=== PATIENT | male | born 1945 | race Caucasian/White ===

== ENCOUNTER 2017-06-15 09:46 | Emergency (ER) | payer MEDICARE, OTHER ==
[~2017-06-15] VITALS: Ht 172.7 cm; Wt 142.4 kg
[~2017-06-15 09:46] MED LIST: ADULT LOW DOSE81 MG PO; ALLEGRA ALLERG180 MG PO; ALLEGRA180 MG PO; ALPRAZOLAM 0.0.25 M1 PO; AMITRIPTYLINE H50 M2 PO; ANASPAZ0.125 MG DISSOLVE; ASPIR 8181 MG PO; ASPIRIN EC81 M1; ASPIRIN81 M2 PO; ASTROVASTIN PO; ATORVASTATIN CA80 MG PO; ATROVENT; ATROVENT30 ML NS; AVAPRO300 MG PO; B COMPLEX WITH1 EACH PO; BACLOFEN 10 MG10 MG PO; BENADRYL25 MG PO; BRILINTA90 MG PO; CALCIUM 500 +1 EAC5 PO; CALCIUM PO; CARDIO OMEGA B1 EACH PO; CARVEDILOL25 MG; CARVEDILOL25 MG PO; CELEXA 20 MG TA20 M1 PO; CENTRAVITES 501 EACH PO; CENTRUM SILVER1 EAC1 PO; CHLOR-TABLET4 MG PO; CHLOR-TRIMETON PO; COREG PO; COZAAR 50 MG TA50 M1 PO; CVS FISH OIL 11 EAC3 PO; EFFIENT10 MG; ETODOLAC 400 M400 M1; ETODOLAC 400 M400 M1 PO; ETODOLAC 400 M400 MG PO; FAMCICLOVIR250 MG PO; FELODIPINE 5 MG5 M1; FELODIPINE 5 MG5 M1 PO; FELODIPINE ER10 MG PO; FISH OIL 1,0001 EAC5 PO; FLOMAX0.4 MG PO; FLONASE 0.05%50 MCG NASAL; FLONASE INH; FLOVENT; FOLIC ACID; FOLIC ACID 40400 MC1 PO; FUROSEMIDE 40 M40 M1; FUROSEMIDE 40 M40 M1 PO; GENTAMICIN SU3 MG/ML OPHTHALMIC; GLUCOPHAGE XR500 MG; GLUCOPHAGE1000 MG PO; GLUCOPHAGE500 MG PO; HYDROCORTISONE30 G4 TOP; IMDUR 30 MG TAB30 M1 PO; IMDUR 60 MG TAB60 M1; IMDUR 60 MG TAB60 M1 PO; IMDUR120 MG PO; IPRATROPIUM BRO15 ML NASAL; IPRATROPIUM BROMIDE INH; IRBESARTAN PO; KETOCONAZOLE CREAM TOP; KETOCONAZOLE15 GM TOP; KLOR-CON 1010 MEQ; KLOR-CON 1010 MEQ PO; LASIX 20 MG TAB20 MG PO; LASIX 40 MG TAB40 M2 PO; LIPITOR 20 MG T20 M1 PO; LOPERAMIDE 2 MG2 M1 PO; LOSARTAN PO; LOSARTAN POTAS100 MG; LYCOPENE PO; LYCOPENE10 MG PO; MAALOX SUSPENS148 ML PO; MEDROLDOSEPACK; MELATONIN5 M2 PO; MINIPRIN81 MG PO; MUCINEX1200 MG PO; NEURONTIN 300300 M1 PO; NIASPAN ER 101000 M1 PO; NITROGLYCERIN SL; NITROGLYCERIN0.4 MG SUBLING; NITROQUICK0.4 MG; OMEGA 3 PO; OMEGA-3 PO; ONDANSETRON HCL4 M2 PO; PAIN & FEVER325 MG PO; PLAVIX 75 MG TA75 M1 PO; PLAVIX 75 MG TA75 MG; PLAVIX 75 MG TA75 MG PO; PRESERVISION A1 EAC2 PO; PRESERVISION A1 EACH PO; PRINIVIL20 MG PO; PROAIR HFA8.5 GM INH; PROTONIX40 M2 PO; RANEXA 500 MG500 M1 PO; RANEXA500 MG PO; RANITIDINE 150150 MG PO; SIMVASTATIN80 MG PO; TRAMADOL 50 MG50 MG PO; VITAMIN B-12500 MCG PO; VITAMIN C + RO500 MG PO; VITAMIN E200 UNI4 PO; VITAMINC500 PO; ZOCOR80 MG; ZOCOR80 MG PO; [UNRECOGNIZED DRUG - OTHER]; [UNRECOGNIZED DRUG - OTHER] PO; [UNRECOGNIZED DRUG - OTHER] PO; [UNRECOGNIZED DRUG - OTHER] PO; [UNRECOGNIZED DRUG - REMARK]
--- NOTE | 2017-06-15 09:49 | NUR ---
PT INSISTS ON GOING TO BATHROOM PRIOR TO EKG.
[2017-06-15 09:51] VITALS: BP 140/50
[2017-06-15 10:16] LABS: ABSOLUTE BASOPHILS 0.1 thou/uL (0.0-0.2); ABSOLUTE EOSINOPHILS 0.3 thou/uL (0.0-0.7); ABSOLUTE LYMPHOCYTES 0.8 thou/uL (0.8-5.3); ABSOLUTE MONOCYTES 0.8 thou/uL (0.0-1.2); ABSOLUTE NEUTROPHILS 5.5 thou/uL (1.6-8.1); BASOPHILS 0.7 %; EOSINOPHILS 3.8 %; HEMATOCRIT 37.1 % (42.0-52.0); HEMOGLOBIN 12.1 gm/dL (14.0-18.0); LYMPHOCYTES 11.3 %; MCH 29.3 pg (26.0-34.0); MCHC 32.6 g/dL (28.0-37.0); MONOCYTES 10.8 %; MPV 7.9 fl. (7.2-11.1); NUCLEATED RBCS 0 /100WBC; PLATELET COUNT* 250 thou/uL (150-400); POLYS 73.4 %; RBC 4.12 mil/uL (4.50-6.00); RDW-CV 17.9 % (10.5-14.5); WBC 7.5 thou/uL (4.0-11.0)
[2017-06-15 10:23] LABS: CALCIUM 8.8 mg/dL (8.5-10.1); CREATININE 1.4 mg/dL (0.6-1.3)
[2017-06-15 10:34] LABS: ALBUMIN 3.9 g/dL (3.4-5.0); TOTAL BILIRUBIN 0.5 mg/dL (<0.1-1.0); TOTAL PROTEIN 7.7 g/dL (6.4-8.2)
[2017-06-15] MEDS ORDERED: MUCINEX DM ER1 EACH PO (11:40)
[2017-06-15] MEDS ORDERED: POTASSIUM20 PO (11:42)
[2017-06-15] MEDS ORDERED: BENADRYL25 MG PO (11:45)
[2017-06-15 12:11] VITALS: BP 158/53
--- NOTE | 2017-06-15 16:10 | EKG ---
[place] [address] ELECTROCARDIOGRAM REPORT Name: CRAIG SMION Room: [facility]#: [id number] Admission: 06/15/17 Attend Phys: Discharge: 06/15/17 Date of : 43 Report #: [id number] THIS REPORT FOR: //name// [facility] ED Test Date: 2017-06-15 Test Time: 09:53:41 Pat Name: CRAIG SIMON Department: Room: [facility] Gender: M Design Teacher: STUDENT : 1945 Requested By: Tito Gutierrez Order Number: [id number] MD: Solomon Schaffer Measurements Intervals [place] Rate: 79 P: 60 NH: 211 QRS: 52 QRSD: 111 T: 225 QT: 396 QTc: 455 Interpretive Statements Sinus rhythm Inferior and lateral ST segment depression, consider ischemia Baseline wander in lead(s) V3 Compared to ECG 03/15/2017 03:08:02 No significant changes noted Electronically Signed On 06-15-2017 16:10:02 AUDIOMETRIST by Solomon Schaffer [email or web address] <ELECTRONICALLY SIGNED> By: Solomon Schaffer MD, [facility] 06/15/17 1610 0953 0953 Solomon Schaffer MD, [facility] /EPI
== END 2017-06-15 12:14 | disposition left against medical advice (07) ==
LOC: M.ERS 09:46 → M.TBA-ER 11:07
PROVIDERS: Emergency Medicine Emergency Medical Services
DX: R07.9 Chest pain, unspecified (principal); E78.5 Hyperlipidemia, unspecified; E66.01 Morbid (severe) obesity due to excess calories; I25.10 Atherosclerotic heart disease of native coronary artery without angina pectoris; Z96.653 Presence of artificial knee joint, bilateral; Z88.8 Allergy status to other drugs, medicaments and biological substances; Z88.2 Allergy status to sulfonamides; Z68.42 Body mass index [BMI] 45.0-49.9, adult

== ENCOUNTER 2017-06-23 09:00 | Inpatient (IN) | payer MEDICARE, OTHER ==
[2017-06-23] VITALS (11 sets, daily range): BP systolic 107–167; BP diastolic 32–79
[~2017-06-23] VITALS: Ht 172.7 cm; Wt 141.1 kg
--- NOTE | ~2017-06-23 | H ---
[address] [address] HISTORY AND PHYSICAL Name: CRAIG SIMON Room: [address]#: [id number] Admission: 06/23/17 Attend Phys: Helio Malone MD, Discharge: 06/24/17 Date of : 43 Report #: [id number] THIS REPORT FOR: //name// Please refer to the History and Physical performed in the physician's office. By: 1449Medical Records Staff MELANIA /EMILIA
[~2017-06-23 09:00] MED LIST changes: +MUCINEX DM ER1 EACH PO; +POTASSIUM20 PO
[2017-06-23 09:50] LABS: HEMATOCRIT 36.5 % (42.0-52.0); HEMOGLOBIN 11.8 gm/dL (14.0-18.0); MCH 29.4 pg (26.0-34.0); MCHC 32.4 g/dL (28.0-37.0); MCV 90.7 fL (80.0-100.0); MPV 7.3 fl. (7.2-11.1); RBC 4.02 mil/uL (4.50-6.00); WBC 7.7 thou/uL (4.0-11.0)
[2017-06-23] MEDS ORDERED: TYLENOL EXTRA500 MG PO (09:57)
[2017-06-23 10:01] LABS: APTT 27.3 Seconds (25.0-31.3); INR 1.1; PROTIME 10.7 Seconds (9.20-11.50)
[2017-06-23 10:07] LABS: ALBUMIN 3.6 g/dL (3.4-5.0); CALCIUM 9.1 mg/dL (8.5-10.1); CREATININE 1.4 mg/dL (0.6-1.3); POTASSIUM 4.2 mmol/L (3.5-5.1); TOTAL BILIRUBIN 0.6 mg/dL (<0.1-1.0); TOTAL PROTEIN 7.2 g/dL (6.4-8.2)
--- NOTE | 2017-06-23 14:50 | NUR ---
PT ARRIVED ON THE UNIT FROM PHOTOGRAPHIC LABORATORY SUPERVISOR. REPORT TAKEN FROM EWA GODWIN. R REX DRSG IS CLEAN DRY AND INTACT. VSS WNL. PT IS A&O WITH NO C/O PAIN. LUNGS ARE CLEAR ON ROOM AIR. FAMILY IS AT BEDSIDE. FALL RISK AND MEDICARE RIGHTS SIGNED AND IN CHART. PT HAS A BLACK WITH CLEAR YELLOW URINE. BED IS IN LOW POSTION CALL LIGHT IN REACH. EDUCATION GIVEN. WM.
--- NOTE | 2017-06-23 17:28 | EKG ---
[place] [address] ELECTROCARDIOGRAM REPORT Name: CRAIG SIMON Room: [address] IN M.R.#: [id number] Admission: 06/23/17 Attend Phys: Helio Malone MD, Discharge: Date of : 43 Report #: [id number] THIS REPORT FOR: //name// [facility] Test Date: 2017-06-23 Test Time: 09:41:57 Pat Name: CRAIG SIMON Department: Room: [facility] Gender: M Diagnostics Tech: PJ : 1945 Requested By: Helio Malone Order Number: [id number] Tip MD: Helio Malone Measurements Intervals [place] Rate: 64 P: 72 RI: 212 QRS: 49 QRSD: 112 T: 206 QT: 432 QTc: 446 Interpretive Statements Sinus rhythm Borderline prolonged RI interval Incomplete left bundle branch block Probable LVH with secondary repolarization abnormality Electronically Signed On 06-23-2017 17:28:24 FITNESS LEADER by Helio Malone [email or web address] <ELECTRONICALLY SIGNED> By: Helio Malone MD, [facility] 06/23/17 1728 D: [id number] 0 Helio Malone MD, FACC /EPI
--- NOTE | 2017-06-23 17:30 | EKG ---
[place] [address] ELECTROCARDIOGRAM REPORT Name: CRAIG SIMON Room: [address] ADM IN M.R.#: [id number] Admission: 06/23/17 Attend Phys: Helio Malone MD, Discharge: Date of : 43 Report #: [id number] THIS REPORT FOR: //name// [facility] Test Date: 2017-06-23 Test Time: 15:53:26 Pat Name: CRAIG SIMON Department: Room: [address] Gender: M Registered Veterinary Technician: MISAEL : 1945 Requested By: Helio Malone Order Number: [id number] Tip MD: Helio Malone Measurements Intervals [place] Rate: 68 P: 0 W[place]: 171 QRS: 60 QRSD: 112 T: 246 QT: 393 QTc: 418 Interpretive Statements Sinus rhythm Incomplete left bundle branch block Compared to ECG 06/15/2017 09:53:41 no significant interval change Electronically Signed On 06-23-2017 17:30:20 RECORDING STUDIO INTERN by Helio Malone [email or web address] <ELECTRONICALLY SIGNED> By: Helio Malone MD, [facility] 06/23/17 1730 1553 1553 Helio Malone MD, FAC /EPI
[2017-06-24] VITALS: BP 100/45
--- NOTE | 2017-06-24 03:06 | NUR ---
PT ALERT ORIENTED. R REX HARDY D/I. OOB AT 1999. UP TO CHAIR WITH STAND BY ASSIST. TELEMETRY SHOWS SR BBB 1ST DEGREE AVB. DENIES CP OR DISCOMFORT. TRAMADOL GIVEN HS FOR MILD BACK PAIN. XANAX GIVEN FOR ANXIETY. NS INFUSING AT 100MLS/HR THEN DC THIS AM AT 0600. BLACK WITH CLEAR YELLOW. WILL CONTINUE TO MONITOR.
[2017-06-24 04:51] VITALS: BP 119/33
[2017-06-24 04:51] LABS: HEMATOCRIT 34.2 % (42.0-52.0); HEMOGLOBIN 11.3 gm/dL (14.0-18.0); MCHC 33.1 g/dL (28.0-37.0); MCV 90.7 fL (80.0-100.0); MPV 7.6 fl. (7.2-11.1); RBC 3.77 mil/uL (4.50-6.00); WBC 8.9 thou/uL (4.0-11.0)
[2017-06-24 05:26] LABS: ALBUMIN 3.4 g/dL (3.4-5.0); ALKALINE PHOSPHATASE 58 U/L (46-116); ANION GAP 7 mmol/L (7-16); BUN 22 mg/dL (7-18); CALCIUM 8.6 mg/dL (8.5-10.1); CHLORIDE 109 mmol/L (98-107); CO2 27 mmol/L (21-32); CREATININE 1.3 mg/dL (0.6-1.3); GLUCOSE 106 mg/dL (70-99); POTASSIUM 4.8 mmol/L (3.5-5.1); SGOT 23 U/L (15-37); SGPT 29 U/L (30-65); SODIUM 143 mmol/L (136-145); TOTAL BILIRUBIN 0.7 mg/dL (<0.1-1.0); TOTAL PROTEIN 6.5 g/dL (6.4-8.2); TROPONIN-I LEVEL 0.35 ng/mL (<0.06)
[2017-06-24 05:30] LABS: SERUM ASSESSMENT Clear
[2017-06-24 05:41] LABS: CHOLESTEROL 123 mg/dL (<200); HDL CHOLESTEROL 38 mg/dL (>40); LDL CHOLESTEROL 69 mg/dL (<100); TC:HDL 3.2 Ratio (Not establshd); TRIGLYCERIDE 83 mg/dL (<150); VLDL 17 mg/dL (<40)
--- NOTE | 2017-06-24 06:59 | NUR ---
BLACK WITH DARK KATELIN BLOOD TINGED URINE.
[2017-06-24 08:00] VITALS: BP 146/50
[2017-06-24 09:21] VITALS: BP 167/43
--- NOTE | 2017-06-24 10:45 | CARD ---
[address] [address] CARDIAC CATH REPORT Name: CRAIG SIMON Room: [address] IN ..#: [id number] Admission: 06/23/17 Attend Phys: Helio Malone MD, Discharge: Date of : 43 Report #: [id number] THIS REPORT FOR: //name// APPROVED REPORT Patient Details The patient is a 72 year-old male Event Personnel Lindsay Gimenez RN, Helio Malone Boat Deckhand, Yamilet Garcia RTR Monitor, Satya Jo Procedures Performed Art Access - R femoral artery* PAVAN Revasc Graft Single DIAG C9604 SVGREVSING PTCA Single Vessel LAD [id number] PCISINGLE; selective coronary arteriography and graft study Indication Unstable angina Risk Factors Obesity, Hypercholesterolemia, Hypertension Previous Procedures/Diagnoses Previous CABGPrevious PCI Admission/Lab Medications/Medications given during procedure Lidocaine Subcut 5 ml, Heparin IV 20,, Ticagrelor PO 180 mg, Aspirin PO 81 mg000 units Procedure Narrative A [place] 6 FR sheath was inserted into the right femoral artery. Coronary angiography was performed using coronary diagnostic catheters. The left coronary system was accessed and visualized with a 6FR JL 4.0 catheter. Closure device was deployed with a 6 Fr Angioseal STS 6Fr. The patient tolerated the procedure well and there were no complications associated with the procedure. Intraoperative Conscious Sedation Sedation start time: 11:34 Case end Time: 13:26 Fentanyl 50 mcg Versed 4 mg Fluoro Time: 25.8 [place] [address] CARDIAC CATH REPORT Name: CRAIG SIMON Room: [address] IN [facility].#: [id number] Admission: 06/23/17 Attend Phys: Helio Malone MD, Discharge: Date of : 43 Report #: [id number] Dose: DAP 52101 cGycm2 4405.59 mGy Contrast Type and Amount: Visipaque 560 ml [place] Artery Percent Stenosis #1 previously defined widely patent LYON graft to the LAD #2 patent interposition graft vein the diagonal and circumflex with 90% proximal graft narrowing and tandem 50% mid graft stenosis Diagnostic Cath Left Main 0% narrowing LAD 70% tubular very proximal LAD in-stent restenosis with tandem 80% mid LAD stenosis with retrograde filling of the LYON graft Circumflex Prominent though nondominant circumflex with 80% heavily calcified mid vessel stenosis Right Coronary Previously defined small nondominant vessel without significant narrowing Hemodynamics The aortic pressure is 151/59 mmHg with a mean of 87 mmHg. PCI Technique Lesion Anticoagulation was achieved with Heparin. Percutaneous coronary intervention was performed on the vein graft to the diagnonal branch. The lesion stenosis prior to intervention was 90% with MICHAEL 3 flow. A 6FR LAUNCHER JL4.0 Guide Catheter was used to engage the ostium. A IG: BMW 190cm Interventional Guidewire was used to cross the lesion. BALLOON DILATION A Balloon catheter Trek RX 2.5 X 12 was inserted and inflated up to 16.00atm for 10seconds. Additional Inflation: 16.00atm for 6seconds. Additional Inflation: 18.00atm for 6seconds. STENT DEPLOYMENT A drug-eluting stent Xience Alpine RX 3.0X15 was inserted and inflated up to 17.00atm for 12seconds. Additional Inflation: 16.00atm for 10seconds. Final angiography reveals 0 % stenosis with MICHAEL 3 flow. PCI Technique Lesion 2 Percutaneous Coronary Intervention was performed on the proximal left anterior descending artery segment. The [place] [address] CARDIAC CATH REPORT Name: CRAIG SIMON Room: [address]#: [id number] Admission: 06/23/17 Attend Phys: Helio Malone MD, Discharge: Date of : 43 Report #: [id number] intervention was 75% with MICHAEL 3 flow. Balloon Dilation A Balloon catheter 3.0 x15 stent balloon was inserted and inflated up to 15.00atm for 15seconds. Repeat angiography revealed the following post-dilatation results: 10% residual narrowing. Final angiography reveals 10 % stenosis with MICHAEL 3 flow. Conclusion #1 significant coronary artery disease characterized by the following: A 75% very proximal LAD in-stent restenosis followed by tandem 80% mid LAD stenosis with retrograde filling of a widely patent LYON graft, B 80% heavily calcified stenosis of the midportion of the prominent though nondominant circumflex, C previously defined nondominant right coronary artery without significant narrowing #2 graft study characterized by the following A widely patent LYON graft to the LAD, B patent interposition graft between the diagonal and circumflex with 90% proximal graft narrowing and tandem 50% mid graft stenosis #3 successful percutaneous coronary intervention with deployment of drug-eluting stent at site of 90% stenosis in the graft to the circumflex with 0% residual following stent deployment and MICHAEL-3 flow to the distal vessel #4 successful percutaneous vessel coronary angioplasty at the site of 75% very proximal LAD in-stent restenosis with 10% residual narrowing following final dilatation and MICHAEL-3 flow to the distal vessel Recommendations Aggressive Medical Therapy Weight Loss Reduction [place] [address] CARDIAC CATH REPORT Name: ADEBAYODONATOCRAIG Aida Room: [address]#: [id number] Admission: 06/23/17 Attend Phys: Helio Malone MD, Discharge: Date of : 43 Report #: [id number] Aspirin (any) Ticagrelor <ELECTRONICALLY SIGNED> By: Helio Malone MD, [facility] 06/24/17 1044 1044 1044Helio Malone MD, FACC /INF
--- NOTE | 2017-06-24 12:14 | NUR ---
ASSUMED CARE OF PT THIS AM ASSESSED AND DOCUMENTED. PT D/C'D TO HOME. ALL CONSULTS OK WITH D/C. D/C'D SOFIA, ROBBY, AND CARDIAC MONITER. EDUCATION GIVEN RE: FOLLOW-UPS, MEDICATIONS, AND DR ORDERS. APPT CARDS GIVEN. ALL BELONGINGS PACKED UP AND LEFT WITH PT ACCOMPANIED BY STAFF.
--- NOTE | 2017-06-24 12:51 | EKG ---
[place] [address] ELECTROCARDIOGRAM REPORT Name: CRAIG SIMON Room: [address] DIS IN M.R.#: [id number] Admission: 06/23/17 Attend Phys: Helio Malone MD, Discharge: 06/24/17 Date of : 43 Report #: [id number] THIS REPORT FOR: //name// Test Date: 2017-06-24 Test Time: 08:13:38 Pat Name: CRAIG SIMON Department: Room: [address] Gender: M Houseman: 26 : 1945 Requested By: Helio Malone Order Number: [id number] Reading MD: Solomon Schaffer Measurements Intervals [place] Rate: 65 P: 70 MT: 196 QRS: 40 QRSD: 108 T: 173 QT: 413 QTc: 430 Interpretive Statements Sinus rhythm Nonspecific repol abnormality, lateral leads Compared to ECG 06/23/2017 15:53:26 Early repolarization now present Left bundle-branch block no longer present Electronically Signed On 06-24-2017 12:51:05 CURBSTONE SETTER by Solomon Schaffer [email or web address] <ELECTRONICALLY SIGNED> By: Solomon Schaffer MD, FACC 06/24/17 1251 0813 2 Solomon Schaffer MD, FAC /EPI
--- NOTE | 2017-07-06 17:13 | D ---
[address] [address] DISCHARGE SUMMARY Name: CRAIG SIMON Room: [address] IN M.R.#: [id number] Admission: 06/23/17 Attend Phys: Helio Malone MD, Discharge: 06/24/17 Date of : 43 Report #: [id number] THIS REPORT FOR: //name// CC: Helio Aggarwal [facility] DATE OF SERVICE: 06/24/2017 FINAL DISCHARGE DIAGNOSES: 1. Unstable angina. 2. Coronary artery disease, status post remote coronary artery bypass grafting. 3. Status post percutaneous coronary intervention with the vein graft to the circumflex and proximal left anterior descending. 4. Hypercholesterolemia. 5. Hypertension. 6. Exogenous obesity. 7. Status post aortic valve replacement. 8. Chronic pulmonary disease. PROCEDURES: On 06/23/2017 -- selective coronary arteriography and graft study; percutaneous coronary intervention with deployment of drug-eluting stent and the vein graft to the circumflex with dilatation of the in-stent restenotic proximal LAD lesion. He was found to have some flow. He is a 72-year-old male with complex coronary artery disease, status post remote coronary artery bypass grafting and more recent percutaneous coronary interventions. He presented with unstable angina, underwent cardiac catheterization on 06/23/2017. That study demonstrated 70-75% proximal LAD in-stent restenosis with 90% stenosis of the portion of the vein graft connecting the diagonal and circumflex. He had a widely patent LYON graft to the LAD and a nondominant right coronary artery. There was 90% heavily calcified stenosis of the mid portion of the [place] circumflex, with the circumflex being filled by the interposition graft from the diagonal to the circumflex. The patient did well post-procedurally. I placed one 3.0 x 15 mm Xience Alpine drug-eluting stent in the vein graft to the circumflex and dilated the proximal LAD with a 3.0 x 15 balloon inflated to 18 atmospheres, with 20% residual narrowing there and 0% residual narrowing in the graft with MICHAEL 3 flow of the distal circulation. The patient did well post-procedurally with good hemostasis at the right femoral site of catheterization. Lab revealed a hemoglobin of 11.3, white blood cell count of 8900, with 215,000 platelets. Sodium 143, potassium 4.8; BUN 22, down from 31; creatinine 1.3, down from 1.4. Glucose 106, cholesterol 123, triglycerides 83, HDL 38, LDL 69 [place] [address] DISCHARGE SUMMARY Name: CRAIG SIMON Room: [address]#: [id number] Admission: 06/23/17 Attend Phys: Helio Malone MD, Discharge: 06/24/17 Date of : 43 Report #: [id number] The patient ambulated in the hallways without difficulty. He was discharged home on the following medications: Acetaminophen 500 mg 2 tablets 4 times a day as needed for pain, ascorbic acid or vitamin C 500 mg 2 tablets daily, aspirin 81 mg daily, atorvastatin 20 mg daily, calcium carbonate 2 tablets daily, carvedilol 25 mg b.i.d., cyanocobalamin 1250 mcg daily, Chelsie 180 mg daily, fluticasone 1-2 sprays nasally daily, furosemide 40 mg in the a.m. and 20 mg at noon, Guaifenesin one tablet b.i.d., ipratropium bromide 1-2 sprays nasally t.i.d., isosorbide mononitrate 30 mg q.a.m., losartan 50 mg daily, fish oil omega-3 fatty acid 1000 mg daily, potassium chloride 20 mEq in the evening, ranitidine 300 mg at bedtime, ranolazine 1000 mg b.i.d., ticagrelor 90 mg b.i.d. with 180 mg given periprocedurally, vitamin C and zinc 2 tablets daily. The patient is scheduled to return to see my nurse practitioner, Elmira Mccracken, on 07/04/2017 at 1400 and myself on 08/08/2017 at 0900. Thus, the patient is discharged to home in stable condition on the aforementioned medications with followup as iterated above. <ELECTRONICALLY SIGNED> By: Helio Malone MD, [facility] 07/06/17 1713 0935 1130Jokaty Malone MD, [facility] /nt
== END 2017-06-24 12:12 | disposition home or self-care (01) | DRG 247 ==
LOC: M.CL 09:00 → M.TBA-CV 13:42 → M.2W 13:42
PROVIDERS: ADMIT Internal Medicine
PROC: 4A023N7 Measurement of Cardiac Sampling and Pressure, Left Heart, Percutaneous Approach (ICD-10-PCS; principal; 2017-06-24)
PROC: B2111ZZ Fluoroscopy of Multiple Coronary Arteries using Low Osmolar Contrast (ICD-10-PCS; principal; 2017-06-24)
PROC: 027034Z Dilation of Coronary Artery, One Artery with Drug-eluting Intraluminal Device, Percutaneous Approach (ICD-10-PCS; principal; 2017-06-24)
DX: I25.720 Atherosclerosis of autologous artery coronary artery bypass graft(s) with unstable angina pectoris (principal); T82.855A Stenosis of coronary artery stent, initial encounter; Z68.42 Body mass index [BMI] 45.0-49.9, adult; Y83.8 Other surgical procedures as the cause of abnormal reaction of the patient, or of later complication, without mention of misadventure at the time of the procedure; E78.00 Pure hypercholesterolemia, unspecified; I10 Essential (primary) hypertension; J44.9 Chronic obstructive pulmonary disease, unspecified; E66.09 Other obesity due to excess calories; Z95.1 Presence of aortocoronary bypass graft; Z95.2 Presence of prosthetic heart valve; Y92.89 Other specified places as the place of occurrence of the external cause; Z79.899 Other long term (current) drug therapy

== ENCOUNTER → 2017-06-27 | Outpatient (CLI) | payer MEDICARE, OTHER ==
[~2017-06-27] MED LIST changes: +ALLERGY RELIEF180 MG PO; +AMBIEN 5 MG TABL5 M1 PO; +CARAFATE 1 GM TA1 G1 PO; +COZAAR 25 MG TA25 M2 PO; +DULCOLAX5 MG PO; +ELIQUIS5 MG PO; +FISH OIL 1,001000 M2 PO; +HUMALOG100 UNIT/1 SUBQ; +IPRAT-ALBUT 0.5-3 ML INH; +IPRATROPIU0.2 MG/1 M NASAL; +IRON325 PO; +KEFLEX500 M1 PO; +PREDNISONE 10 M10 MG PO; +PROAIR HFA8.5 GM NASAL; +PROTONIX40 M1 PO; +SPIRONOLACTONE25 M1 PO; +SPIRONOLACTONE25 MG PO; +TOPROL XL25 MG PO; +TUMS PO; +TYLENOL EXTRA500 MG PO; +ZANTAC 150MG T150 MG PO
== END ==
LOC: M.ULTRA 11:30
DX: R10.31 Right lower quadrant pain (principal)

== ENCOUNTER 2017-08-07 10:30 | Observation (INO) | payer MEDICARE, OTHER ==
[2017-08-07] VITALS (11 sets, daily range): BP systolic 123–147; BP diastolic 49–60
[~2017-08-07] VITALS: Ht 172.7 cm; Wt 145.6 kg
--- NOTE | ~2017-08-07 | H ---
[address] [address] HISTORY AND PHYSICAL Name: CRAIG SIMON Room: [address] [place] Beg[place]#: [id number] Admission: 08/07/17 Attend Phys: Helio Malone MD, Discharge: 08/08/17 Date of : 43 Report #: [id number] THIS REPORT FOR: //name// Please refer to the History and Physical performed in the physician's office. By: 1452Medical Records Staff MELANIA /EMILIA
--- NOTE | ~2017-08-07 | EKG ---
[place] [address] ELECTROCARDIOGRAM REPORT Name: CRAIG SIMON Room: [address] ADM IN M.R.#: [id number] Admission: 08/07/17 Attend Phys: Helio Malone MD, Discharge: Date of : 43 Report #: [id number] THIS REPORT FOR: //name// [facility] Test Date: 2017-08-08 Test Time: 08:32:48 Pat Name: CRAIG SIMON Department: Room: [facility] Gender: M Customs Guard: : 1945 Requested By: Helio Malone Order Number: [id number] Reading MD: Measurements Intervals [place] Rate: 75 P: 78 [place]: 204 QRS: 64 QRSD: 109 T: 229 QT: 413 QTc: 462 Interpretive Statements Sinus rhythm Nonspecific repol abnormality, diffuse leads Baseline wander in lead(s) III Compared to ECG 08/07/2017 14:34:50 Atrial fibrillation no longer present [email or web address] By: 0832 0832 Epiphany EpiphanyMD /EPI
[~2017-08-07 10:30] MED LIST changes: -ALLERGY RELIEF180 MG PO; -AMBIEN 5 MG TABL5 M1 PO; -CARAFATE 1 GM TA1 G1 PO; -COZAAR 25 MG TA25 M2 PO; -DULCOLAX5 MG PO; -ELIQUIS5 MG PO; -FISH OIL 1,001000 M2 PO; -HUMALOG100 UNIT/1 SUBQ; -IPRAT-ALBUT 0.5-3 ML INH; -IPRATROPIU0.2 MG/1 M NASAL; -IRON325 PO; -KEFLEX500 M1 PO; -PREDNISONE 10 M10 MG PO; -PROAIR HFA8.5 GM NASAL; -PROTONIX40 M1 PO; -SPIRONOLACTONE25 M1 PO; -SPIRONOLACTONE25 MG PO; -TOPROL XL25 MG PO; -TUMS PO; -ZANTAC 150MG T150 MG PO
[2017-08-07 11:01] LABS: HEMATOCRIT 39.7 % (42.0-52.0); HEMOGLOBIN 13.1 gm/dL (14.0-18.0); MCH 30.8 pg (26.0-34.0); MCV 93.4 fL (80.0-100.0); MPV 7.6 fl. (7.2-11.1); RBC 4.25 mil/uL (4.50-6.00); RDW-CV 17.2 % (10.5-14.5); WBC 8.8 thou/uL (4.0-11.0)
[2017-08-07 11:10] LABS: ANION GAP 12 mmol/L (7-16); BUN 22 mg/dL (7-18); CALCIUM 9.4 mg/dL (8.5-10.1); CHLORIDE 103 mmol/L (98-107); CO2 25 mmol/L (21-32); CREATININE 1.2 mg/dL (0.6-1.3); GLUCOSE 88 mg/dL (70-99); SODIUM 140 mmol/L (136-145)
[2017-08-07 11:11] LABS: APTT 27.5 Seconds (25.0-31.3); PROTIME 10.1 Seconds (9.20-11.50)
[2017-08-07 11:15] LABS: ALBUMIN 3.9 g/dL (3.4-5.0); ALKALINE PHOSPHATASE 65 U/L (46-116); CHOLESTEROL 141 mg/dL (<200); HDL CHOLESTEROL 47 mg/dL (>40); LDL CHOLESTEROL 63 mg/dL (<100); SERUM ASSESSMENT Clear; SGOT 20 U/L (15-37); SGPT 29 U/L (30-65); TOTAL BILIRUBIN 0.5 mg/dL (<0.1-1.0); TRIGLYCERIDE 159 mg/dL (<150); VLDL 32 mg/dL (<40)
[2017-08-07] MEDS ORDERED: FISH OIL 1,001000 M2 PO (16:38)
--- NOTE | 2017-08-07 17:59 | EKG ---
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: [facility] : 1945 Requested By: Helio Malone Order Number: [id number] Reading MD: Solomon Schaffer Measurements Intervals [place] Rate: 66 P: 81 [place]: 225 QRS: 51 QRSD: 107 T: 206 QT: 365 QTc: 383 Interpretive Statements Sinus rhythm Prolonged [place] interval Repol abnrm suggests ischemia, lateral leads Compared to ECG 06/24/2017 08:13:38 First degree AV block now present Possible ischemia now present Electronically Signed On 08-07-2017 17:59:06 CDT by Solomon Schaffer [email or web address] <ELECTRONICALLY SIGNED> By: Solomon Schaffer MD, FACC 08/07/17 1759 1056 1056 Solomon Schaffer MD, FAC /EPI
--- NOTE | 2017-08-07 17:59 | EKG ---
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: [facility] : 1945 Requested By: Helio Malone Order Number: [id number] Reading MD: Solomon Schaffer Measurements Intervals [place] Rate: 74 P: [place]: QRS: 68 QRSD: 113 T: 264 QT: 391 QTc: 434 Interpretive Statements Atrial fibrillation Borderline intraventricular conduction delay Borderline repol abnormality, diffuse leads Compared to ECG 06/24/2017 08:13:38 Sinus rhythm no longer present Electronically Signed On 08-07-2017 17:59:32 CDT by Solomon Schaffer [email or web address] <ELECTRONICALLY SIGNED> By: Solomon Schaffer MD, [facility] 08/07/17 1759 1434 1434 Solomon Schaffer MD, [facility] /EPI
[2017-08-08 03:42] VITALS: BP 127/49
[2017-08-08 05:28] LABS: HEMATOCRIT 33.3 % (42.0-52.0); HEMOGLOBIN 11.3 gm/dL (14.0-18.0); MCH 31.7 pg (26.0-34.0); MCHC 34.1 g/dL (28.0-37.0); MCV 93.1 fL (80.0-100.0); MPV 7.9 fl. (7.2-11.1); RBC 3.58 mil/uL (4.50-6.00); RDW-CV 17.2 % (10.5-14.5)
[2017-08-08 06:05] LABS: ALBUMIN 3.1 g/dL (3.4-5.0); CALCIUM 8.8 mg/dL (8.5-10.1); CREATININE 1.1 mg/dL (0.6-1.3); POTASSIUM 4.6 mmol/L (3.5-5.1); TOTAL BILIRUBIN 0.6 mg/dL (<0.1-1.0)
[2017-08-08 06:07] LABS: TROPONIN-I LEVEL 1.52 ng/mL (<0.06)
[2017-08-08 08:15] VITALS: BP 156/49
[2017-08-08 08:44] VITALS: BP 143/53
[2017-08-08 09:07] VITALS: BP 143/53
[2017-08-08 09:19] VITALS: BP 143/53
[2017-08-08 11:33] VITALS: BP 143/53
--- NOTE | 2017-08-09 16:34 | D ---
[address] [address] DISCHARGE SUMMARY Name: CRAIG SIMON Room: [address] [place] Beg[place]#: [id number] Admission: 08/07/17 Attend Phys: Helio Malone MD, Discharge: 08/08/17 Date of : 43 Report #: [id number] THIS REPORT FOR: //name// CC: Helio Aggarwal [facility] DATE OF SERVICE: 08/08/2017 FINAL DISCHARGE DIAGNOSES: 1. Unstable angina. 2. Coronary artery disease, status post remote coronary artery bypass grafting. 3. Status post percutaneous coronary intervention of the vein graft and interposition graft between the diagonal and circumflex on 08/07/2017. 4. Hypertension. 5. Hyperlipoproteinemia. 6. Exogenous obesity. 7. Status post aortic valve replacement. 8. Chronic obstructive pulmonary disease. PROCEDURES: On 08/07/2017 -- selective coronary arteriography, graft study, percutaneous coronary intervention with deployment of two drug-eluting stents in the proximal midportion of the interposition graft between the diagonal and the circumflex. HISTORY: The patient is a 72-year-old male with coronary artery disease status post remote coronary artery bypass grafting and subsequent percutaneous coronary interventions. He has underlying hypertension, hyperlipoproteinemia and exogenous obesity. There is a history of remote aortic valve replacement. He presented with increasing episodes of chest discomfort compatible with unstable angina. In this context, he underwent cardiac catheterization on 08/07/2017, which revealed sequential lesions in the interposition graft between the diagonal and circumflex, 90% in the proximal portion with local thrombus at the site and 90% in-stent restenosis in the midportion of that graft. I placed two drug-eluting stents in the proximal midportion of the graft, post-dilated to 3.2 mm proximally and 2.8 mm in the second portion with 0% residual narrowing and MICHAEL 3 flow of the distal vessel. There was a minimal increase in troponin by virtue of the dispersion of thrombus in the proximal area with a maximal value being 1.5. The patient had no chest discomfort and ambulated in the hallways without difficulty with good hemostasis at the right femoral site of catheterization. LABORATORY DATA: On 08/08/2017 revealed sodium 143, potassium 4.6, BUN 17 and creatinine 1.1. Hemoglobin 11.3, white blood cell count 8000 and platelets 199,000. As noted above, the patient ambulated in the [place] [address] DISCHARGE SUMMARY Name: CRAIG SIMON Room: [address] [place] Beg[place]#: [id number] Admission: 08/07/17 Attend Phys: Helio Malone MD, Discharge: 08/08/17 Date of : 43 Report #: [id number] MEDICATIONS: He was discharged to home on the following medications: Acetaminophen 1000 mg as needed for pain, ascorbic acid or vitamin C two 500 mg tablets daily, aspirin 81 mg daily, atorvastatin 20 mg daily, calcium carbonate with vitamin D 2 tablets daily, carvedilol 25 mg b.i.d., vitamin B12 or cyanocobalamin 1250 mcg daily, fish oil 1000 mg daily, Chelsie 180 mg daily, fluticasone 1-2 sprays daily, furosemide 40 mg daily with 20 mg at noon, guaifenesin one tablet b.i.d., ipratropium 1-2 sprays t.i.d., isosorbide mononitrate 60 mg daily, losartan 50 mg daily, potassium chloride 20 mEq in the evening, ranitidine 300 mg at bedtime, ranolazine 1000 mg b.i.d., ticagrelor 90 mg b.i.d., vitamin C, E, zinc and copper 2 tablets daily, albuterol or ProAir 2 puffs q.i.d., alprazolam 0.5 mg as needed, diphenhydramine 75 mg p.r.n., p.r.n. sublingual nitroglycerin, ondansetron 4 mg as needed and tramadol or Ultram 100 mg as needed. The patient is scheduled to see my nurse practitioner in one week, and I will plan to see him on 09/19/2017 at 1520 hours. <ELECTRONICALLY SIGNED> By: Helio Malone MD, [facility] 08/09/17 1634 0925 1000Jokaty Malone MD, [facility] /nt
--- NOTE | 2017-08-13 11:24 | CARD ---
[address] [address] CARDIAC CATH REPORT Name: CRAIG SIMON Room: [address] Ross Begum#: [id number] Admission: 08/07/17 Attend Phys: Helio Malone MD, Discharge: 08/08/17 Date of : 43 Report #: [id number] THIS REPORT FOR: //name// APPROVED REPORT Study performed: 08/07/2017 11:54:18 Patient Details Patient Status: Out-Patient Room #: The patient is a 72 year-old male Event Personnel Helio Malone Trimmer Press Clippings, Risa Villatoro RN Potash Flaker, Rain Monreal, Satya Jo, Leticia Tovar RN Potash Flaker Procedures Performed Art Access - R femoral artery* selective coronary arteriography and graft study, PTCA with Stenting Indication Unstable angina Risk Factors Obesity, Hypercholesterolemia, Hypertension Previous Procedures/Diagnoses Previous CABGPrevious PCI Admission/Lab Medications/Medications given during procedure Angiomax bolus and infusion Procedure Narrative The patient was brought electively to the Cardiac Catheterization Laboratory and was prepped and draped in a sterile manner. The right femoral was infiltrated with 1% Lidocaine subcutaneous anesthesia. A [place] 6 FR sheath was inserted into the right femoral artery. Coronary angiography was performed using coronary diagnostic catheters. The left coronary system was accessed and visualized with a Diagnostic 6fr JL 4 catheter. Pre-demployment femoral angiogram was performed . Closure device was deployed with a 6 Fr Angioseal STS 6Fr. The patient tolerated the procedure well and there were no complications associated with the procedure. Access was complicated by virtue of the [place] [address] CARDIAC CATH REPORT Name: CRAIG SIMON Room: [address] Ross Begum#: [id number] Admission: 08/07/17 Attend Phys: Helio Malone MD, Discharge: 08/08/17 Date of : 43 Report #: [id number] Intraoperative Conscious Sedation Sedation start time: 12:32 Case end Time: 13:53 Fentanyl 50 mcg Versed 2 mg Fluoro Time: 21.6 minutes Dose: DAP 337330 cGycm2 4073.48 mGy Contrast Type and Amount: Visipaque 360 ml [place] Percent Stenosis #1 widely patent LYON graft to the LAD, #2 patent interposition graft in the diagonal and circumflex with 90% proximal and 80% mid graft stenosis, prominent thrombus within the proximal lesion Diagnostic Cath Left Main 10% narrowing LAD 20% proximal narrowing and 80% tubular mid vessel stenosis and retrograde filling lining a patent LYON graft to the LAD Circumflex 75% proximal and 90% heavily calcified mid vessel stenosis, this being a dominant vessel Right Coronary Small nondominant vessel Hemodynamics The aortic pressure is 156/62 mmHg with a mean of mmHg. PCI Technique Lesion Anticoagulation was achieved with Angiomax. Percutaneous coronary intervention was performed on the SVG midportion. The lesion stenosis prior to intervention was 80% with MICHAEL 3 flow. A 6FR JL 4.0 Guide Catheter was used to engage the LCA ostium. A BMW Interventional Guidewire was used to cross the lesion. BALLOON DILATION A Balloon catheter Trek RX 2.75 X 12 was inserted and inflated up to 15.00atm for 9seconds. Additional Inflation: 18.00atm for 11seconds. Additional Inflation: 16.00atm for 8seconds. 17ATM X 9 SECONDS 16 JACK X 10 SECONDS 18 JACK X 9 SECONDS 18 JACK X 6 SECONDS POST STENT DEPLOYMENT BALLOON DILATION A Balloon catheter NC Trek RX 3.0 X 12 was inserted and inflated up to 14atm for 8seconds. Additional Inflation: 18atm for 8[place] [address] CARDIAC CATH REPORT Name: ADEBAYODONATOCRAIG Aida Room: [address] Ross Begum#: [id number] Admission: 08/07/17 Attend Phys: Helio Malone MD, Discharge: 08/08/17 Date of : 43 Report #: [id number] Final angiography reveals 0 % stenosis with MICHAEL 3 flow. PCI Technique Lesion 2 Percutaneous Coronary Intervention was performed on the proximal portion of the saphenous vein graft between the diagonal and circumflex. The lesion stenosis prior to intervention was 90% with MICHAEL 3 flow. Stent Deployment A drug-eluting stent Resolute RX 2.5X12 was inserted and inflated up to 15.00atm for 10seconds. Additional Inflation: 16.00atm for 8seconds. Final angiography reveals 10 % stenosis with MICHAEL 3 flow. PCI Technique Lesion 3 Percutaneous Coronary Intervention was performed on the Unspecified. Stent Deployment A drug-eluting stent Resolute RX 2.5X14 was inserted and inflated up to 14atm for 10seconds. Additional Inflation: 18atm for 10seconds. Post Stent Deployment Balloon Dilation A Balloon catheter NC Trek RX 3.0 X 12 was inserted and inflated up to 17atm for 8seconds. Additional Inflation: 18atm for 10seconds. Additional Inflation: 20atm for 9seconds. PCI Technique Lesion 4 Percutaneous Coronary Intervention was performed on the Unspecified. Conclusion #1 significant coronary artery disease characterized by the following: A 20% proximal LAD narrowing with 80% tubular mid LAD stenosis and evidence of retrograde filling of a patent LYON graft B tandem 75% proximal and 90% heavily calcified mid circumflex stenosis, this being a nondominant vessel, C previously defined nondominant right coronary artery #2 graft study characterized by following: [place] [address] CARDIAC CATH REPORT Name: CRAIG SIMON Room: [address] Ross Begum#: [id number] Admission: 08/07/17 Attend Phys: Helio Malone MD, Discharge: 08/08/17 Date of : 43 Report #: [id number] A widely patent LYON graft to the mid LAD, B patent interposition graft between the diagonal and circumflex with tandem 90 and 80% stenoses, thrombus noted within the proximal lesion #3 successful percutaneous coronary intervention with deployment of sequential drug-eluting stents at the sites of 90% proximal and 80% mid graft stenosis in the interposition graft between the diagonal and circumflex with 10 and 0% residual narrowing following stent deployment and MICHAEL-3 flow the distal vessel Recommendations Cardiac Risk Reduction Program Aggressive Medical Therapy Diagnostic Cath Approved by: Helio Malone MD Date/Time: 08/13/17 at 1122 hrs. <ELECTRONICALLY SIGNED> By: Helio Malone MD, [facility] 08/13/17 1124 1124 [id number] Malone MD, FAC /INF
== END 2017-08-08 11:37 | disposition home or self-care (01) ==
LOC: M.CL 10:30 → M.2W 14:01 → M.TBA-CV 14:01 → M.2W 14:01
PROVIDERS: ADMIT Internal Medicine
DX: I25.110 Atherosclerotic heart disease of native coronary artery with unstable angina pectoris (principal); I11.0 Hypertensive heart disease with heart failure; I50.32 Chronic diastolic (congestive) heart failure; I25.5 Ischemic cardiomyopathy; E78.5 Hyperlipidemia, unspecified; E11.51 Type 2 diabetes mellitus with diabetic peripheral angiopathy without gangrene; J44.9 Chronic obstructive pulmonary disease, unspecified; E66.09 Other obesity due to excess calories; N40.0 Benign prostatic hyperplasia without lower urinary tract symptoms; M19.90 Unspecified osteoarthritis, unspecified site; G47.30 Sleep apnea, unspecified; I25.2 Old myocardial infarction; Z95.5 Presence of coronary angioplasty implant and graft; Z95.1 Presence of aortocoronary bypass graft; Z95.2 Presence of prosthetic heart valve; Z82.49 Family history of ischemic heart disease and other diseases of the circulatory system; Z68.42 Body mass index [BMI] 45.0-49.9, adult

== ENCOUNTER → 2017-11-21 | Outpatient (CLI) | payer MEDICARE, OTHER ==
[~2017-11-21] MED LIST changes: +ALLERGY RELIEF180 MG PO; +AMBIEN 5 MG TABL5 M1 PO; +CARAFATE 1 GM TA1 G1 PO; +COZAAR 25 MG TA25 M2 PO; +DULCOLAX5 MG PO; +ELIQUIS5 MG PO; +FISH OIL 1,001000 M2 PO; +HUMALOG100 UNIT/1 SUBQ; +IPRAT-ALBUT 0.5-3 ML INH; +IPRATROPIU0.2 MG/1 M NASAL; +IRON325 PO; +KEFLEX500 M1 PO; +PREDNISONE 10 M10 MG PO; +PROAIR HFA8.5 GM NASAL; +PROTONIX40 M1 PO; +SPIRONOLACTONE25 M1 PO; +SPIRONOLACTONE25 MG PO; +TOPROL XL25 MG PO; +TUMS PO; +ZANTAC 150MG T150 MG PO
== END ==
LOC: M.WC 07:48
DX: L97.321 Non-pressure chronic ulcer of left ankle limited to breakdown of skin (principal); I87.2 Venous insufficiency (chronic) (peripheral); I10 Essential (primary) hypertension; M19.90 Unspecified osteoarthritis, unspecified site; F41.9 Anxiety disorder, unspecified

== ENCOUNTER → 2017-11-28 | Outpatient (CLI) | payer MEDICARE, OTHER | LOC: M.WC 05:02 | DX: L97.321 Non-pressure chronic ulcer of left ankle limited to breakdown of skin (principal); I87.2 Venous insufficiency (chronic) (peripheral); I10 Essential (primary) hypertension; M19.90 Unspecified osteoarthritis, unspecified site; F41.9 Anxiety disorder, unspecified ==

== ENCOUNTER 2017-12-01 11:20 | Inpatient (IN) | payer MEDICARE, OTHER ==
[~2017-12-01] VITALS: Ht 172.7 cm; Wt 67.8 kg
[~2017-12-01 11:20] MED LIST changes: -ALLERGY RELIEF180 MG PO; -AMBIEN 5 MG TABL5 M1 PO; -CARAFATE 1 GM TA1 G1 PO; -COZAAR 25 MG TA25 M2 PO; -DULCOLAX5 MG PO; -ELIQUIS5 MG PO; -HUMALOG100 UNIT/1 SUBQ; -IPRAT-ALBUT 0.5-3 ML INH; -IPRATROPIU0.2 MG/1 M NASAL; -IRON325 PO; -KEFLEX500 M1 PO; -PREDNISONE 10 M10 MG PO; -PROAIR HFA8.5 GM NASAL; -PROTONIX40 M1 PO; -SPIRONOLACTONE25 M1 PO; -SPIRONOLACTONE25 MG PO; -TOPROL XL25 MG PO; -TUMS PO; -ZANTAC 150MG T150 MG PO
[2017-12-01 12:16] VITALS: BP 139/51
[2017-12-01] MEDS ORDERED: CARAFATE 1 GM TA1 G1 PO (12:16)
[2017-12-01] MEDS ORDERED: IRON325 PO (12:17)
[2017-12-01] MEDS ORDERED: PLAVIX 75 MG TA75 M1 PO (12:18)
[2017-12-01 14:34] VITALS: BP 139/51
--- NOTE | 2017-12-01 14:45 | NUR ---
PT ADMITTED THIS SHIFT, AFTER REVIEW PER CARDIOLOGY PT NOTED TO NOT NEEDED TO BE ADMITTED TILL LATER TIME FOR AGRESTAT BRIDGE PRIOR TO NEOPLASM OF BLADDER SURGERY-OKAY RECIEVED PER TO D/C HOME ON ADMITTED MEDICATIONS- EXACT DATE TO RETURN IS TO BE DETERMINED AND STORE STANDARDS ASSOCIATE WILL CALL PT WITH NOTED TIME ONCE DETERMINED PER CARDIOLOGY AT HOME NUMBER ON FILE- PT AWARE OF PLANS AND OKAY FOR D/C- BELONGINGS PACKED AND ACCOUNTED FOR PER PT AND SENT HOME AT TIME OF D/C- PT ESCORTED PER TECH VIA W/C WITH BELONGINGS TO VEHICLE AT 1450- NO PROBLEMS TO NOTE AT TIME OF D/C
--- NOTE | 2017-12-03 13:30 | CON ---
[address] [address] CONSULTATION Name: ADEBAYODONATOCRAIG Aida Room: [address] IN M.R.#: [id number] Admission: 12/01/17 Attend Phys: Gwendolyn Schroeder MD Discharge: 12/01/17 Date of : 43 Report #: [id number] THIS REPORT FOR: //name// CC: Helio Walton Patient's Chart HISTORY OF PRESENT ILLNESS: The patient is a 72-year-old white male who I was asked to see in the hospital today because of his history of coronary artery disease. The patient has an extensive past medical history. He presented in 2012 with chest pain. He was found to have aortic stenosis and coronary artery disease by Dr. Pina. He was sent to [facility] and underwent aortic valve replacement using a tissue valve and 5-vessel bypass surgery. He has had multiple stents since that time including stents by Dr. Pina, Dr. Mcghee and myself. Most recently, Dr. Malone placed a stent in a portion of the vein graft between the diagonal artery and the circumflex in July of this year. Since that time, he continues to have occasional chest discomfort. It can occur with exertion or at rest. He describes a burning and can make him short of breath. He does take nitroglycerin. It seems to help. He also becomes short of breath with exertion. He has had history of chronic edema. He currently has a sore on his foot and goes to the wound clinic for wrapping of his left leg. He denied any palpitation or syncope. He has a history of hematuria. Recently, he was found to have evidence of a bladder tumor. He was thought to be in need of cystoscopy and possible resection of a bladder tumor. The patient last saw Dr. Malone in the Cardiology Clinic, November 09. Dr. Malone recommended that the patient discontinue his Plavix 3 days prior to admission. He was then to be admitted and placed on Aggrastat for 2 days. The Aggrastat was to be turned off 12 hours before surgery. He was then to have his surgery. Two days after surgery, he was placed back on Aggrastat and Plavix. I was asked to see him for cardiac evaluation. PAST MEDICAL HISTORY: Otherwise significant for bilateral knee surgery, tonsillectomy, hypertension, hyperlipidemia. MEDICATIONS: Consists of the following list: He is on Xanax, aspirin, Lipitor, carvedilol, Plavix, Lasix, Imdur, losartan, ProAir, ranitidine, Ranexa, sucralfate, tramadol. ALLERGIES: He has history of SULFA allergy and he developed a GI bleed on BRILINTA. FAMILY HISTORY: His mother had heart disease. SOCIAL HISTORY: He is . [place] 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 [place] [address] CONSULTATION Name: CRAIG SIMON [address] [id number] Admission: 12/01/17 Attend Phys: Gwnedolyn Schroeder MD Discharge: 12/01/17 Date of : 43 Report #: [id number] REVIEW OF SYSTEMS: He is morbidly obese, standing 5 feet 8 inches, weighing 331 pounds. He has no history of stroke, no history of sleep apnea, no history of liver disease. He does have asthma. He has had a previous GI bleed and apparently he had upper and lower endoscopy, which did not show any obvious source of bleeding. He has had kidney stone in the past. Wears glasses. No psychiatric illness. He has history of bladder cancer. PHYSICAL EXAMINATION: GENERAL: Revealed a large middle-aged male, who appeared in no distress. VITAL SIGNS: He had a blood pressure of 110/50, pulse 66. HEENT: He was anicteric. Conjunctivae pink. Mucous membranes moist. NECK: Veins do not appear distended. Gradient systolic murmur is noted in both carotid arteries. CHEST: Clear to auscultation. CARDIOVASCULAR: Regular rate and rhythm, grade 2 systolic ejection murmur. ABDOMEN: Obese, soft, nontender. EXTREMITIES: Had trace edema. SKIN: Cool and dry. NEUROLOGIC: Nonfocal. IMPRESSION AND RECOMMENDATIONS: 1. Coronary artery disease. Multiple stents. The patient continued to have frequent angina. Plan is to perform repeat cardiac catheterization in the future. 2. Bladder tumor. The patient set up for cystoscopy. I would agree with stopping Plavix for at least 5 days. I would recommend an Aggrastat infusion for only 24 hours since the patient had his drug-eluting stent for more than 3 months. I would reload the patient with Plavix after the surgery. 3. Hypertension. The patient is on a beta car and ARB. 4. Hyperlipidemia. The patient is on a statin drug. 5. Morbid obesity. 6. History of gastrointestinal bleeding. 7. Venous stasis. The patient has an ulcer at this time and is going to the vein clinic. <ELECTRONICALLY SIGNED> By: Juan Denson MD, [facility] 12/03/17 1330 1331 [id number] Denson MD, FACC /nt
== END 2017-12-01 15:00 | disposition home or self-care (01) | DRG 688 ==
LOC: M.2W 11:20 → M.TBA 15:11
PROVIDERS: ADMIT Internal Medicine
DX: D30.3 Benign neoplasm of bladder (principal); I10 Essential (primary) hypertension; I87.8 Other specified disorders of veins; I35.0 Nonrheumatic aortic (valve) stenosis; E66.01 Morbid (severe) obesity due to excess calories; I25.10 Atherosclerotic heart disease of native coronary artery without angina pectoris; E78.5 Hyperlipidemia, unspecified; Z88.2 Allergy status to sulfonamides; Z88.8 Allergy status to other drugs, medicaments and biological substances; Z95.5 Presence of coronary angioplasty implant and graft; Z68.22 Body mass index [BMI] 22.0-22.9, adult; Z95.2 Presence of prosthetic heart valve; Z82.49 Family history of ischemic heart disease and other diseases of the circulatory system; Z79.899 Other long term (current) drug therapy; I83.008 Varicose veins of unspecified lower extremity with ulcer other part of lower leg

== ENCOUNTER → 2017-12-05 | Outpatient (CLI) | payer MEDICARE, OTHER ==
[~2017-12-05] MED LIST changes: +ALLERGY RELIEF180 MG PO; +AMBIEN 5 MG TABL5 M1 PO; +CARAFATE 1 GM TA1 G1 PO; +COZAAR 25 MG TA25 M2 PO; +DULCOLAX5 MG PO; +ELIQUIS5 MG PO; +HUMALOG100 UNIT/1 SUBQ; +IPRAT-ALBUT 0.5-3 ML INH; +IPRATROPIU0.2 MG/1 M NASAL; +IRON325 PO; +KEFLEX500 M1 PO; +PREDNISONE 10 M10 MG PO; +PROAIR HFA8.5 GM NASAL; +PROTONIX40 M1 PO; +SPIRONOLACTONE25 M1 PO; +SPIRONOLACTONE25 MG PO; +TOPROL XL25 MG PO; +TUMS PO; +ZANTAC 150MG T150 MG PO
== END ==
LOC: M.WC 04:43
DX: L97.321 Non-pressure chronic ulcer of left ankle limited to breakdown of skin (principal); I87.2 Venous insufficiency (chronic) (peripheral); I10 Essential (primary) hypertension; M19.90 Unspecified osteoarthritis, unspecified site; F41.9 Anxiety disorder, unspecified

== ENCOUNTER 2017-12-06 07:45 | Inpatient (IN) | payer MEDICARE, OTHER ==
[2017-11-30 15:01] LABS: HEMATOCRIT 35.1 % (42.0-52.0); HEMOGLOBIN 11.6 gm/dL (14.0-18.0); MCH 33.3 pg (26.0-34.0); MCHC 33.1 g/dL (28.0-37.0); MCV 100.4 fL (80.0-100.0); MPV 7.9 fl. (7.2-11.1); NUCLEATED RBCS 0 /100WBC; PLATELET COUNT* 166 thou/uL (150-400); RDW-CV 15.8 % (10.5-14.5); WBC 7.4 thou/uL (4.0-11.0)
[2017-11-30 15:08] LABS: CALCIUM 9.4 mg/dL (8.5-10.1); CREATININE 1.2 mg/dL (0.6-1.3); POTASSIUM 3.6 mmol/L (3.5-5.1)
--- NOTE | 2017-11-30 15:19 | EKG ---
[place] [address] ELECTROCARDIOGRAM REPORT Name: CRAIG SIMON Room: [facility]#: [id number] Admission: Attend Phys: Donn Garcia MD Discharge: Date of : 43 Report #: [id number] THIS REPORT FOR: //name// [facility] Test Date: 2017-11-30 Test Time: 13:56:04 Pat Name: CRAIG SIMON Department: Room: Gender: M Partner Management Consultant: TARA : 1945 Requested By: Donn Garcia Order Number: [id number] Reading MD: Jakub Santos Measurements Intervals [place] Rate: 74 P: -38 [place]: 139 QRS: 67 QRSD: 112 T: 249 QT: 385 QTc: 428 Interpretive Statements Sinus rhythm Incomplete left bundle branch block Compared to ECG 08/08/2017 08:32:48 Left bundle-branch block now present Early repolarization no longer present Electronically Signed On 11-30-2017 15:18:55 CDT by Jakub Santos [email or web address] <ELECTRONICALLY SIGNED> By: Jakub Santos MD, [facility] 11/30/17 1518 1356 1356 Jakub Santos MD, FAC /EPI
[2017-11-30 15:41] LABS: ABSOLUTE BASOPHILS 0.1 thou/uL (0.0-0.2); ABSOLUTE EOSINOPHILS 0.1 thou/uL (0.0-0.7); ABSOLUTE MONOCYTES 1.3 thou/uL (0.0-1.2); ABSOLUTE NEUTROPHILS 4.9 thou/uL (1.6-8.1)
[2017-11-30 15:42] LABS: PLATELET ESTIMATE ADEQUATE
[2017-11-30 15:44] LABS: MACROCYTES Occasional
[~2017-12-06] VITALS: Ht 172.7 cm; Wt 141.1 kg
[~2017-12-06 07:45] MED LIST changes: -ALLERGY RELIEF180 MG PO; -AMBIEN 5 MG TABL5 M1 PO; -COZAAR 25 MG TA25 M2 PO; -DULCOLAX5 MG PO; -ELIQUIS5 MG PO; -HUMALOG100 UNIT/1 SUBQ; -IPRAT-ALBUT 0.5-3 ML INH; -IPRATROPIU0.2 MG/1 M NASAL; -KEFLEX500 M1 PO; -PREDNISONE 10 M10 MG PO; -PROAIR HFA8.5 GM NASAL; -PROTONIX40 M1 PO; -SPIRONOLACTONE25 M1 PO; -SPIRONOLACTONE25 MG PO; -TOPROL XL25 MG PO; -TUMS PO; -ZANTAC 150MG T150 MG PO
[2017-12-06] MEDS ORDERED: FLONASE 0.05%50 MCG NASAL (09:33)
[2017-12-06] MEDS ORDERED: IPRATROPIU0.2 MG/1 M NASAL (09:35)
[2017-12-06] MEDS ORDERED: PROAIR HFA8.5 GM NASAL (09:36)
[2017-12-06 12:05] VITALS: BP 101/46
--- NOTE | 2017-12-06 12:10 | EKG ---
[place] [address] ELECTROCARDIOGRAM REPORT Name: RAMANDEEPJANEYCRAIG L Room: [place] [address] ADM IN .R.#: [id number] Admission: 12/06/17 Attend Phys: Gwendolyn Schroeder MD Discharge: Date of : 43 Report #: [id number] THIS REPORT FOR: //name// [facility] Test Date: 2017-12-06 Test Time: 11:24:23 Pat Name: CRAIG SIMON Department: Room: [place] [address] Gender: M Director Of Outpatient Services: : 1945 Requested By: Satya Arriaga Order Number: [id number] Tip MD: Juan Denson Measurements Intervals [place] Rate: 71 P: 65 [place]: 135 QRS: 81 QRSD: 113 T: 253 QT: 419 QTc: 456 Interpretive Statements Sinus rhythm left ventricular hypertrophy Repol abnrm, severe global ischemia (LM/MVD) Compared to ECG 11/30/2017 13:56:04 no change Electronically Signed On 12-06-2017 12:09:46 CDT by Juan Denson [email or web address] <ELECTRONICALLY SIGNED> By: Juan Denson MD, [facility] 12/06/17 1209 1124 1124 Juan Denson MD, [facility] /EPI
--- NOTE | 2017-12-06 13:53 | NUR ---
DIRECT ADMIT AT 0800. PT A/O X'S 4. TRACING SR. ADMISSION ASSESSMENT COMPLETED. IV PLACED. AGROSTAT INFUSING PER CARDIOLOGY. PT UP AD FREEDOM. MEDICATION RECONCILLIATION COMPLETED. VSS. AFEBRILE.
[2017-12-06 15:55] VITALS: BP 128/54
--- NOTE | 2017-12-06 19:33 | NUR ---
CONSULTED UROLOGY TO GET CONSENT FOR SURGERY TOMORROW 12/07/17. PER UROLOGY OFFICE, CANNOT GIVE ORDER FOR CONSENT UNTIL TOMORROW WHEN DR CALDERON'S PT'S. AGROSTAT STOPPED.
[2017-12-06 20:00] VITALS: BP 107/40
[2017-12-07] VITALS (12 sets, daily range): BP systolic 105–172; BP diastolic 53–117
--- NOTE | 2017-12-07 04:43 | NUR ---
ASSUMED PT CARE AT 1930, PT IS A&OX4, PT IS TRACING NSR ON THE MONITOR, ON RA SATTING MID TO LOW 90'S. PT IS UP AD FREEDOM IN HIS ROOM AND APPEARS TO BE STABLE ON HIS FEET. PT STILL REPORTS BLOOD IN HIS URINE. PT C/O PAIN THROUGHOUT THE SHIFT, PRN PAIN MEDICATIONS GIVEN PER JUN. PT IS NPO FOR PENDING PROCEDURE THIS AM. BED IN LOW POSITION, CALL LIGHT IN REACH. HOURLY ROUNDING COMPLETED FOR PT SAFETY.
--- NOTE | 2017-12-07 07:17 | NUR ---
PT C/O CHEST PRESSURE, PLACED ON O2, DR. MOJICA NOTIFIED. ORDERS GIVEN FOR EKG. PT STATED HE HAS THIS PRESSURE FREQUENTLY AND IS AT A LEVEL OF 2/10. DR. GONZALEZ NOTIFIED AND DR. JOHNSON.
--- NOTE | 2017-12-07 07:30 | NUR ---
PT IS OK'D BY ANEST & CARDIO TO PROCEED WITH SURGERY.
--- NOTE | 2017-12-07 08:50 | NUR ---
RECEIVED REPORT. ASSUMED CARE OF PT. PT IS OFF UNIT IN SURGERY AT THIS TIME.
--- NOTE | 2017-12-07 10:14 | NUR ---
PT BROUGHT BACK TO ROOM FROM SURGER. VSS. CARDIAC MONTIORING PLACED. PT ALERT AND OREINTED BUT DROWSY. PT ON 4L PER NC WITH CAPNO IN PLACE O2 SAT 96%. CBI URINE LIGHT YELLOW IN COLOR AT THIS TIME. PT IN NO PAIN. SCD IN PLACE TO RIGHT LE. IV SALINE LOCKED. PT'S FAMILY AT BEDSIDE. PT AND FAMILY INFORMED OF PLAN OF CARE. CALL LIGHT IS WITHIN REACH. WILL CONTINUE TO MONTIOR.
--- NOTE | 2017-12-07 11:06 | EKG ---
[place] [address] ELECTROCARDIOGRAM REPORT Name: CRAIG SIMON Room: [place] [address] ADM IN .R.#: [id number] Admission: 12/06/17 Attend Phys: Gwendolyn Schroeder MD Discharge: Date of : 43 Report #: [id number] THIS REPORT FOR: //name// [facility] Test Date: 2017-12-07 Test Time: 07:11:45 Pat Name: CRAIG SIMON Department: Room: [place] [address] Gender: M Resource Manager: : 1945 Requested By: Solomon Elam Order Number: [id number] Tip MD: Juan Denson Measurements Intervals [place] Rate: 80 P: 65 NM: 209 QRS: 73 QRSD: 113 T: 245 QT: 414 QTc: 478 Interpretive Statements Sinus rhythm nonspecific intraventricular conduction defect ST depression, consider ischemia, lateral lds Borderline prolonged QT interval Compared to ECG 12/06/2017 11:24:23 Left ventricular hypertrophy no longer present Possible ischemia still present Electronically Signed On 12-07-2017 11:06:37 CDT by Juna Denson [email or web address] <ELECTRONICALLY SIGNED> By: Juan Denson MD, [facility] 12/07/17 1106 0711 0711 Juan Denson MD, [facility] /EPI
--- NOTE | 2017-12-07 11:56 | NUR ---
DR. SHETH NOTIFIED OF PT'S SOA, RESPIRATIONS 20'S-30'S AND ON 4L OF O2. NOTED THAT LASIX HAD NOT BEEN RE-ORDERED AT THIS TIME. WILL CONTINUE TO MONITOR.
--- NOTE | 2017-12-07 12:29 | NUR ---
MET WITH PT TO DISCUSS HOME SITUATION/DC PLANNING. PT LIVES WITH AND IS NORMALLY INDEPENDENT AND ACTIVE. USES CANE WHEN HE NEEDS IT, DRIVES AND DOES OWN ADLS. IS DPOA. PT HAS BEEN TO CARDIAC REHAB IN PAST. PLANS TO RETURN HOME AT DC. WILL FOLLOW
--- NOTE | 2017-12-07 17:14 | NUR ---
VSS. PT PARTIALLY PROGRESSING TOWARDS. PT GIVEN ONETIME DOSE OF LASIX WITH IMPROVEMENT IN BREATHING. CBI INFUSING WITH URINE COLOR LIGHT YELLOW-VERY LIGHT PINK. PT REMAINS ON 3L PER NC AND CPNO. IV SALINE LOCKED. SCD'S IN PLACE. PT'S BLACK EMPTIED EVERY 30-40 MINUTES WITH CBI. PT ENCOURAGED TO USE INCENTIVE SPIROMETER. PT DOES REPORT OCCASIONAL DISCOMFORT IN BLADDER. CALL LIGHT IS WITHIN REACH. WILL CONTINUE TO MONTIOR FOR DURATION OF SHIFT.
--- NOTE | 2017-12-07 17:59 | NUR ---
PT HAD COMPLAINT OF CHEST PAIN FOLLOWED BY EMESIS. EMESIS APPEARED TO BE RED IN COLOR. HOWEVER PT DID REPORT JUST HAVING GRAPE JUICE. DR. AGUILAR ON UNIT AND NOTIFIED AND IN ROOM TO SEE PT. ZOFRAN GIVEN WITH LITTLE RELIEF. EMESIS SENT TO LAB FOR HEMOCULT TESTING. PROTONIX GTT ORDERED, GI CONSULT IF HEMOCULT POSITIVE. HS NOTIFIED OF PT STATUS. PT CONTINUES TO HAVE COMPLAINTS OF PAIN IN CHEST. 1 NITRO GIV[address] WITHOUT RELIEF. [address] AGUILAR AWARE. WILL CONTINUE TO MONTIOR CLOSELY.
--- NOTE | 2017-12-07 19:00 | NUR ---
PT HAS HAD CONTINUED VOMITTING WITH RED COLORED EMESIS. PT CONTINUES TO HAVE COMPLAINTS OF PAIN IN CHEST. GI COCKTAIL GIVEN. PROTONIX GTT STARTED. EKG OBTAINED FOR CONTINUED COMPLAITNS OF CP AND PLACED ON CHART. CALLING LAB TO DETERMINE STATUS OF HEMMOCULT.
[2017-12-07 19:33] LABS: HEMOGLOBIN 13.1 gm/dL (14.0-18.0); MCHC 32.7 g/dL (28.0-37.0); MPV 7.5 fl. (7.2-11.1); RBC 3.96 mil/uL (4.50-6.00); RDW-CV 15.5 % (10.5-14.5); WBC 11.8 thou/uL (4.0-11.0)
[2017-12-07 19:39] LABS: APTT 27.3 Seconds (25.0-31.3); INR 1.1
[2017-12-07 20:41] LABS: BE -4.4 mmol/L (-2 to +3); HCO3 21.1 mmol/L (22.0-26.0); PCO2 40.4 mmHg (35.0-45.0); pH 7.336 (7.340-7.450)
[2017-12-07 20:44] LABS: PO2 212.7 mmHg (75.0-100.0)
[2017-12-07 21:17] LABS: HEMATOCRIT 40.3 % (42.0-52.0); MCH 32.8 pg (26.0-34.0); MCHC 32.4 g/dL (28.0-37.0); MCV 101.3 fL (80.0-100.0); MPV 7.5 fl. (7.2-11.1); RBC 3.98 mil/uL (4.50-6.00); RDW-CV 15.6 % (10.5-14.5); WBC 13.5 thou/uL (4.0-11.0)
[2017-12-07 21:38] LABS: CREATININE 1.4 mg/dL (0.6-1.3); POTASSIUM 3.9 mmol/L (3.5-5.1)
[2017-12-07 21:45] LABS: ALBUMIN 3.9 g/dL (3.4-5.0); TOTAL BILIRUBIN 0.9 mg/dL (<0.1-1.0); TOTAL PROTEIN 7.6 g/dL (6.4-8.2)
--- NOTE | 2017-12-07 23:22 | NUR ---
LASIX 80MG IVP GIVEN PER DR DAY. BIPAP PLACED AT THIS TIME DUE TO INCREASED WORK OF BREATHING, O2 SAT 93% ON NRB.
[2017-12-08] VITALS (61 sets, daily range): BP systolic 43–132; BP diastolic 21–77
--- NOTE | 2017-12-08 01:08 | NUR ---
SPOKE TO DR DAY AT 2340 TO UPDATE ON PT'S WORK OF BREATHING. RECIEVED ORDERS TO CONTACT ED AND INTUBATE PT. DR CORNELL NOTIFIED, PT INTUBATED AT 9038 WITH 7.5 ET TUBE. OG TUBE PLACED TO DECOMPRESS STOMACH WHILE ON VENTILATOR. CENTRAL LINE PLACED PER DR CORNELL. STAT PCXR AND KUB DONE TO VERIFY PLACEMENT OF OG, ET TUBE AND CENTRAL LINE. PLACEMENT CONFIRMED BY DR CORNELL. VERSED AND FENTANYL DRIP STARTED FOR SEDATION. PT'S DAUGHTER PRESENT AND EDUCATED REGARDING NEED FOR INTUBATION, CENTRAL LINE AND OG PLACEMENT. BILATERAL SOFT WRIST RESTRAINTS IN PLACE TO MAINTAIN ET TUBE, CENTRAL LINE, OG AND BLACK CATHETER.
--- NOTE | 2017-12-08 01:27 | NUR ---
PT TRANSFERED TO ICU ROOM 6 AT 2015 FOR HIGHER LEVEL OF CARE RELATED TO RESPIRATORY DISTRESS. PT ALERT AND ORIENTED X4 WITH HIGH ANXIETY DUE TO WORK OF BREATHING. PT ON 50% VENTIMASK UPON ARRIVAL, 100% NON REBREATHER THEN EVENTUALY BIPAP. PT TAKEN FOR CTA TO RULE OUT PE AT 2146. PT RETURNED TO ICU AT 2217. STAFF AND RT MADE MULTIPLE ATTEMPTS TO HELP PT REPOSITION TO AID WORK OF BREATHING WITHOUT SUCCESS. PT GIVEN PRN XANAX WITH NO RELIEF. PT'S RESPIRATIONS > 50. PAGED DR DAY AND REPORTED HEART RATE, RESPIRATORY RATE AND ANXIETY. RECIEVED MULTIPLE ORDERS INCLUDING INTUBATION. PT INFORMED AND CONSENTED TO INTUBATION. DR CORNELL INTUBATED PT AT 2358 WITH 7.5 ET TUBE. OG INSERTED PER VENTILATOR PROTOCOL. DR CORNELL PLAVED LEFT SUBCLAVIAN TRIPLE LUMEN CATHETER. STAT XRAYS OBTAINED TO CONFIRM PLACEMENT. ET TUBE, OG AND CENTRAL LINE CONFIRMED AND OK TO USE PER DR CORNELL. FENTANYL AND VERSED DRIP OBTAINED AND STARTED FOR SEDATION. BILATERAL SOFT WRIST RESTRAINTS IN PLACE TO MAINTAIN ET TUBE, CENTRAL LINE, OG AND BLACK CATHETER WHILE PT INTUBATED AND SEDATED ON VENTILATOR. PT'S DAUGHTER LEFT FOR HOME AFTER INTUBATION. PT'S HEART RATE 80, RESPIRATIONS 16-18, O2 SAT 98-99%, BLOOD PRESSURE 108/77. NO SIGNS OR SYMPTOMS OF RESPIRATORY DISTRESS NOTED AT THIS TIME.
--- NOTE | 2017-12-08 02:46 | NUR ---
STARTING LEVOPHED TO MAINTAIN MAP > 65.
--- NOTE | 2017-12-08 04:11 | NUR ---
CXR REPORT SHOWING LEFT SUBCLAVIAN TIP WITHIN LEFT JUGULAR, RADIOLOGIST RECOMMENDED TO REPOSITION AND RECHECK. DR CORNELL FELT CATHETER WAS COILED WITHIN THE VEIN. SUBSEQUENTLY A RIGHT SUBCLAVIAN CENTRAL WAS PLACED TO REPLACE MALPOSITIONED LINE, PLACEMENT CONFIRMED VIA XRAY AND OK TO USE PER DR CORNELL. SPOKE WITH DR DAY AT THIS TIME, ORDER TO START CVP.
[2017-12-08 05:05] LABS: HEMATOCRIT 35.8 % (42.0-52.0); HEMOGLOBIN 11.7 gm/dL (14.0-18.0); MCH 33.3 pg (26.0-34.0); MCHC 32.7 g/dL (28.0-37.0); MCV 101.9 fL (80.0-100.0); MPV 7.6 fl. (7.2-11.1); NUCLEATED RBCS 0 /100WBC; PLATELET COUNT* 179 thou/uL (150-400); RBC 3.52 mil/uL (4.50-6.00); RDW-CV 15.9 % (10.5-14.5); WBC 14.7 thou/uL (4.0-11.0)
[2017-12-08 05:14] LABS: CALCIUM 8.3 mg/dL (8.5-10.1); CREATININE 2.2 mg/dL (0.6-1.3); POTASSIUM 4.5 mmol/L (3.5-5.1)
[2017-12-08 06:35] LABS: ABSOLUTE LYMPHOCYTES 1.3 thou/uL (0.8-5.3); ABSOLUTE NEUTROPHILS 13.4 thou/uL (1.6-8.1); ATYPICAL LYMPHS 4 %; METAMYELOCYTES 1 %; PLATELET ESTIMATE ADEQUATE
--- NOTE | 2017-12-08 08:20 | NUR ---
CBI DISCONTINUED BY UROLOGY AT BEDSIDE.
--- NOTE | 2017-12-08 08:28 | NUR ---
PT HAS LEFT LOWER EXTEMITY WITH STOCKING OVER IT. WILL KEEP SCD OF THIS LEG AND DISCUSS WITH ATTENDING.
--- NOTE | 2017-12-08 10:27 | NUR ---
WOUND CARE NOTE: ASSESSMENT FOR WOUND TO LEFT LEG. PATIENT IS SEEN BY THE WOUND CENTER, COME TO ASSESS LEFT LEG. TWO LAYER WRAP IN PLACE. REMOVED. APPEARS THAT THERE WAS A MEDIAL LOWER LEG WOUND. NOW THERE IS A STABLE SCAB IN PLACE. ROSAURA-WOUND WITH NEW EPITHELIUM. APPLIED OPTIFOAM AG TO AREA FOR PROTECTION. THEN APPLIED DOUBLE LAYER TUBIGRIP SIZE F. RECOMMEND REMOVE AND REPLACE TUBIGRIP DAILY FOR SKIN CHECKS ELEVATE BLE ENCOURAGE GOOD NUTRITION/HYDRATION ONCE ABLE
--- NOTE | 2017-12-08 11:07 | EKG ---
[place] [address] ELECTROCARDIOGRAM REPORT Name: CRAIG SIMON Room: [address] ADM IN M.R.#: [id number] Admission: 12/06/17 Attend Phys: Gwendolyn Schroeder MD Discharge: Date of : 43 Report #: [id number] THIS REPORT FOR: //name// [facility] Test Date: 2017-12-07 Test Time: 18:52:14 Pat Name: CRAIG SIMON Department: Room: [facility] Gender: M Transitional Nurse: : 1945 Requested By: Solomon Schaffer Order Number: [id number] Tip MD: Juan Denson Measurements Intervals [place] Rate: 100 P: 105 [place]: 203 QRS: 61 QRSD: 112 T: 250 QT: 332 QTc: 429 Interpretive Statements Sinus tachycardia Probable LVH with secondary repol abnrm ST depression, consider ischemia, diffuse lds Compared to ECG 12/07/2017 07:11:45 Sinus rhythm no longer present ST (T wave) deviation still present Possible ischemia still present Electronically Signed On 12-08-2017 11:06:59 CDT by Juan Denson [email or web address] <ELECTRONICALLY SIGNED> By: Juan Denson MD, [facility] 12/08/17 1106 1852 1852 Juan Denson MD, [facility] /EPI
[2017-12-08 11:43] LABS: BE -3.7 mmol/L (-2 to +3); HCO3 21.7 mmol/L (22.0-26.0); PCO2 40.4 mmHg (35.0-45.0); PO2 64.7 mmHg (75.0-100.0); pH 7.348 (7.340-7.450)
[2017-12-08 12:24] LABS: HEMOGLOBIN 12.2 gm/dL (14.0-18.0)
[2017-12-08 12:28] LABS: CALCIUM 6.9 mg/dL (8.5-10.1); POTASSIUM 4.3 mmol/L (3.5-5.1)
--- NOTE | 2017-12-08 13:05 | 2DMMODE ---
[place] [address] 2 D/M-MODE ECHOCARDIOGRAM Name: CRAIG SIMON Room: [address] IN [facility]#: [id number] Admission: 12/06/17 Attend Phys: Gwendolyn Schroeder, Discharge: Date of : 43 Date of Service: 12/08/17 1304 Report #: [id number] THIS REPORT FOR: //name// APPROVED REPORT Study performed: 12/08/2017 10:39:42 EXAM: Limited 2D Echocardiogram with contrast Patient Location: In-Patient Room #: 006 Status: routine BSA: 2.52 HR: 72 bpm BP: 75/30 mmHg Rhythm: NSR Other Information Technically limited study due to body habitus, poor endocardial definition. Indications Hypotension Dyspnea Limited echo to evaluate ejection fraction Echo Enhancing Agent Indication: Endocardial border delineation Agent(s) / Amount(s) Used: Optison 3 cc Left Ventricle Left ventricle is mildly dilated. severe hypokinesis noted of the lateral wall Mild concentric left ventricular hypertrophy. Left ventricular systolic function is severely decreased. LVEF is 25-30%.. Right Ventricle mildly dilated Right ventricle is mildly hypokinetic. Atria Left atrium is mildly dilated. The right atrium size is normal. Aortic Valve Prosthetic aortic valve is noted. Mitral Valve [address] [address] [place] [address] 2 D/M-MODE ECHOCARDIOGRAM Name: CRAIG SIMON Room: [address] ADM IN M.R.#: [id number] Admission: 12/06/17 Attend Phys: Gwendolyn Schroeder, Discharge: Date of : 43 Date of Service: 12/08/17 1304 Report #: [id number] There is mitral annular calcification. Tricuspid Valve The tricuspid valve is not well visualized. Pulmonic Valve Pulmonic valve is not visualized. Pericardium There is no pericardial effusion. <Conclusion> LVEF is 25-30%.. Left atrium is mildly dilated. Prosthetic aortic valve is noted. <ELECTRONICALLY SIGNED> By: Juan Denson MD, FACC 12/08/17 1304 1304 03 Juan Denson MD, FACC /INF
--- NOTE | 2017-12-08 13:26 | NUR ---
PT HAD EPISODE OF LOW BP. DR. LEON ASSESSED PT WITH ME AT BEDSIDE. ARTERIAL LINE STARTED, ALBUMIN GIVEN, DOPAMINE ADDED PRESSER. PT NOW NORMOTENISIVE. WILL CONTINUE TO ASSESS.
--- NOTE | 2017-12-08 15:18 | EKG ---
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 : 1945 Requested By: Jocelynn Case Order Number: [id number] Reading MD: Juan Denson Measurements Intervals [place] Rate: 91 P: 0 [place]: 134 QRS: 47 QRSD: 117 T: 217 QT: 377 QTc: 464 Interpretive Statements Sinus rhythm Nonspecific intraventricular conduction delay Repol abnrm, severe global ischemia (LM/MVD) Compared to ECG 12/07/2017 18:52:14 Sinus tachycardia no longer present Possible ischemia still present Electronically Signed On 12-08-2017 15:18:10 CDT by Juan Denson [email or web address] <ELECTRONICALLY SIGNED> By: Juan Denson MD, [facility] 12/08/17 1518 1209 1209 Juan Denson MD, [facility] /EPI
[2017-12-08 15:36] LABS: BE -3.4 mmol/L (-2 to +3); HCO3 22.1 mmol/L (22.0-26.0); PCO2 41.6 mmHg (35.0-45.0); pH 7.343 (7.340-7.450)
[2017-12-08 15:38] LABS: PO2 132.9 mmHg (75.0-100.0)
--- NOTE | 2017-12-08 16:17 | NUR ---
ATERIAL PRESSURE FOR THE LAST 4 HOUR HAS SYSTOLICLY RONAK IN THE 120 -130 AND DIALSTOLICLY 50-60. WILL CONTINUE TO ASSESS.
--- NOTE | 2017-12-08 17:19 | NUR ---
DR. LEON INSTRUCT TO TITRATE FIO2 TO KEEP OXYGEN SATURATION AT 93% OR GREATER. WILL PASS ONTO RN.
[2017-12-08 18:26] LABS: HCO3 19.4 mmol/L (22.0-26.0); PCO2 30.6 mmHg (35.0-45.0); pH 7.421 (7.340-7.450)
[2017-12-08 18:39] LABS: CALCIUM 8.6 mg/dL (8.5-10.1); CREATININE 2.3 mg/dL (0.6-1.3); POTASSIUM 4.6 mmol/L (3.5-5.1)
--- NOTE | 2017-12-08 21:47 | NUR ---
INITAL ASSESMENT COMPLETED AT 1930. PT INTUBATED AND SEDATED ON VENTILATOR. PT RESTLESS, PULLING AT RESTRAINTS. CALLED DR OROPEZA AND RECIEVED ORDERS FOR INCREASED SEDATION. PT'S DAUGHTER CALLED, UPDATE GIVEN. VITAL SIGNS WITHIN NORMAL LIMITS AT THIS TIME, WILL CONTINUE TO MONITOR CLOSELY.
[2017-12-09] VITALS (29 sets, daily range): BP systolic 94–136; BP diastolic 6–78
[2017-12-09 04:04] LABS: HEMATOCRIT 35.9 % (42.0-52.0); HEMOGLOBIN 11.6 gm/dL (14.0-18.0); MCH 32.9 pg (26.0-34.0); MCHC 32.4 g/dL (28.0-37.0); MCV 101.5 fL (80.0-100.0); MPV 7.7 fl. (7.2-11.1); RBC 3.54 mil/uL (4.50-6.00); RDW-CV 15.8 % (10.5-14.5); WBC 12.7 thou/uL (4.0-11.0)
[2017-12-09 04:29] LABS: ALBUMIN 3.7 g/dL (3.4-5.0); CALCIUM 8.1 mg/dL (8.5-10.1); CREATININE 2.2 mg/dL (0.6-1.3); POTASSIUM 4.5 mmol/L (3.5-5.1); TOTAL BILIRUBIN 0.8 mg/dL (<0.1-1.0); TOTAL PROTEIN 7.5 g/dL (6.4-8.2)
[2017-12-09 06:09] LABS: HCO3 22.7 mmol/L (22.0-26.0); PCO2 42.7 mmHg (35.0-45.0); PO2 85.3 mmHg (75.0-100.0); pH 7.343 (7.340-7.450)
--- NOTE | 2017-12-09 10:56 | NUR ---
SEDATION VACATION FROM 0820 TO 0849. PT HR INCREASED TO 138 AND SEDATION TURNED BACK ON. PULMONARY NOTIFIED. STARTED FENTANYL AT 50 MCG AND VERSED AT 2 MG. TITRATED UP TO FENTANYL 100 AND VERSED 5 PT WAS NOT SEDATED. PER PULMONARY FENTANYL TITRATED DOWN TO 50 MCG/ HOUR. WILL CONTINUE TO MONITOR.
--- NOTE | 2017-12-09 12:08 | EKG ---
[place] [address] ELECTROCARDIOGRAM REPORT Name: CRAIG SIMON Room: [address] ADM IN M.R.#: [id number] Admission: 12/06/17 Attend Phys: Gwendolyn Schroeder MD Discharge: Date of : 43 Report #: [id number] THIS REPORT FOR: //name// [facility] Test Date: 2017-12-09 Test Time: 09:17:29 Pat Name: CRAIG SIMON Department: Room: [address] Gender: M Premium Auditor: : 1945 Requested By: Jocelynn Case Order Number: [id number] Reading MD: Jakub Santos Measurements Intervals [place] Rate: 99 P: -19 DC: 124 QRS: 41 QRSD: 112 T: 224 QT: 366 QTc: 470 Interpretive Statements Sinus rhythm Borderline intraventricular conduction delay Repol abnrm, severe global ischemia (LM/MVD) Baseline wander in lead(s) V2 Compared to ECG 12/08/2017 12:09:50 No significant changes Electronically Signed On 12-09-2017 12:07:56 CDT by Jakub Santos [email or web address] <ELECTRONICALLY SIGNED> By: Jakub Santos MD, [facility] 12/09/17 1207 6 6 Jakub Santos MD, [facility] /EPI
[2017-12-09 14:00] LABS: HEMATOCRIT 34.2 % (42.0-52.0); HEMOGLOBIN 11.2 gm/dL (14.0-18.0)
--- NOTE | 2017-12-09 15:07 | NUR ---
DOPAMINE DC'D PER CARDIOLOGY. CARDIOLOGY CHANGED PLAVIX LOADING DOSE TO 300 MG. BP'S MAINTAINING. NO PRESSOR SUPPORT. TUBE FEEDINGS AND BOLUS FLUSHES STARTED. 5 ML RESIDUAL. TEA COLORED URINE. UROLOGY AWARE. TEMP OF 99.3. FAN, ICE PACKS AND COOL WASH CLOTH APPLIED. REASSESSMENT 98.9.
[2017-12-09 15:32] LABS: BE -3.5 mmol/L (-2 to +3); HCO3 21.5 mmol/L (22.0-26.0); PCO2 38.6 mmHg (35.0-45.0); pH 7.364 (7.340-7.450)
[2017-12-09 17:55] LABS: CALCIUM 7.5 mg/dL (8.5-10.1); POTASSIUM 4.5 mmol/L (3.5-5.1)
[2017-12-10] VITALS (14 sets, daily range): BP systolic 96–133; BP diastolic 46–81
[2017-12-10 04:03] LABS: ABSOLUTE LYMPHOCYTES 0.4 thou/uL (0.8-5.3); ABSOLUTE MONOCYTES 1.6 thou/uL (0.0-1.2); ABSOLUTE NEUTROPHILS 13.6 thou/uL (1.6-8.1); BASOPHILS 0.1 %; EOSINOPHILS 0.1 %; HEMATOCRIT 36.8 % (42.0-52.0); HEMOGLOBIN 11.8 gm/dL (14.0-18.0); LYMPHOCYTES 2.4 %; MCH 32.7 pg (26.0-34.0); MCHC 31.9 g/dL (28.0-37.0); MCV 102.4 fL (80.0-100.0); MONOCYTES 10.5 %; MPV 7.9 fl. (7.2-11.1); NUCLEATED RBCS 0 /100WBC; PLATELET COUNT* 183 thou/uL (150-400); POLYS 86.9 %; RBC 3.59 mil/uL (4.50-6.00); RDW-CV 15.4 % (10.5-14.5); WBC 15.6 thou/uL (4.0-11.0)
[2017-12-10 04:13] LABS: ALBUMIN 3.7 g/dL (3.4-5.0); POTASSIUM 5.1 mmol/L (3.5-5.1); TOTAL BILIRUBIN 0.7 mg/dL (<0.1-1.0); TOTAL PROTEIN 7.6 g/dL (6.4-8.2)
[2017-12-10 04:41] LABS: CALCIUM 7.9 mg/dL (8.5-10.1)
--- NOTE | 2017-12-10 06:02 | NUR ---
PT SLOWLY PROGRESSING TOWARD GOALS. PT CONTINUED ON VENTILATOR WITH VERSED AND FENTANYL FOR SEDATION. PT AROUSABLE AND FOLLOWS COMMANDS. VITAL SIGNS WITHIN NORMAL LIMITS, WILL CONTINUE TO MONITOR.
[2017-12-10 08:31] LABS: BE -5.4 mmol/L (-2 to +3); HCO3 21.8 mmol/L (22.0-26.0); PCO2 49.2 mmHg (35.0-45.0)
[2017-12-10 08:34] LABS: PO2 135.1 mmHg (75.0-100.0); pH 7.264 (7.340-7.450)
[2017-12-10 12:18] LABS: BE -4.1 mmol/L (-2 to +3); HCO3 20.5 mmol/L (22.0-26.0); PCO2 35.9 mmHg (35.0-45.0); PO2 140.5 mmHg (75.0-100.0); pH 7.374 (7.340-7.450)
--- NOTE | 2017-12-10 15:14 | OP ---
[facility] [address] [place] [address] OPERATIVE REPORT Name: RAMANDEEPJANEYCRAIG L Room: [address] IN M.R.#: [id number] Admission: 12/06/17 Attend Phys: Gwendolyn Schroeder MD Discharge: Date of : 43 Report #: [id number] THIS REPORT FOR: //name// CC: Helio Garcia DATE OF SERVICE: 12/07/2017 PREOPERATIVE DIAGNOSES: 1. Gross hematuria. 2. Bladder tumor. POSTOPERATIVE DIAGNOSES: 1. Gross hematuria. 2. Bladder tumor. PROCEDURES PERFORMED: 1. Cystoscopy with clot evacuation. 2. Transurethral resection of bladder tumor (medium). SURGEON: Donn Garcia M.D. ANESTHESIA: General endotracheal. BRIEF HISTORY: The patient is a 72-year-old male who developed gross hematuria. Subsequent workup including office cystoscopy revealed a pedunculated bladder tumor at the bladder base in the midline as well as several smaller satellite tumors. The patient presents today for cystoscopy with transurethral resection of his bladder tumor. The risks of the procedure including the risks of bleeding, infection, damage to surrounding structures, bladder perforation necessitating prolonged catheter drainage or open repair, need for additional procedures including repeat resections and anesthetic risks were discussed with the patient and he wished to proceed. Of note, cardiac clearance was obtained preoperatively. DESCRIPTION OF PROCEDURE: The risks and benefits of surgery were discussed with the patient and he wished to proceed. Informed consent was obtained and the patient was transferred to the operating room, where he was laid supine on the operating room table. After the induction of adequate general endotracheal anesthesia and the administration of appropriate preoperative antibiotics, the patient's legs were placed in a modified dorsal lithotomy position, taking care to pad all pressure points and avoid any hyperextension or hyperflexion of his joints. The patient's genitalia were prepped and draped in the usual sterile fashion. A timeout was then performed to ensure [place] [address] OPERATIVE REPORT Name: CRAIG SIMON Room: [address] IN ..#: [id number] Admission: 12/06/17 Attend Phys: Gwendolyn Schroeder MD Discharge: Date of : 43 Report #: [id number] At this time, a 22-Romanian cystoscope sheath with a 30-degree lens was lubricated and advanced under direct vision and irrigation into the anterior urethra. There were no anterior urethral abnormalities identified. As the prostatic urethra was approached, it was noted to be patent and without lesion. The cystoscope was advanced into the bladder, where immediately there was encountered a small amount of intravesical clot. Some of the clot was able to be evacuated out through the cystoscope sheath; however, there was just enough clot that could not all be evacuated. Given the above, the cystoscope was removed and the patient's urethra was dilated from 20-Romanian to 26-Romanian with Alfredo sounds. A 24-Romanian resectoscope sheath with obturator was then lubricated and advanced into the bladder without difficulty. The obturator was removed and was replaced with a resectoscope. Some of the clot was able to be manually removed utilizing the resectoscope loop through the sheath; however, the majority of the clot necessitated irrigation with a piston syringe in order to clear the bladder. Once the clot had been evacuated, cystoscopy was more adequately able to be performed. Once again, there was noted to be a pedunculated tumor at the base of the bladder in the midline. There were several smaller satellite tumors in the area as well as some surface irregularity that progressed up the left lateral wall. The patient's ureteral orifices were identified and were well away from the area of irregularity. There was clear urine efflux observed bilaterally. At this time, transurethral resection of the patient's midline tumor at the base of the bladder was undertaken. The tumor was able to be resected followed by the surrounding areas including several smaller satellite tumors. Resection was taken down until muscular fibers were observed. Tumor chips generated during the procedure were periodically evacuated out through the resectoscope sheath. Hemostasis was obtained with the electrosurgical loop. There was some flat, low-lying surface irregularity, which progressed up the left lateral wall, which was fulgurated using the resection loop. After all visible tumor had been resected and the irregularity of the left lateral wall fulgurated, cystoscopy was able to be performed much more adequately. There did not appear to be any additional tumors, but in order to be sure, the resectoscope was removed and cystoscope was reinserted. Cystoscopy was repeated with both a 30-degree and 70-degree lens. Once again, the patient's ureteral orifices were noted to be in their normal anatomic location with clear urine efflux. Neither had been disturbed by the resection. Systematic panendoscopy revealed no additional bladder wall tumors or surface irregularities, other than that which had been previously addressed. The cystoscope was disarticulated and the bladder was drained. Cystoscopy was repeated with the bladder minimally distended and hemostasis was noted to be excellent. There were no additional tumor chips in the bladder. All had been evacuated out and therefore, passed off the table for pathologic analysis. The cystoscope was removed and a 22-Romanian 3-way Bess catheter was lubricated and advanced into the bladder without difficulty. The catheter balloon was inflated with 20 mL of sterile water and continuous bladder irrigation was established. The efflux was clear. The patient was returned to [address] [address] OPERATIVE REPORT Name: RAMANDEEPJANEYCRAIG L Room: [address]#: [id number] Admission: 12/06/17 Attend Phys: Gwendolyn Schroeder MD Discharge: Date of : 43 Report #: [id number] a supine position, awakened from anesthesia and transferred to the Postoperative Care Unit in stable condition. The patient tolerated the procedure well. COMPLICATIONS: None. ESTIMATED BLOOD LOSS: Minimal. INTRAVENOUS FLUIDS: Crystalloid. DRAINS: A 22-Romanian 3-way Bess catheter with continuous bladder irrigation. SPECIMENS: Bladder tumor chips. FINDINGS: 1. Normal anterior urethra. 2. Patent prostatic urethra, without visible lesion. 3. Small amount of intravesical clot, evacuated. 4. 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 <ELECTRONICALLY SIGNED> By: Donn Garcia MD 12/10/17 1514 0859 [id number] Garcia MD /nt
--- NOTE | 2017-12-10 17:07 | NUR ---
PATIENT PROGRESSING TOWARDS GOALS. PATIENT TOLERATED SEDATION VACATION FOR 2 HOURS BEFORE BECOMING TACHYCARDIC AND TACYPNEIC. PATIENT ABLE TO OPEN EYES, BUT DID NOT FOLLOW COMMANDS PRIOR TO TURNING SEDATION BACK ON. PRECEDEX AT 0.6 MCG/KG/HR WHICH IS 29.1 ML/HR AT THIS TIME. VITALS STABLE. LOW GRADE FEVERS NOTED. CONTINUING 100 ML FLUID BOLUSES Q4H PER OG TUBE WITH TUBE FEEDINGS AT PRESCRIBED RATE. COMPLETE BED BATH GIVEN. BILATERAL SOFT WRIST RESTRAINTS REMAIN IN PLACE. TRACING SINUS RHYTHM ON HOME CARE CONSULTANT. FAMILY PRESENT THROUGHOUT SHIFT, UPDATED BY ALL SPECIALTIES. DENIES FURTHER QUESTIONS ABOUT PLAN OF CARE AT THIS TIME.
--- NOTE | 2017-12-10 20:57 | NUR ---
RECIEVED REPORT AND ASSUMED CARE OF PT AT 1900. PT INTUBATED AND SEDATED ON VENTILATOR WITH PRESEDEX DRIP FOR SEDATION. SINUS RHYTHM ON MONITOR, HEART RATE AND BLOOD PRESSURE WITHIN NORMAL LIMITS. HS MEDS ADMINISTERED PER EMAR. ORAL CARE AND REPOSITIONING DONE. NO SIGNS OR SYMPTOMS OF PAIN OR DISCOMFORT NOTED. WILL CONTINUE TO MONITOR.
[2017-12-11 05:09] LABS: HEMATOCRIT 36.5 % (42.0-52.0); HEMOGLOBIN 11.9 gm/dL (14.0-18.0); MCH 32.9 pg (26.0-34.0); MCHC 32.5 g/dL (28.0-37.0); MCV 101.2 fL (80.0-100.0); MPV 8.5 fl. (7.2-11.1); NUCLEATED RBCS 1 /100WBC; PLATELET COUNT* 162 thou/uL (150-400); RBC 3.61 mil/uL (4.50-6.00); RDW-CV 15.2 % (10.5-14.5)
[2017-12-11 05:29] LABS: ALBUMIN 2.9 g/dL (3.4-5.0); CALCIUM 7.4 mg/dL (8.5-10.1); CREATININE 2.6 mg/dL (0.6-1.3); MAGNESIUM 3.1 mg/dL (1.8-2.4); POTASSIUM 5.2 mmol/L (3.5-5.1); TOTAL BILIRUBIN 0.9 mg/dL (<0.1-1.0); TOTAL PROTEIN 6.6 g/dL (6.4-8.2)
[2017-12-11 06:28] LABS: ABSOLUTE LYMPHOCYTES 0.3 thou/uL (0.8-5.3); ABSOLUTE MONOCYTES 0.9 thou/uL (0.0-1.2); ABSOLUTE NEUTROPHILS 7.8 thou/uL (1.6-8.1)
[2017-12-11 06:29] LABS: LARGE PLATELETS RARE; PLATELET ESTIMATE ADEQUATE
[2017-12-11 07:30] VITALS: BP 110/52
--- NOTE | 2017-12-11 08:00 | NUR ---
RN RESUMED CARE OF PT THIS AM. PT VENTILATED, ON PRECEDEX, AND CALM. RESPONSIVE TO PAIN. VSS. LOW GRADE TEMP. BLACK REMAINS IN PLACE. SCDS ON. NO FAMILY AT BEDSIDE. GOALS FOR TODAY INCLUDE WEANING TRIAL. MAINTAIN SKIN INTEGRITY AND ORAL MUCOSA.
[2017-12-11 08:12] LABS: BE -3.3 mmol/L (-2 to +3); HCO3 19.2 mmol/L (22.0-26.0); PCO2 27.8 mmHg (35.0-45.0); PO2 89.4 mmHg (75.0-100.0); pH 7.457 (7.340-7.450)
[2017-12-11 10:11] LABS: URINE BILIRUBIN NEGATIVE (Negative); URINE BLOOD 3+ (Negative); URINE CLARITY CLEAR; URINE COLOR YELLOW; URINE GLUCOSE-RANDOM NEGATIVE (Negative); URINE KETONES NEGATIVE (Negative); URINE LEUKOCYTES-REFLEX TRACE (Negative); URINE NITRITE-REFLEX NEGATIVE (Negative); URINE PROTEIN 2+ (Negative); URINE UROBILINOGEN 0.2 E.U./dl (0.2-1.0)
--- NOTE | 2017-12-11 10:12 | NUR ---
DR. LEON CALLED REGARDING PT, STATES WOULD LIKE TRIAL TO BEGIN NOW WITH CPAP 5 OVER 5 AND TO LEAVE PRECEDEX RUNNING. RT PAGED AND NOTIFIED. STATES THEY WILL BE HERE SHORTLY FOR TRIAL.
[2017-12-11 10:17] LABS: BACTERIA-REFLEX 1-9 Few /HPF (None Seen); CASTS None Seen /LPF (None Seen); CRYSTALS None Seen /LPF (None Seen); SQUAMOUS 0-3 Few /LPF (0-3); URINE RBC >20 Many /HPF (0-2); URINE WBC-REFLEX 0-5 Rare /HPF (0-5)
--- NOTE | 2017-12-11 10:32 | NUR ---
Interdisc. Rounds: Pt remains on vent, planned weaning trial today, but put on hold d/t worsen CXR. Tube feedings are also on hold pending weaning trial.
[2017-12-11 12:00] VITALS: BP 123/59
--- NOTE | 2017-12-11 12:53 | CON ---
[address] [address] CONSULTATION Name: ADEBAYODONATOCRAIG L Room: [address] IN M.R.#: [id number] Admission: 12/06/17 Attend Phys: Gwendolyn Schroeder MD Discharge: Date of : 43 Report #: [id number] THIS REPORT FOR: //name// CC: Helio Garcia DATE OF SERVICE: 12/08/2017 REQUESTED BY: Dr. Arriaga. INDICATION FOR CONSULTATION: Acute hypoxemic respiratory failure. HISTORY OF PRESENT ILLNESS: This is a 72-year-old gentleman. His past medical history is as mentioned below. This does include a history of coronary artery disease. The patient is status post CABG. Even after having CABG, the patient is reporting to have on ongoing angina. Subsequently, he does have a bioprosthetic valve as well. There is no known history of smoking. The patient was initially admitted on the and underwent transurethral resection of a bladder tumor, which was performed yesterday. The patient subsequently did have bladder irrigation as well. He then went into respiratory distress. He became severely hypotensive. His troponin also increased to around 33. The patient therefore was endotracheally intubated. At this time, the patient remains in severe shock. Blood pressures at the time of my evaluation within the range of 75-77 systolic. An arterial line is being attempted; however, due to poor peripheral perfusion, this has not been performed yet and it appears to be difficult to place. The patient, when we are able to get an adequate O2 saturation, has been oxygenating up to 97%. He is on 50% FiO2. The patient is making some urine. The patient is noted to have suspicion of aspiration. He is on a fentanyl infusion for sedation, he still does appear to be waking up. Even with 40 mcg of Levophed, we are unable to maintain blood pressure at this time. The patient obviously is unable to provide further history or review of systems. 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 Bilateral knee surgeries, tonsillectomy, hypertension, hyperlipidemia, history of GI bleed. The patient's last available echocardiogram is from 2016 and shows a left ventricular ejection fraction of 50-55% with a pulmonary artery systolic elevated to 50-55 as well. SOCIAL HISTORY: There is no known history of smoking, ethanol [place] [address] CONSULTATION Name: CRAIG SIMON Room: [address]#: [id number] Admission: 12/06/17 Attend Phys: Gwendolyn Schroeder MD Discharge: Date of : 43 Report #: [id number] FAMILY HISTORY: Mother had heart disease. ALLERGIES: SULFONAMIDE ANTIBIOTICS. THE PATIENT HAS ALSO HAD A GI BLEED ON [place]. CURRENT MEDICATIONS: [facility]. HOME MEDICATIONS: [facility] also [facility]. PHYSICAL EXAMINATION: GENERAL: The patient is profoundly hypotensive. He is on 40 mcg per minute of norepinephrine. VITAL SIGNS: Blood pressure is 77/40. He has poor peripheral perfusion, appears to be cold and clammy. He is in assist control mode of ventilation with 50% FIO2, 5 of PEEP. He is oxygenating 97%. He has a low-grade fever up to 37.5 degrees Celsius. HEENT: Normocephalic and atraumatic. Pupils bilaterally act equal, constricted, poorly reactive. Endotracheal tube is in good position. NECK: Does not show raised JVP, asymmetry, mass or lymph nodes. CHEST: Symmetrical expansion on inspection and palpation. On auscultation, breath sounds are bilaterally equal. Clear to auscultation. HEART: Regular. There is no murmur. ABDOMEN: Soft and nontender. EXTREMITIES: Lower extremities show minimal edema only. There is no calf tenderness. SKIN: Dry and intact. NEUROLOGICAL: He does move all extremities bilaterally equally and spontaneously with no focal deficit identified. LABORATORY DATA: The patient's lab work from this morning as well as yesterday in [facility]. Arterial blood gas performed yesterday also in [place] reviewed. The patient had a CTA chest performed last night. Note that he did receive IV dye as well at that time, this is also [facility] and this is reviewed. ASSESSMENT AND PLAN: 1. Acute hypoxemic respiratory failure. We will continue current ventilator management. We will titrate FiO2. I would like to get him sedated better, but we will need to watch his blood pressure closely. He does need A-line, hopefully we can get a radial A-line placed. If this is not possible, then it will be possible that he needs a femoral A-line placed. 2. Severe shock, likely cardiogenic shock; however, hemorrhagic shock and septic shock not completely ruled out at this time. The patient does appear to be overall total body fluid overloaded. Noted that he did have a myocardial infarction and he likely has a low EF. At this time, [place] [address] CONSULTATION Name: CRAIG SIMON Room: [address]#: [id number] Admission: 12/06/17 Attend Phys: Gwendolyn Schroeder MD Discharge: Date of : 43 Report #: [id number] oxygenate and the patient is severely hypotensive even with 40 of norepinephrine, we are not able to maintain blood pressure. Therefore, I did, for now, give him fluids. Noted that he later will need diuresis. He does need an A-line. As mentioned above, he does have a central line in place already. 3. Acute myocardial infarction, Cardiology service on the case, echo awaited. 4. Pulmonary infiltrates/suspicion of aspiration. He is on cefepime. I agree with the same. 5. Acute renal failure, discussion as above. 6. Possible acute upper GI bleed on a Protonix infusion. We will monitor H and H closely. 7. Acute renal failure, discussion as above. 8. Possible acute adrenal insufficiency, he is already on steroids. The patient is critically ill at this time. Total time spent providing critical care to this patient today is around 45 minutes. I did call and discuss the case with as well as Dr. Arriaga. <ELECTRONICALLY SIGNED> By: Koffi Iniguez MD 12/11/17 1253 1131 1945Aconstanza Iniguez MD /nt
[2017-12-11 16:00] VITALS: BP 120/54
--- NOTE | 2017-12-11 16:19 | NUR ---
PT UNABLE TO PROGRESS TOWARDS GOALS THIS SHIFT. NO APPARENT PAIN. VSS. LOW GRADE TEMP. BLACK REMAINS IN PLACE WITH DARK KATELIN URINE AND 850 CC OUT THIS SHIFT. REMAINS VENTILATED, RESTRAINTED, AND ON PRECEDEX. CALM AND AROUSES TO STIMULATION. HAS PERIODS OF TACHYPNEA WITH RESPIRATIONS IN THE HIGH 30'S AND LOW 40'S. PRN VERSED AND FENTANYL PUSHES ADMINISTERED FOR TACHYPNEA WITH A GOOD RESPONSE. PT RESPIRATIONS LOW 30'S AFTER MEDICATION. WEANING TRIAL COMPLETED THIS SHIFT AND PT UNABLE TO TOLERATE, SEE PREVIOUS NOTE.
[2017-12-12] VITALS: BP 126/59
[2017-12-12 04:04] LABS: ABSOLUTE LYMPHOCYTES 0.2 thou/uL (0.8-5.3); ABSOLUTE MONOCYTES 0.8 thou/uL (0.0-1.2); ABSOLUTE NEUTROPHILS 8.7 thou/uL (1.6-8.1); BASOPHILS 0.3 %; HEMATOCRIT 37.5 % (42.0-52.0); HEMOGLOBIN 12.5 gm/dL (14.0-18.0); LYMPHOCYTES 1.7 %; MCH 33.2 pg (26.0-34.0); MCHC 33.3 g/dL (28.0-37.0); MCV 99.7 fL (80.0-100.0); MONOCYTES 8.2 %; NUCLEATED RBCS 0 /100WBC; PLATELET COUNT* 232 thou/uL (150-400); POLYS 89.8 %; RBC 3.76 mil/uL (4.50-6.00); RDW-CV 15.1 % (10.5-14.5); WBC 9.7 thou/uL (4.0-11.0)
[2017-12-12 04:25] LABS: ALBUMIN 2.6 g/dL (3.4-5.0); CALCIUM 7.9 mg/dL (8.5-10.1); CREATININE 1.8 mg/dL (0.6-1.3); MAGNESIUM 3.5 mg/dL (1.8-2.4); POTASSIUM 4.9 mmol/L (3.5-5.1); TOTAL BILIRUBIN 0.8 mg/dL (<0.1-1.0); TOTAL PROTEIN 6.5 g/dL (6.4-8.2)
--- NOTE | 2017-12-12 05:03 | NUR ---
PT. REMAINS ON VENTILATOR, PRECEDEX GTT. MULTIPLE PRN VERSED AND FENTANYL GIVEN DUE TO PT. BECOMING VERY TACHYPNIC. PRN MEDS PROVIDE RELIEF FOR LESS THAN ONE HOUR. COMPLETE BED BATH GIVEN. TUBE FEEDING AT 40ML/HR, LOW RESIDUALS. SINUS RHYTHM. ART LINE/CVP REMAIN IN PLACE, RIGHT SUBCLAVIAN DRESSING CHANGED. BILAT SOFT WRIST RESTRAINTS. WILL CONTINUE TO MONITOR.
[2017-12-12 08:00] VITALS: BP 140/90
--- NOTE | 2017-12-12 08:00 | NUR ---
RN RESUMED CARE OF PT THIS AM. PT REMAINS ON VENTILATOR AND PRECEDEX GTT. PUSHES OF VERSED AND FENTANYL NEEDED FOR TACHYPNEA. CALM AND RESPONSIVE TO NOXIOUS STIMULI. SHANICE, CVP, AND BLACK REMAIN IN PLACE. NO FAMILY AT BEDSIDE. GOALS FOR TODAY INCLUDE WEANING SEDATING MEDICATIONS AND VENTILATOR. TRIAL TO BE DONE TODAY AT 1000.
[2017-12-12 08:08] LABS: BE -4.4 mmol/L (-2 to +3); HCO3 18.7 mmol/L (22.0-26.0); PCO2 29.2 mmHg (35.0-45.0); PO2 96.6 mmHg (75.0-100.0); pH 7.425 (7.340-7.450)
[2017-12-12 10:33] VITALS: BP 126/59
--- NOTE | 2017-12-12 10:54 | NUR ---
WEANING TRIAL COMPLETED THIS AM WITH RT AT BEDSIDE. PER RT PT DID NO TOLERATE TRIAL HR AND BP INCREASED AND PT BECAME VERY TACHYPNEIC WITH RESPIRATIONS 40-50. PT WAS REPLACED ON PREVIOUS SETTINGS ON VENTILATOR AFTER [address] LEON CALLED RN TO CHECK ON PT STATUS, AND MD UPDATED. PER DR. LEON, INCREASE PRECEDEX GTT TO 1.4 MCG/KG/HR AND CONTINUE FENTANYL AND VERSED PUSHES TO KEEP RESPIRATIONS BELOW 30. DR. LEON TO BE AT BEDSIDE LATER THIS MORNING. FAMILY AT BEDSIDE AND UPDATED ON PLAN OF CARE. DENY AND FURTHER QUESTIONS/CONCERNS.
--- NOTE | 2017-12-12 11:00 | NUR ---
PT REMAINS ON VENT. SPOKE WITH , SHE HAS NO QUESTIONS ABOUT PLAN OF CARE. CASE MGT TO CONTINUE TO FOLLOW.
--- NOTE | 2017-12-12 11:05 | CON ---
[facility] [address] [place] [address] CONSULTATION Name: ADEBAYODONATOCRAIG Aida Room: [address] IN .R.#: [id number] Admission: 12/06/17 Attend Phys: Gwendolyn Schroeder MD Discharge: Date of : 43 Report #: [id number] THIS REPORT FOR: //name// CC: Helio Garcia DATE OF SERVICE: 12/08/2017 REQUESTING PHYSICIAN: Satya Arriaga M.D. REASON FOR CONSULTATION: Acute kidney injury. HISTORY OF PRESENT ILLNESS: The patient is a 72-year-old gentleman, who was admitted for surgery for his bladder tumor. He had complicating medical history, history of severe coronary artery disease, status post bypass graft surgery and a history of bioprosthetic aortic valve placement. The patient was admitted and in preparation for the surgery. He was placed on Aggrastat. He underwent surgery on 12/06/2017, so he has transurethral resection of the bladder tumor was performed. Post surgery, blood pressure dropped. Actually on 12/07/2017, immediately postsurgery, he was fine, but then on 12/08/2017, it dropped to the 70s and he developed acute cardiac event with troponin now increasing in its 34 now. The patient went into cardiogenic shock. His creatinine went up to 1.4, then 2.2 today. His urine output still fairly good. PAST MEDICAL HISTORY: As mentioned earlier. FAMILY HISTORY: Noncontributory. SOCIAL HISTORY: No alcohol abuse, no tobacco abuse as far as I know. REVIEW OF SYSTEMS: The patient is intubated. PHYSICAL EXAMINATION: GENERAL: He is in Intensive Care Unit, intubated and sedated, on the pressors. VITAL SIGNS: Blood pressure is 90/48, heart rate 72, respiratory rate 14, afebrile. HEENT: Pupils are round. NECK: Fatty. LUNGS: Some decreased breath sounds and coarse breath sounds at bases. CARDIOVASCULAR: Distant heart tones. ABDOMEN: Obese. A Bess is in place, constant irrigation is in process. LOWER EXTREMITIES: With +1 edema. LABORATORY REPORT: White count 14.7, hemoglobin 11.7, [place] [address] CONSULTATION Name: CRAIG SIMON Room: [address]#: [id number] Admission: 12/06/17 Attend Phys: Gwendolyn Schroeder MD Discharge: Date of : 43 Report #: [id number]. Serum sodium 143, potassium 4.5, chloride 106, carbon dioxide 28, BUN 23, creatinine 2.2, calcium 8.3. ASSESSMENT: A 72-year-old gentleman admitted for transurethral resection of the bladder tumor, surgery was performed on 12/06/2017, went into cardiogenic shock, and acute cardiac event, dropped his blood pressure, creatinine is worse. He ____ to have contrast exposure. His acute kidney injury, now is due to combination of low blood pressure, under perfusion and exposure to the contrast. Complicated situation. He is retaining fluids and pulmonary edema. I will have to gently diurese him. We will try to keep his mean arterial pressure above 60 and follow his urine output and renal function. In the setting of acute cardiac event if he requires dialysis, his prognosis will be extremely poor. He most likely will not be able to tolerate dialysis. I discussed this case with Dr. Arriaga. Thank you very much for asking my opinion on acute kidney injury on the patient. <ELECTRONICALLY SIGNED> By: Evan Hernandez MD 12/12/17 1105 1023 1903Alexlucian Hernandez MD /nt
--- NOTE | 2017-12-12 17:21 | NUR ---
PT UNABLE TO PROGRESS TOWARDS GOALS THROUGHOUT SHIFT. REMAINS VENTILATED, RESPONSIVE TO PAINFUL STIMULI, AND ON PRECEDEX GTT. WEANING TRIAL COMPLETED THIS AM AND PT UNABLE TO TOLERATE. REMAINS TACHYPNEIC. ADMINISTERING FENTANYL AND VERSED PUSHES PRN FOR RESPIRATIONS >30 AND PRECEDEX GTT INCREASED TO 1.4 MCG/KG/HR FROM 1.0 MCG/KG/HR PER DR. LEON. SHANICE, CVP, AND BLACK REMAIN IN PLACE. FAMILY AT BEDSIDE, DENY FURTHER QUESTIONS/CONCERNS AT THIS TIME.
[2017-12-12 20:00] VITALS: BP 160/59
[2017-12-12 22:00] VITALS: BP 151/56
[2017-12-13] VITALS (17 sets, daily range): BP systolic 96–172; BP diastolic 49–70
[2017-12-13 04:47] LABS: ABSOLUTE LYMPHOCYTES 0.1 thou/uL (0.8-5.3); ABSOLUTE MONOCYTES 0.8 thou/uL (0.0-1.2); ABSOLUTE NEUTROPHILS 9.8 thou/uL (1.6-8.1); BASOPHILS 0.2 %; HEMATOCRIT 38.4 % (42.0-52.0); HEMOGLOBIN 12.9 gm/dL (14.0-18.0); LYMPHOCYTES 1.1 %; MCH 33.5 pg (26.0-34.0); MCHC 33.7 g/dL (28.0-37.0); MCV 99.5 fL (80.0-100.0); MONOCYTES 7.3 %; MPV 9.1 fl. (7.2-11.1); NUCLEATED RBCS 0 /100WBC; PLATELET COUNT* 185 thou/uL (150-400); POLYS 91.4 %; RBC 3.86 mil/uL (4.50-6.00); RDW-CV 14.9 % (10.5-14.5); WBC 10.7 thou/uL (4.0-11.0)
[2017-12-13 05:11] LABS: ALBUMIN 2.5 g/dL (3.4-5.0); CALCIUM 7.8 mg/dL (8.5-10.1); CREATININE 1.3 mg/dL (0.6-1.3); MAGNESIUM 3.4 mg/dL (1.8-2.4); POTASSIUM 4.6 mmol/L (3.5-5.1); TOTAL BILIRUBIN 0.8 mg/dL (<0.1-1.0); TOTAL PROTEIN 6.2 g/dL (6.4-8.2)
--- NOTE | 2017-12-13 05:42 | NUR ---
PT BP CONTINUES 180/67 CALLED CARDIOLOGY THEY ARE AWARE NO NEW ORDERS GIVEN.
--- NOTE | 2017-12-13 06:48 | NUR ---
PATIENT SLOWLY PROGRESSING. HIS BP HAVE BEEN ELEVATED MOST OF THE NIGHT. PAGED CARDIOLOGY ORDERS RECEIVED THEY WILL FOLLOW UP IN THE A.M. URINE OUTPUT ADEQUATE. CONTINUES ON PRECEDEX. PT OPENS EYES TO STIMULATION. CONTINUES ON TUBE FEEDS TOLERATING WELL. LOW RESIDUALS. INCREASED INSULIN TO MODERATE DOSE. PT RECEIVED FULL BED BATH. TOLERATED WELL. DID HAVE TO GIVE FENTANYL AND VERSED PUSHES OFTEN TO KEEP RR <30. BED TO LOWEST POSITION. WILL CONTINUE TO MONITOR.
--- NOTE | 2017-12-13 08:00 | NUR ---
RN RESUMED CARE OF PT THIS AM. PT RESPONDING TO VOICE AND OBEYING COMMANDS. REMAINS VENTILATED AND ON PRECEDEX. BP ELEVATED, MD AWARE. PT SHAKES HEAD NO WHEN ASKED IF IN PAIN. SHANICE, CVP, AND BLACK REMAIN IN PLACE. TF CONTINUES AT GOAL RATE. GOALS FOR THIS SHIFT INCLUDE WEANING VENT AND SEDATION, STABILIZING BP, AND CONTINUING TO IMPROVE MENTATION/ALERTNESS. NO FAMILY AT BEDSIDE, BUT DAUGHTER CALLED RN AND WAS UPDATED REGARDING PLAN OF CARE. STATES SHE WILL CALL HER MOTHER, PT AND UPDATE. NO FURTHER QUESTIONS/CONCERNS.
--- NOTE | 2017-12-13 08:00 | NUR ---
RN RESUMED CARE OF PT THIS AM. PT ALERT AND COOPERATIVE. ORIENTED TO SELF AND PLACE. UNAWARE OF WHY HE IS HERE AND BELIEVES HE IS DYING OF CANCER AND THAT IT IS 1984. PT REORIENTED/REDIRECTED. C/O PAIN, MEDICATION TO BE ADMINISTERED. GOALS FOR TODAY INCLUDE TRANSFER TO TELE, INCREASE ACTIVITY AND ORAL INTAKE, AND IMPROVE ORIENTATION.
--- NOTE | 2017-12-13 10:31 | NUR ---
PT REMAINS ON VENT. PT MORE ALERT, FOLLOWING COMMANDS. WEANING TRIAL THIS MORNING.
[2017-12-13 11:49] LABS: BE -4.2 mmol/L (-2 to +3); HCO3 19.2 mmol/L (22.0-26.0); PCO2 30.7 mmHg (35.0-45.0); PO2 103.9 mmHg (75.0-100.0); pH 7.415 (7.340-7.450)
--- NOTE | 2017-12-13 13:00 | NUR ---
RN TRANSFERED CARE OF PT TO RNFRANCISCO J. FAMILY AT BEDSIDE AND NOTIFIED. PT REMAINS RESPONSIVE TO VOICE AND OBEYING COMMANDS. VENT TRIAL COMPLETED THIS AM AND PT UNABLE TO TOLERATE. REMAINS ON VENT WITH PRECEDEX GTT. IS NOT REQUIRING ADDITIONAL FENTNAYL AND/OR VERSED PUSHES NEEDED FOR TACHYPNEA. PT HOME REGIMEN OF XANAX STARTED AND ADMINISTERED. PT HOME REGIMEN OF COREG AND IMDUR STARTED AND PER DR. SHETH COREG ADMINISTRED FIRST AND IF BP STABLE, THEN ADMINISTER IMDUR. PT BP DROPPED TO SBP OF 90 AFTER COREG ADMINISTERED, IMDUR WAS HELD. PT SBP 130 CURRENTY. TF CONTINUES AT GOAL AND TOLERATING WELL. BLACK REMAINS IN PLACE AND 750CC OUT THIS AM. PT SHAKES HEAD NO WHEN ASKED IF IN PAIN. FAMILY DENIES ANY FURTHER QUESTIONS/CONCERNS.
[2017-12-14] VITALS (21 sets, daily range): BP systolic 127–159; BP diastolic 57–79
[2017-12-14 05:18] LABS: HEMATOCRIT 38.2 % (42.0-52.0); HEMOGLOBIN 12.3 gm/dL (14.0-18.0); MCH 32.3 pg (26.0-34.0); MCHC 32.1 g/dL (28.0-37.0); MCV 100.6 fL (80.0-100.0); MPV 8.7 fl. (7.2-11.1); RBC 3.8 mil/uL (4.50-6.00); RDW-CV 15.5 % (10.5-14.5); WBC 12.1 thou/uL (4.0-11.0)
[2017-12-14 05:31] LABS: CALCIUM 8.2 mg/dL (8.5-10.1); CREATININE 1.6 mg/dL (0.6-1.3); MAGNESIUM 3.6 mg/dL (1.8-2.4); POTASSIUM 4.6 mmol/L (3.5-5.1)
--- NOTE | 2017-12-14 07:51 | PATH ---
[address] [address] PATHOLOGY RPT PROCEDURE Name: LULUJANEYCRAIG Aida Room: [address] IN .R.#: [id number] Admission: 12/06/17 Date of : 43 Discharge: Report #: [id number] Path Case #: [id number] [facility] Accession Number: [id number] . 01 Material submitted: . BLADDER TUMOR . 01 Clinical history: . Neoplasm of bladder . 02 Diagnosis: Bladder tumor, transurethral resection: - UROTHELIAL CARCINOMA, HIGH GRADE, NODULAR AND PAPILLARY TYPES, WITH INVASION OF SUBMUCOSA (LAMINA PROPRIA). SEE COMMENT. S/12/11/2017 . 02 Comment: The specimen is limited by prominent cauterization artifact throughout. No definite muscularis propria and no vascular invasion is identified. . Reviewed with Dr. Ace Estrada who agrees with the diagnosis. (LINK:susanne; 12/11/2017) . 02 Electronically signed: . Selvin Chung MD, Pathologist NPI- [id number] . 01 Gross description: . The specimen is received in formalin, labeled "Luluenflow, Craig, bladder BX" and consists of multiple soft friable fragments of botello-brown tissue measuring 2.7 x 1.8 x 0.4 cm in aggregate. They are entirely submitted in A1. (SDY; 12/08/2017) SYU/SYU . 02 Pathologist provided ICD-10: C67.9 . 02 CPT . 513668 Performed at: [address], [place], [place] [id number] MD Adal Peguero MD Phone: [phone] Performed at: 02 [facility] [address], [place], [place] [address] MD Selvin Chung MD Phone: [phone]
[2017-12-14 10:46] LABS: BE -2.8 mmol/L (-2 to +3); HCO3 20.4 mmol/L (22.0-26.0); PCO2 30.7 mmHg (35.0-45.0); PO2 95.4 mmHg (75.0-100.0)
--- NOTE | 2017-12-14 19:05 | NUR ---
RECIEVED REPORT FROM NIGHT, RN. ASSESSMENTS CHARTED. AFEBRILE. FAILED TTT TODAY. RR WAS IN THE 50'S. 2ND WEANING TRIAL ATTEMPTED AND HALDOL GIVEN WELL. PT STILL FAILED TRIAL. ART LINE D/C'D. PRECEDEX INFUSING AND TUBE FEEDINGS INFUSING. ADEQUATE URINE OUTPUT. REPORT GIVEN TO ONCOMING NURSE.
--- NOTE | 2017-12-14 23:54 | NUR ---
RECIEVED REPORT AND ASSUMED CARE OF PT AT 1915. PT INTUBATED AND SEDATED ON VENTILATOR. PT OPENS EYES TO VOICE, NODS HEAD YES AND NO, FOLLOWS COMMANDS. HS MEDS AND ORAL CARE GIVEN ORDERED. DISCUSSED PT'S PROGRESS AND LAB VALUES WITH PT'S DAUGHTER.
[2017-12-15] VITALS (25 sets, daily range): BP systolic 125–185; BP diastolic 55–79
[2017-12-15 07:27] LABS: HEMATOCRIT 38.9 % (42.0-52.0); MCV 100.4 fL (80.0-100.0); NUCLEATED RBCS 0 /100WBC; RBC 3.88 mil/uL (4.50-6.00); WBC 15.7 thou/uL (4.0-11.0)
[2017-12-15 07:29] LABS: HEMOGLOBIN 12.6 gm/dL (14.0-18.0); MCH 32.5 pg (26.0-34.0); MCHC 32.4 g/dL (28.0-37.0); MPV 9.1 fl. (7.2-11.1); PLATELET COUNT* 219 thou/uL (150-400); RDW-CV 15.1 % (10.5-14.5)
[2017-12-15 07:36] LABS: ALBUMIN 2.7 g/dL (3.4-5.0); CALCIUM 8.6 mg/dL (8.5-10.1); CREATININE 1.3 mg/dL (0.6-1.3); MAGNESIUM 3.1 mg/dL (1.8-2.4); POTASSIUM 4.5 mmol/L (3.5-5.1); TOTAL BILIRUBIN 1.1 mg/dL (<0.1-1.0); TOTAL PROTEIN 6.2 g/dL (6.4-8.2)
[2017-12-15 08:23] LABS: ABSOLUTE MONOCYTES 0.2 thou/uL (0.0-1.2); ABSOLUTE NEUTROPHILS 15.5 thou/uL (1.6-8.1)
[2017-12-15 08:25] LABS: PLATELET ESTIMATE ADEQUATE
[2017-12-15 08:27] LABS: LARGE PLATELETS OCCASIONAL; POLYCHROMASIA Occasional
[2017-12-15 08:28] LABS: ANISOCYTOSIS 1+; POIKILOCYTOSIS Occasional
--- NOTE | 2017-12-15 11:19 | NUR ---
DURING WEANING TRIAL RESPIRATIONS IN 40'S OCCASIONALLY DROP DOWN TO 36. PER PULMONARY PT GIVEN PRN HALDOL. AFTER ADMININSTRATION OF HALDOL PT CONTINUE TO BREATH 36-44. TRIAL LASTED 20 MINUTES AND STOPPED BY DR. LEON. PER PULMONARY WILL CONTINUE TRIALS THE NEXT COUPLE OF DAYS.
--- NOTE | 2017-12-15 17:25 | NUR ---
PT TRANSFERED TO [facility] AT 1630.
--- NOTE | 2017-12-15 19:16 | NUR ---
PT AWAKE FREQUENTLY. PRN FENTANYL AND VERSED GIVEN 3 X'S THIS SHIFT. XANAX 1 TIME. PT HR IN 50'S ENTIRE SHIFT. DISCUSSED WITH DR HR IN 50'S AND PT HYPERTENSIVE. RECEIVED ORDER FOR ORAL HYDRALAZINE.
--- NOTE | 2017-12-15 19:46 | NUR ---
RECIEVED REPORT AND ASSUMED CARE OF PT AT 1930. PT INTUBATED AND SEDATED WITH PRESEDEX DRIP. PT OPENS EYES TO VOICE AND TOUCH AND FOLLOWS COMMANDS. SPOKE WITH PT'S DAUGHTER BRIEFLY BEFORE LEAVING FOR NIGHT. ORAL CARE DONE, NO SIGNS OF PAIN, DISCOMFORT OR SHORTNESS OF AIR.
[2017-12-16] VITALS (23 sets, daily range): BP systolic 110–167; BP diastolic 46–70
[2017-12-16 03:05] LABS: ABSOLUTE LYMPHOCYTES 0.4 thou/uL (0.8-5.3); ABSOLUTE NEUTROPHILS 12.5 thou/uL (1.6-8.1); BASOPHILS 0.1 %; HEMATOCRIT 39.4 % (42.0-52.0); HEMOGLOBIN 12.6 gm/dL (14.0-18.0); MCH 32.1 pg (26.0-34.0); MCHC 32.1 g/dL (28.0-37.0); MCV 100.2 fL (80.0-100.0); MONOCYTES 7.3 %; NUCLEATED RBCS 0 /100WBC; PLATELET COUNT* 214 thou/uL (150-400); POLYS 89.6 %; RBC 3.93 mil/uL (4.50-6.00); RDW-CV 15.4 % (10.5-14.5); WBC 13.9 thou/uL (4.0-11.0)
[2017-12-16 03:50] LABS: ALBUMIN 2.4 g/dL (3.4-5.0); CALCIUM 8.2 mg/dL (8.5-10.1); CREATININE 1.3 mg/dL (0.6-1.3); MAGNESIUM 2.8 mg/dL (1.8-2.4); POTASSIUM 4.4 mmol/L (3.5-5.1); TOTAL PROTEIN 5.7 g/dL (6.4-8.2)
[2017-12-16 11:25] LABS: BE 0.4 mmol/L (-2 to +3); HCO3 23.1 mmol/L (22.0-26.0); PCO2 31.6 mmHg (35.0-45.0); pH 7.481 (7.340-7.450)
--- NOTE | 2017-12-16 12:25 | NUR ---
PT EXTUBATED AT 1145. PRECEDEX TO CONTINUE RUNNING PER PULMONARY. BIPAP ON AT THIS TIME AND IS BEING TOLERATED WELL. HAS BEEN UPDATED AND IS AT THE BEDSIDE.
--- NOTE | 2017-12-16 19:58 | NUR ---
INITAL ASSESMENT COMPLETED AT 1914. PT EXTUBATED DURING DAY SHIFT. PT ASKING FOR A DRINK OF WATER. INFORMED PT HE WAS ABLE TO HAVE MOUTH SWABS. INFORMED PT THAT HE IS HIGH RISK TO ASPERATE LIQUIDS INTO HIS LUNGS DUE TO INTUBATION. PT LATER ASKING RESPIRATORY THERAPY FOR A DRINK. PT TOLD RT THAT NURSING HAD GIVEN HIM WATER TO DRINK. RE EDUCATED PT ABOUT RISK FOR ASPERATION.
[2017-12-17] VITALS (23 sets, daily range): BP systolic 124–181; BP diastolic 46–110
[2017-12-17 03:48] LABS: HEMATOCRIT 38.9 % (42.0-52.0); HEMOGLOBIN 12.5 gm/dL (14.0-18.0); MCHC 32.1 g/dL (28.0-37.0); MCV 99.6 fL (80.0-100.0); RBC 3.9 mil/uL (4.50-6.00); RDW-CV 15.2 % (10.5-14.5); WBC 15.4 thou/uL (4.0-11.0)
[2017-12-17 04:10] LABS: ALBUMIN 2.4 g/dL (3.4-5.0); CALCIUM 8.5 mg/dL (8.5-10.1); MAGNESIUM 2.5 mg/dL (1.8-2.4); POTASSIUM 4.2 mmol/L (3.5-5.1); TOTAL BILIRUBIN 0.9 mg/dL (<0.1-1.0); TOTAL PROTEIN 5.8 g/dL (6.4-8.2)
--- NOTE | 2017-12-17 05:55 | NUR ---
PT SLOWLY PROGRESSING TOWARD GOALS. PT MAINTAINED O2 SAT > 94% DURING SHIFT. PT ON BIAP AFTER 2300. PT'S RESPIRATIONS EVEN AND NON LABORED. PT CONTINUED ON PRESEDEX DRIP PER ORDERS. VITAL SIGNS WITHIN NORMAL LIMITS, WILL CONTINUE TO MONITOR.
--- NOTE | 2017-12-17 19:28 | NUR ---
RECIEVED REPORT AND ASSUMED CARE OF PT AT 1900. PT AWAKE, ALERT AND ORIENTED TO PERSON, PLACE, TIME OF DAY AND SITUATION. PT ON O2 AT 2 LITERS WITH SAT OF 96%. PT'S RESPIRATIONS EVEN AND NON LABORED. PT HAS WEAK NON PRODUCTIVE COUGH. PT OCCASIONALLY COUGHING UP SMALL AMOUNTS OF THICK WHITE SPUTUM. KIARA WITHIN REACH FOR PT TO SELF SUCTION. PT ON SPECIALTY BED WITH CONTINUOUS AIR FLOW TO PREVENT SKIN BREAKDOWN.
--- NOTE | 2017-12-17 20:36 | NUR ---
PT'S RESPIRATIONS IN LOW 30'S. PT SHORT OF AIR. DR NAZANIN BOYD.
--- NOTE | 2017-12-17 20:38 | NUR ---
BREATHING TREATMENT GIVEN PER RESPIRATORY THERAPY.
--- NOTE | 2017-12-17 21:36 | NUR ---
RECIEVED ORDERS FROM DR BACK TO PUT PT ON BIPAP AND GIVE LASIX. PT GIVEN 40 MG LASIX IV X 1 DOSE. PT ON BIPAP BREATHING 22-28/MINUTE. RESPIRATIONS EVEN AND LESS LABORED. PT HAS > 1 LITER IN BLACK CATHETER BAG AT THIS TIME. PT REPORTS BREATHING MUCH BETTER.
--- NOTE | 2017-12-17 22:16 | NUR ---
PT RANG CALL LIGHT AND ASKED TO HAVE BIPAP MASK REMOVED. REMOVED MASK AND GAVE PT WATER TO DRINK. EXPLAINED TO PT THAT BIPAP WAS NECESSARY FOR HIS LUNGS AND HEART HEALTH AT THIS TIME. INFORMED PT I WAS GIVING HIM MEDICINE TO STAY CALM AND HELP HIM SLEEP SO HE COULD TOLERATE BIPAP. PT GIVEN 1 MG ATIVAN IV FOR ANXIETY.
--- NOTE | 2017-12-17 23:52 | NUR ---
PT'S LUNG SOUNDS CLEAR IN ALL FEILDS AT THIS TIME. PT GIVEN PRN FENTANYL FOR RIB PAIN RELATED TO COUGHING.
[2017-12-18] VITALS (20 sets, daily range): BP systolic 105–165; BP diastolic 46–96
[2017-12-18 04:13] LABS: HEMATOCRIT 44.2 % (42.0-52.0); HEMOGLOBIN 14.3 gm/dL (14.0-18.0); MCH 32.4 pg (26.0-34.0); MCHC 32.4 g/dL (28.0-37.0); MCV 100.1 fL (80.0-100.0); RBC 4.41 mil/uL (4.50-6.00); RDW-CV 15.1 % (10.5-14.5); WBC 24.6 thou/uL (4.0-11.0)
[2017-12-18 04:48] LABS: ALBUMIN 2.7 g/dL (3.4-5.0); CALCIUM 8.8 mg/dL (8.5-10.1); MAGNESIUM 2.2 mg/dL (1.8-2.4); POTASSIUM 3.8 mmol/L (3.5-5.1); TOTAL BILIRUBIN 1.5 mg/dL (<0.1-1.0); TOTAL PROTEIN 6.5 g/dL (6.4-8.2)
--- NOTE | 2017-12-18 09:28 | NUR ---
PATIENT ALERT. HAD GREEN EMESIS. HOLDING PO MEDS FOR NOW. ATTEMTED TO HAVE PT ASSIST WITH TURNS.
--- NOTE | 2017-12-18 10:00 | NUR ---
PT EXTUBATED OVER THE WEEKEND. SITTING ON THE SIDE OF THE BED WORKING WITH P.T. NOW. S.T. HERE TO SEE PT ALSO. CASE MGT TO CONTINUE TO FOLLOW, WILL TALK WITH PT AND ABOUT POST-ACUTE REHAB OPTIONS.
--- NOTE | 2017-12-18 15:09 | NUR ---
DIET ADVANCED PATIENT TELLING ME FIRE DEPT STORIES. PROGRESSING.
[2017-12-19] VITALS (18 sets, daily range): BP systolic 115–142; BP diastolic 42–74
[2017-12-19 04:25] LABS: HEMATOCRIT 45.5 % (42.0-52.0); HEMOGLOBIN 14.3 gm/dL (14.0-18.0); MCH 31.9 pg (26.0-34.0); MCHC 31.4 g/dL (28.0-37.0); MCV 101.8 fL (80.0-100.0); RBC 4.47 mil/uL (4.50-6.00); WBC 28.2 thou/uL (4.0-11.0)
[2017-12-19 04:49] LABS: CALCIUM 8.9 mg/dL (8.5-10.1); MAGNESIUM 2.4 mg/dL (1.8-2.4); POTASSIUM 5.7 mmol/L (3.5-5.1)
--- NOTE | 2017-12-19 13:06 | NUR ---
ASSUMED CARE OF PT AROUND 0730 THIS AM.REFER TO ASSESSMENT. PT TRANSFER TO TELE STATUS. ANTICIPATE WORKING WITH PHYSICAL THERAPY THIS AFTERNOON. FREQUENTLY ENCOURAGING PT TO PARTICIPATE WITH ACTIVE ROM. PT'S ORIENTATION HAS IMPROVED SINCE THIS AM. MORE ALERT AND AWAKE THIS AFTERNOON. PT ATTEMPTING TO FEED SELF AT THIS TIME WITH AT BEDSIDE. DRESSING CHANGED TO LLE THIS SHIFT. PT HAD ONE EPISODE OF EMESIS THIS SHIFT. NO C/O N/V AT THIS TIME. NO OTHER CONCERNS AT THIS TIME. CLWR. WCTM.
--- NOTE | 2017-12-19 13:40 | NUR ---
SPOKE WITH PT AND ABOUT DISCHARGE OPTIONS. ULTIMATE GOAL IS TO RETURN HOME WITH , HOWEVER BOTH AGREE THAT HE IS TOO WEAK AT THIS POINT TO BE ABLE TO RETURN HOME. DISCUSSED REHAB OPTIONS, INCLUDING INPT REHAB IF HE IS ABLE TO TOLERATE 3 HRS OF THERAPY A DAY VS SNF. 'S FIRST CHOICE WOULD BE TO STAY HERE IF HE QUALIFIES FOR REHAB, OTHERWISE [facility] CHOICE FOR [facility]. WILL DISCUSS WITH P.T. AND PHYSICIAN.
--- NOTE | 2017-12-19 15:28 | NUR ---
RECIEVED REPORT FROM EWA RODRIGUEZ. PT TRANSFERED TO ROOM 224 FROM ICU AT APPROX 1420. THIS RN REVIEWED AND AGREES WITH THE AM ASSESMENT. PT DROWSY AND CONFUSED AT TIMES. DOES NOT PARTICIPATE IN CONVERSATION MUCH. BLACK IN PLACE DRAINING YELLOW URINE. PT/OT WORKING WITH PT THIS AFTERNOON. WILL CONTINUE WITH PLAN OF CARE.
[2017-12-20 04:00] VITALS: BP 161/75
[2017-12-20 04:35] LABS: HEMOGLOBIN 12.6 gm/dL (14.0-18.0); MCH 32.3 pg (26.0-34.0); MCHC 32.3 g/dL (28.0-37.0); MCV 100.2 fL (80.0-100.0); MPV 8.7 fl. (7.2-11.1); NUCLEATED RBCS 0 /100WBC; PLATELET COUNT* 235 thou/uL (150-400); RBC 3.89 mil/uL (4.50-6.00); RDW-CV 14.9 % (10.5-14.5); WBC 19.5 thou/uL (4.0-11.0)
[2017-12-20 04:45] LABS: ALBUMIN 2.6 g/dL (3.4-5.0); CALCIUM 8.7 mg/dL (8.5-10.1); CREATININE 0.8 mg/dL (0.6-1.3); MAGNESIUM 2.2 mg/dL (1.8-2.4); POTASSIUM 3.8 mmol/L (3.5-5.1); TOTAL BILIRUBIN 1.4 mg/dL (<0.1-1.0); TOTAL PROTEIN 5.7 g/dL (6.4-8.2)
[2017-12-20 05:02] LABS: ABSOLUTE EOSINOPHILS 0.6 thou/uL (0.0-0.7); ABSOLUTE LYMPHOCYTES 0.6 thou/uL (0.8-5.3); ABSOLUTE MONOCYTES 1.2 thou/uL (0.0-1.2); ABSOLUTE NEUTROPHILS 17.2 thou/uL (1.6-8.1)
[2017-12-20 05:05] LABS: PLATELET ESTIMATE ADEQUATE
--- NOTE | 2017-12-20 06:58 | NUR ---
PATIENT RESTED IN BED, NO ACUTE CHANGES. PATIENT DID NOT SHOW SIGNS OF DISTRESS. FALL PRECAUTIONS IN PLACE, BED ALARM ON, HOURLY ROUNDING OBSERVED. PATIENT TURNED Q 2 HOURS.
[2017-12-20 08:00] VITALS: BP 131/48
--- NOTE | 2017-12-20 14:00 | NUR ---
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
--- NOTE | 2017-12-20 15:06 | NUR ---
WOUND CARE NOTE: REASSESMENT OF LEFT LEG. NOTIFIED PER WOUND CENTER THAT PATIENT'S HAD CALLED CONCERNED ABOUT LEGS WEEPING AND DRESSINGS NOT BEING CHANGED. WOUND TO MEDIAL LEFT CALF CONTINUES TO BE EPITHELIALIZED, CLOSED, HEALED. THERE IS AN [employer] OVER AREA FOR PROTECTION, DATED 12/19. REMEASURED LEG FOR A SIZE E TUBIGRIP. MEASURED SIZE G FOR RIGHT LEG. GAVE BOTH TUBIGRIPS TO PATIENT'S RN TO APPLY. DID NOT OBSERVE ANY WEEPING/DRAINING FROM EITHER LEG. BOTH FEET WITH HEELMEDIX BOOTS. RECOMMEND DOUBLE LAYER TUBIGRIPS BILATERALLY, REMOVE AND REPLACE DAILY
[2017-12-20 16:00] VITALS: BP 103/41; BP 113/56
[2017-12-20 20:00] VITALS: BP 120/56
[2017-12-21] VITALS: BP 126/62
[2017-12-21 04:00] VITALS: BP 143/70
[2017-12-21 04:53] LABS: CALCIUM 8.5 mg/dL (8.5-10.1); CREATININE 0.8 mg/dL (0.6-1.3); MAGNESIUM 2.2 mg/dL (1.8-2.4); POTASSIUM 3.7 mmol/L (3.5-5.1)
--- NOTE | 2017-12-21 05:35 | NUR ---
ASSUMED CARE OF PT AFTER REPORT AT 1930. PT A&OX1. ORIENTED ONLY TO HIMSLELF AND FORGETFUL. VSS. PHYSICAL ASSESSMENT COMPLETED AND CHARTED. PT ON RA WITH 95% O2 SAT. PT TRACING SR ON TELE. PICC LINE PATENT AND INTACT.WITH BLACK CATHETER TO DEPENDENT DRAIN.PT COMPLAINED OF HEADACHE AND NECK PAIN WITH PAIN SCALE OF 3-4/10-DENIES ANY PAIN MEDS. PT COUGHED UP BLOOD CLOTS TWICE-DR SHETH INFORMED WITH NO NEW ORDERS. TURNED EVERY 2 HOURS. HOURLY ROUNDING OBSERVED. CALL LIGHT WITHIN REACH.
[2017-12-21 08:30] VITALS: BP 134/50
--- NOTE | 2017-12-21 11:29 | NUR ---
CM faxed initial referral to [facility], [place], operated by [facility], they are able to accept Pt at [place]. [phone] f:[phone]
[2017-12-21 11:56] VITALS: BP 144/70
[2017-12-21 16:38] VITALS: BP 125/60
--- NOTE | 2017-12-21 16:44 | NUR ---
ASSUMED PT CARE AT 0700 PT IS ALERT AND ORIENTED X 2-3 PT IS CONFUSED, PT DENIES PAIN OR SOA ON RA PT SATS ABOVE 90 ON RA PULMONOLOGY ORDERED NOCTURNAL CONTIONOUS SATS, PT IS UNABLE TO STAND PT IS VERY WEAK CAN SIT ON SIDE OF BED THIS NURSE WAS IN PATIENT ROOM WHEN DAUGHTER CALLED THIS NURSE UNABLE TO TALK WITH DAUGHTER DUE TO PT CARE, RETURNED DAUGHTERS CALL DAUGHTER WAS RUDE HATEFUL SCREAMING AT THIS NURSE STATING " I GUESS I WILL HAVE TO TAKE A LEAVE OF ABSENCE AND COME SIT UP THERE WHICH IS UNFAIR TO ME" DAUGHTER ALSO STARTED " I FIND IT IRONIC THAT YOU CALLED ME BACK AFTER I THREATENED TO CALL ADMINISTRATION" THIS NURSE CALMLY EXPLAINED TO DAUGHTER THAT I WAS IN MULTIPLE PATIENTS ROOM INCLUDING HER FATHERS THIS WAS THE FIRST CHANCE I HAD TO CALL AND I WOULD BE HAPPY TO ANSWER ALL QUESTIONS AND GIVE HER AN UPDATE. DAUGHTER DEMANDED A NEURO CONSULT AND WAS MORE CALM THIS NURSE GAVE DAUGHTER UPDATE REGARDING HER FATHERS CONDITION. THIS NURSE PAGED PHYSICIAN OBTAINED NEURO CONSULT AND CT HEAD, PT IS SR PVC ON THE MONITOR, PT IS TURNED Q 2 HOURS, PT HAS MORE MOVEMENT IN BILAT HANDS, WILL CONTINUE TO MONITOR
[2017-12-21 20:00] VITALS: BP 126/59
[2017-12-22] VITALS (7 sets, daily range): BP systolic 106–153; BP diastolic 51–77
[2017-12-22 04:55] LABS: ABSOLUTE BASOPHILS 0.1 thou/uL (0.0-0.2); ABSOLUTE EOSINOPHILS 0.1 thou/uL (0.0-0.7); ABSOLUTE LYMPHOCYTES 0.7 thou/uL (0.8-5.3); ABSOLUTE NEUTROPHILS 16.4 thou/uL (1.6-8.1); BASOPHILS 0.5 %; EOSINOPHILS 0.4 %; HEMATOCRIT 40.7 % (42.0-52.0); LYMPHOCYTES 3.9 %; MCH 32.2 pg (26.0-34.0); MCHC 31.9 g/dL (28.0-37.0); MCV 100.7 fL (80.0-100.0); MONOCYTES 5.3 %; MPV 8.3 fl. (7.2-11.1); NUCLEATED RBCS 1 /100WBC; PLATELET COUNT* 212 thou/uL (150-400); POLYS 89.9 %; RBC 4.04 mil/uL (4.50-6.00); RDW-CV 15.1 % (10.5-14.5); WBC 18.2 thou/uL (4.0-11.0)
[2017-12-22 05:04] LABS: ALBUMIN 2.3 g/dL (3.4-5.0); POTASSIUM 3.9 mmol/L (3.5-5.1); TOTAL BILIRUBIN 1.2 mg/dL (<0.1-1.0); TOTAL PROTEIN 5.8 g/dL (6.4-8.2)
--- NOTE | 2017-12-22 05:14 | NUR ---
ASSUMED CARE OF PT AFTER REPORT AT 1930. PT A&OX3- NOT ORIENTED TO TIME AND FORGETFUL. VSS. PHYSICAL ASSESSMENT COMPLETED AND CHARTED. PT ON RA WITH 95% O2 SAT. PT TRACING SR PVC ON TELE. PICC LINE PATENT AND INTACT. PT BLACK TO DEPENDENT DRAIN. PT REPORTED UP 2-3 MAX ASSIST ON SIDE OF BED BUT REMAINS ON BED ALL NIGHT. ON CONTINUOUS O2 SAT WHILE SLEEPING. DENIES ANY PAIN OR DISCOMFORT. HOURLY ROUNDING OBSERVED. HS REST & SAFETY GOALS ACHIEVED.Q2H TURN. CALL LIGHT WITHIN REACH.
[2017-12-22 05:31] LABS: CALCIUM 8.2 mg/dL (8.5-10.1); CREATININE 0.8 mg/dL (0.6-1.3)
--- NOTE | 2017-12-22 10:27 | NUR ---
ASSUMED CARE OF PT AT 0730. PT RESTING IN BED. PT A&0X3, FORGETFUL AND CONFUSED AT TIMES. BED ALARM IN PLACE. PT DENIES ANY PAIN OR SHORTNESS OF BREATH AT THIS TIME. PT TRACING SR WITH BBB ON THE CAFETERIA MANAGER. EDEMA NOTED TO CINDY. TUBA ENVIRONMENTAL SERVICES MANAGER IN PLACE. PT ON RA SAT 98%. CONTINUOUS PULSE OX IN PLACE. BLACK TO DEPENDENT DRAINAGE. PT UP WITH MAX ASSIST. PT REQUIRES ASSIST WITH MEALS. PT GOAL FOR TODAY IS NEURO CONSULT IN PLACE, INCREASE ACTIVITY, PT AND OT TO WORK WITH PT AND MONITOR ORIENTATION. ASPIRATION PRECAUTIONS IN PLACE. AM ASSESSMENT CHARTED. MEDICATIONS PER MAR WITH NO DIFFICULTY. PT REPOSITIONED EVERY 2 HOURS FOR COMFORT. HOURLY ROUNDING OBSERVED. BED IN LOW POSITION. BED ALARM IN PLACE. FALL PRECAUTIONS IN PLACE. CALL LIGHT WITHIN REACH. WILL CONTINUE PLAN OF CARE.
--- NOTE | 2017-12-22 17:24 | NUR ---
NO ACUTE CHANGES THROUGHOUT SHIFT. REFER TO CHARTING. PT WORKED WITH PT AND OT TODAY-TOLERATED WELL. PT SAT UP IN THE RECLINER THIS AFTERNOON. PT UP WITH MAX ASSIST AND LIFT TO RECLINER. NEURO HERE TO SEE PT TODAY- ORDERS RECEIVED FOR MRI HEAD. QUESTIONAIRE FILLED OUT BY -SUNITA OVER THE TELEPHONE. CONTINUES TO TRACE SR ON THE TRADE MANAGER. ON RA SAT UPPER 90'S. DENIES ANY PAIN OR SHORTNESS OF BREATH. PT SLOWLY PROGRESSING TOWARDS GOALS. MEDICATIONS PER JUN. PT REPOSITIONED EVERY 2 HOURS FOR COMFORT. HOURLY ROUNDING OBSERVED. BED IN LOW POSITION. BED/CHAIR ALARM IN PLACE. FALL PRECAUTIONS IN PLACE. CALL LIGHT WTIHIN REACH. WILL CONTINUE PLAN OF CARE.
[2017-12-23] VITALS: BP 118/54
[2017-12-23 04:00] VITALS: BP 130/63
[2017-12-23 04:48] LABS: ALBUMIN 2.7 g/dL (3.4-5.0); CALCIUM 8.7 mg/dL (8.5-10.1); CREATININE 0.8 mg/dL (0.6-1.3); POTASSIUM 3.3 mmol/L (3.5-5.1); TOTAL BILIRUBIN 1.4 mg/dL (<0.1-1.0); TOTAL PROTEIN 6.4 g/dL (6.4-8.2)
--- NOTE | 2017-12-23 05:13 | NUR ---
PT ALERT ORIENTED XS 2 TO PERSON AND INTERMITTENTLY TO PLACE. FORGETFUL. TELEMETRY SHOWS SR. LSC-TL ALL PORTS FLUSHED. ROSA LEGS TUBA VIDEO TAPE DUPLICATOR IN PLACE. ON RA. TURN Q 2 HRS.
[2017-12-23 08:00] VITALS: BP 128/56
--- NOTE | 2017-12-23 08:00 | NUR ---
AM ASSESSMENT COMPLETE, DEFER TO COMPUTER CHARTING. GEAR ROOM KEEPER TRACKING SR. ALERT, ORIENTED TO SELF AND SITUATION - FORGETFUL. DENIES PAIN, DIZZINESS OR ANY DISCOMFORT AT THIS TIME. HOB ELEATED, CALL LIGHT WTIHIN REACH. BED ALARM ON FOR SAFETY. WILL MONITOR.
--- NOTE | 2017-12-23 11:48 | CON ---
[address] [address] CONSULTATION Name: ADEBAYODONATOCRAIG Aida Room: [address] IN .R.#: [id number] Admission: 12/06/17 Attend Phys: Gwendolyn Schroeder MD Discharge: Date of : 43 Report #: [id number] THIS REPORT FOR: //name// CC: Helio Garcia HISTORY OF PRESENT ILLNESS: The patient is a 72-year-old male who I am seeing at the request of his daughter. Apparently, she was concerned that he might have had a stroke. When I discussed this with the patient, he states the reason that Neurology was consulted was because he could not get in touch with his yesterday. He then went on to explain that she has some type of restriction in the spine and has been to the doctor. Looking through the notes, I see that Neurology is consulted for encephalopathy. The patient is expected to stay through and then will be discharged on Monday to long term. PAST MEDICAL HISTORY: Bladder tumor, severe coronary artery disease. PAST SURGICAL HISTORY: Coronary artery bypass graft, bioprosthetic aortic valve replacement, resection of bladder tumor. MEDICATIONS: Aspirin 81 mg daily, atorvastatin 40 mg at bedtime, Coreg 6.25 mg b.i.d., Plavix 75 mg daily, B12 1250 mcg, last administered 12/18/2017. Ferrous sulfate 325 mg at bedtime, fish oil 1000 mg b.i.d., isosorbide 30 mg daily, Lasix 40 mg b.i.d., losartan 50 mg daily, multivitamin daily, pantoprazole 40 mg b.i.d., prednisone 30 mg daily, Ranexa ER 500 mg b.i.d., senna 1 tablet b.i.d., sucralfate 1 gram b.i.d. ALLERGIES: ALUMINUM HYDROXIDE, BENZONATATE, LORATADINE, MAGNESIUM, MELATONIN, PRASUGREL, SIMETHICONE, SULFA, CALCIUM CARBONATE, MAGNESIUM CARBONATE. PHYSICAL EXAMINATION: VITAL SIGNS: Temperature 37.2, pulse rate 96, respiratory rate 18, blood pressure 153/77, bedside pulse oximetry 97% on room air. LAB WORK: White blood cell count 18.2, hemoglobin 13, hematocrit 40, MCV 100.7, platelet count 212,000. INR 1.1. Chemistry: Sodium 134, potassium 3.9, chloride 104, carbon dioxide 24, BUN 22, creatinine 0.8, GFR 95, glucose 103, calcium 8.2, magnesium 2, phosphorus 4.2, AST 110, ALT 218, alkaline phosphatase 63, albumin 5.8, prealbumin 2.3, lipase 3188, which is improved from December 20 when the lipase was 4485. IMAGING: CT scan of the head dated 12/21/2017 is negative. NEUROLOGIC: Cranial nerves 2-12 are grossly intact. Motor exam demonstrates generalized weakness. The patient [place] [address] CONSULTATION Name: CRAIG SIMON Room: [address] IN [facility]#: [id number] Admission: 12/06/17 Attend Phys: Gwendolyn Schroeder MD Discharge: Date of : 43 Report #: [id number] Atrophy is noted in the intrinsic hand muscles. He has significant weakness in the lower extremities. Reflexes are absent. Plantar responses are flexor. Coordination demonstrates no significant dysmetria; however, it was very difficult for the patient to perform ibpwdp-fr-wqwa testing. IMPRESSION: This patient may have an encephalopathy. I see no significant lateralizing signs; however, I will order an MRI of the brain without contrast. The patient has an elevated white blood cell count. This may be secondary to steroids. However, steroids in and of themselves can sometimes cause confusion. I do not see any medications that would be interfering with the patient's cognition. He has not had a documented bedside pulse oximetry since December 19 and I will ask the nurse to check this to make sure that he is not hypoxic. I thank you for your kind referral of the patient and we will continue to follow him with you. <ELECTRONICALLY SIGNED> By: Inga Shipley DO 12/23/17 1148 1143 [id number] Shipley DO /nt
[2017-12-23 12:00] VITALS: BP 116/66
[2017-12-23 16:00] VITALS: BP 115/64
--- NOTE | 2017-12-23 18:32 | NUR ---
SHOW WORKER TRACKING WITH NO CHANGE IN RHYTHM. NO CHANGE IN CONDITION AT THIS TIME FROM AM ASSESSMENT. NO COMPLAINTS OF PAIN, NAUSEA OR ANY DISCOMFORT TO NURSING, TOLERATING DIET - ASSIST WITH MEALS, BEING FEED. PARTICIPATED WITH THERAPY TODAY, WEAKNESS AND FATIGUE NOTED. CALL LIGHT WITHIN REACH. SLOWLY PROGRESSING TOWARD OUTCOME GOAL.
[2017-12-23 20:00] VITALS: BP 97/73
[2017-12-24] VITALS: BP 108/62
[2017-12-24 04:00] VITALS: BP 99/44
--- NOTE | 2017-12-24 04:47 | NUR ---
ASSUMED PT CARE AT 1930. ASSESSMENT COMPLETED CHARTED. A & O X 2-3, [id number], WOUND IS STILL BANDAGED WITH NO DRAINAGE NOTED WITH TUBE LABELLING MACHINE OPERATOR, ABLE TO MAKE SOME NEEDS KNOWN, RESTING COMFORTABLY THROUGHOUT THE NIGHT. NO PAIN NOTED. WILL CONTINUE TO MONITOR.
[2017-12-24 04:59] LABS: HEMOGLOBIN 12.9 gm/dL (14.0-18.0); MCH 32.1 pg (26.0-34.0); MCHC 32.3 g/dL (28.0-37.0); MCV 99.5 fL (80.0-100.0); MPV 8.4 fl. (7.2-11.1); RBC 4.02 mil/uL (4.50-6.00); WBC 15.9 thou/uL (4.0-11.0)
[2017-12-24 05:03] LABS: CALCIUM 8.4 mg/dL (8.5-10.1); CREATININE 0.9 mg/dL (0.6-1.3); POTASSIUM 3.8 mmol/L (3.5-5.1)
[2017-12-24 08:06] VITALS: BP 116/54
--- NOTE | 2017-12-24 09:37 | NUR ---
ASSUMED CARE OF PT THIS AM AROUND 07- AGRICULTURAL EDUCATION INSTRUCTOR IN PLACE ORDERED, TRACING SR- UPON ASSESSMENT PT NOTED TO BE RESTING IN BED- PT A&O X1-2 WITH NOTED CONFUSSION- INCONTINENT OF BOWEL, BLACK IN PLACE D/D CLEAR KATELIN URINE- BED REST IN PLACE WITH Q 2HOUR TURNS INDICATED- DIMINISHED LUNG SOUNDS, OCCASIONAL WHEEZE NOTED- PRODUCTIVE COUGH REPORTED, PT REPORTS CLOUDY SPUTUM, NOT SEEN PER THIS NURSE-RESP EVEN AND UN-LABORED- VSS, O2 SAT 96% ON RA- ABDOMEN OBESE/ROUND/NON-TENDER, BS X4 QUADS- LAST BM REPORTED X2 DAYS AGO- BLE +1 EDEMA NOTED, TUB DECORATOR INSPECTOR IN PLACE INDICATED- DRESSING NOTED TO LLE INTACT- RIGHT SUB CLAV TRIPLE LUMEN PICC NOTED INTACT WITH NO S/S INFECTION- SET ASSIST WITH FEEDING REQUIRED WITH MEALS, GOOD PO INTAKE NOTED, BS MONITORED ORDERED, SSI PRESCIBED- PT DENIES ANY C/O PAIN/DISCOMFORT AT THIS TIME- CALL LIGHT AND PERSONAL BELONGINGS WITH IN REACH- HOURLY ROUNDS IN PLACE R/T SAFETY/NEEDS- ALL NEEDS MET AT THIS TIME-WCTM
[2017-12-24 16:22] VITALS: BP 109/48
--- NOTE | 2017-12-24 16:51 | NUR ---
PT CURRENLTY RESTING IN BED- REGISTRATION OFFICER IN PLACE AND CONTINUED INDICATED, TRACING SR- RIGHT SUB CLAV PICC IN PLACE WITH NO S/S INFECTION NOTED- GOOD PO INTAKE NOTED THIS SHIFT WITH ASSISTANCE, BS MONITORED ORDERED- Q [address] AND CONTINUED INDICATED- DRESSING TO RLE CHANGED THIS SHIFT WITH PICTURES OBTAINED AND PLACED ON CHART FOR VIEWING- PICS OBTAINED AND PLACED ON CHART FOR VIEWING OF RIGHT HEEL AND BUTTOCKS INDICATED THIS SHIFT WELL- BARRIOR CREAM TO BUTTOCKS THIS SHIFT- PT DENIES ANY C/O PAIN/DISCOMFORT AT THIS TIME- CALL LIGHT ADND PERSONAL BELONGINGS WITH IN REACH- HOURLY ROUNDS IN PLACE R/T SAFETY/NEEDS- ALL NEEDS MET AT THIS TIME-WCTM
[2017-12-24 20:00] VITALS: BP 119/61
[2017-12-25] VITALS (7 sets, daily range): BP systolic 106–131; BP diastolic 41–61
--- NOTE | 2017-12-25 04:59 | NUR ---
ASSUMED PT CARE AT 1930. ASSESSMENT COMPLETED CHARTED. ABLE TO MAKE SOME NEEDS KNOWN, BEDREST WITH BARIATRIC BED AND Q2HR TURNS. NO C/O PAIN, HAD BOWEL MOVEMENT THIS MORNING. RESTING COMFORTABLY THROUGHOUT THE NIGHT. WILL CONTINUE TO MONITOR.
--- NOTE | 2017-12-25 18:01 | NUR ---
ASSUMED CARTE OF PT AT 0730. PT REMAINS A&O CALM AND COOPERATIVE BUT FORGETFUL. PT VSS ON ROOM AIR AND NO C/O PAIN OR DISTRESS TODAY. PT HAS HAD A GOOD APPETITE AND ATE GREATER THAN 75% OF ALL MEALS TODAY. PT TRACING SR ON THE MONITOR AND AND CURRENTLY RESTING IN BED WATCHING TV. HOURLY ROUNDING COMPLETED FOR PT SAFTEY AND COMFORT. NURSING WILL CONTINUE TO MONITOR.
[2017-12-26 04:00] VITALS: BP 120/61
--- NOTE | 2017-12-26 04:54 | NUR ---
ASSUMED PT CARE AT 1930. ASSESSMENT COMPLETED CHARTED. ABLE TO MAKE SOME NEEDS KNOWN, ASKED FOR PAIN MEDICATION FOR HIS LEGS. PT RESTING IN BED AT THIS TIME. PT BEDREST AT THIS TIME AND PLANNING ON D/C TO SKILLED TODAY. WILL CONTINUE TO MONITOR.
[2017-12-26 12:13] VITALS: BP 110/52
[2017-12-26 15:03] LABS: HEMATOCRIT 39.7 % (42.0-52.0); HEMOGLOBIN 12.8 gm/dL (14.0-18.0); MCH 31.8 pg (26.0-34.0); MCHC 32.3 g/dL (28.0-37.0); MCV 98.4 fL (80.0-100.0); NUCLEATED RBCS 0 /100WBC; PLATELET COUNT* 167 thou/uL (150-400); RBC 4.03 mil/uL (4.50-6.00); WBC 12.9 thou/uL (4.0-11.0)
[2017-12-26 15:09] LABS: CALCIUM 8.3 mg/dL (8.5-10.1); POTASSIUM 3.8 mmol/L (3.5-5.1)
[2017-12-26 15:14] LABS: ALBUMIN 2.5 g/dL (3.4-5.0); TOTAL BILIRUBIN 0.9 mg/dL (<0.1-1.0); TOTAL PROTEIN 6.1 g/dL (6.4-8.2)
[2017-12-26 15:32] LABS: ABSOLUTE LYMPHOCYTES 0.6 thou/uL (0.8-5.3); ABSOLUTE MONOCYTES 0.4 thou/uL (0.0-1.2); ABSOLUTE NEUTROPHILS 11.9 thou/uL (1.6-8.1)
[2017-12-26 15:33] LABS: PLATELET ESTIMATE ADEQUATE
[2017-12-26 15:34] LABS: ANISOCYTOSIS Occasional
--- NOTE | 2017-12-26 15:47 | NUR ---
JAQUAN discussed safe dc planning with pt nurse Rosa Maria (who also spoke with pt family) and Dr Valera. Pt to dc to SNF tomorrow, Monday, Dr Valera/team believe pt would not be able to participate/tolerate 3 hrs of therapy for inpt rehab therapy. JAQUAN called and spoke with Anel in admissions at [facility] who will accept pt tomorrow. Updated therapy notes to be sent to Anel. SW to continue to follow to assist with safe dc planning.
[2017-12-26 16:44] VITALS: BP 111/55
--- NOTE | 2017-12-26 18:25 | NUR ---
PT VSS THIS SHIFT. PT DUE TO DC TO FACILITY TOMORROW. BLACK CATHETER D/C AT 1600 AND NEEDS TO VOID BY 2200. PT PICC LINE NOT ABLE TO DRAW BLOOD IN ANY OF THE [address] DAY GAVE VERBAL ORDER TO D/C THE PICC LINE AND WAS OKAY WITH PT REMAINING WITHOUT IV ACCESS FOR THE REMAINDER OF HIS ADMISSION AT THIS TIME. PT TOLERATING HEART HEALTHY DIET AND STATED HE WANTS HIS TUBERGRIPS REPLACED BEFORE BED. PT AND DAUGHTER UPDATED ABOUT PT CONDITION AND HIS POTENTIAL D/C TOMORROW.
[2017-12-26 20:00] VITALS: BP 118/64
[2017-12-27] VITALS: BP 119/43
--- NOTE | 2017-12-27 03:20 | NUR ---
ASSUMED PT CARE AT 1930. ASSESSMENT COMPLETED CHARTED. ABLE TO MAKE SOME NEEDS KNOW. ON BARIATRIC BED AND Q6TNDRG WITH MINIMAL COMPLAINTS. DID CALL OUT [facility] FOR A XANAX, STATED HE HADNT ASKED FOR ONE IN A WHILE CAUSE HE HADNT FELT THE BEST. NO C/O PAIN, WILL CONTINUE TO MONITOR.
[2017-12-27 04:00] VITALS: BP 121/44
[2017-12-27 08:21] VITALS: BP 126/57
--- NOTE | 2017-12-27 10:59 | NUR ---
JAQUAN received dc notification today and followed up with Anel at [facility] who accepted and arranged for transportation at 1400. JAQUAN called and spoke with pt who is in agreement with plan. JAQUAN faxed final orders, med list, and updated therapy notes to [facility].
[2017-12-27 12:15] VITALS: BP 117/51
[2017-12-27 12:35] VITALS: BP 106/51
[2017-12-27] MEDS ORDERED: AMBIEN 5 MG TABL5 M1 PO (12:46)
[2017-12-27] MEDS ORDERED: DULCOLAX5 MG PO (12:48)
[2017-12-27] MEDS ORDERED: IPRAT-ALBUT 0.5-3 ML INH (12:52)
[2017-12-27] MEDS ORDERED: IRON325 PO (12:53)
[2017-12-27] MEDS ORDERED: HUMALOG100 UNIT/1 SUBQ (12:55)
[2017-12-27] MEDS ORDERED: PREDNISONE 10 M10 MG PO (12:57)
[2017-12-27] MEDS ORDERED: PROTONIX40 M1 PO (12:59)
--- NOTE | 2017-12-27 14:51 | NUR ---
REPORT CALLED TO EWA JOYCE AT [facility]
--- NOTE | 2017-12-27 15:23 | NUR ---
PT DC'D TO [facility] VIA AMBULANCE. PT TOOK PT BELONGINGS. CL DC'D INTACT AND PRESSURE HELD TO SITE. PRESSURE BANDAGE APPLIED TO SITE.
== END 2017-12-27 15:24 | DRG 853 ==
LOC: M.2W 07:45 → EDSTATUS 12-07 07:43 → M.SUR 12-07 08:54 → M.LAB 12-07 11:55 → M.ICU 12-07 20:20 → M.2W 12-19 14:25
PROVIDERS: Family Medicine; Internal Medicine; Internal Medicine Cardiovascular Disease; Internal Medicine Critical Care Medicine; Internal Medicine Nephrology; Internal Medicine Pulmonary Disease; Urology; ADMIT Internal Medicine
DX: A41.9 Sepsis, unspecified organism (principal); J69.0 Pneumonitis due to inhalation of food and vomit; N17.0 Acute kidney failure with tubular necrosis; J96.01 Acute respiratory failure with hypoxia; I21.4 Non-ST elevation (NSTEMI) myocardial infarction; R57.0 Cardiogenic shock; I50.43 Acute on chronic combined systolic (congestive) and diastolic (congestive) heart failure; K85.90 Acute pancreatitis without necrosis or infection, unspecified; G93.40 Encephalopathy, unspecified; K92.2 Gastrointestinal hemorrhage, unspecified; K56.7 Ileus, unspecified; E87.0 Hyperosmolality and hypernatremia; Z68.42 Body mass index [BMI] 45.0-49.9, adult; I13.0 Hypertensive heart and chronic kidney disease with heart failure and stage 1 through stage 4 chronic kidney disease, or unspecified chronic kidney disease; K75.89 Other specified inflammatory liver diseases; D49.4 Neoplasm of unspecified behavior of bladder; I25.10 Atherosclerotic heart disease of native coronary artery without angina pectoris; E78.5 Hyperlipidemia, unspecified; R31.0 Gross hematuria; Z96.653 Presence of artificial knee joint, bilateral; E66.01 Morbid (severe) obesity due to excess calories; I87.8 Other specified disorders of veins; I95.9 Hypotension, unspecified; N18.3 Chronic kidney disease, stage 3 (moderate); I25.5 Ischemic cardiomyopathy; E87.70 Fluid overload, unspecified; E11.22 Type 2 diabetes mellitus with diabetic chronic kidney disease; K31.89 Other diseases of stomach and duodenum; K75.81 Nonalcoholic steatohepatitis (NASH); E87.6 Hypokalemia; R41.89 Other symptoms and signs involving cognitive functions and awareness; Z95.1 Presence of aortocoronary bypass graft; Z95.2 Presence of prosthetic heart valve; Z82.49 Family history of ischemic heart disease and other diseases of the circulatory system; Z88.2 Allergy status to sulfonamides; Z88.8 Allergy status to other drugs, medicaments and biological substances; Z79.82 Long term (current) use of aspirin; Z79.899 Other long term (current) drug therapy

== ENCOUNTER 2018-01-21 00:24 | Inpatient (IN) | payer MEDICARE, OTHER ==
[~2018-01-21] VITALS: Ht 172.7 cm; Wt 129.0 kg
[2018-01-21] VITALS (7 sets, daily range): BP systolic 89–114; BP diastolic 38–58
--- NOTE | ~2018-01-21 | EKG ---
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
[~2018-01-21 00:24] MED LIST changes: +AMBIEN 5 MG TABL5 M1 PO; +DULCOLAX5 MG PO; +HUMALOG100 UNIT/1 SUBQ; +IPRAT-ALBUT 0.5-3 ML INH; +IPRATROPIU0.2 MG/1 M NASAL; +PREDNISONE 10 M10 MG PO; +PROAIR HFA8.5 GM NASAL; +PROTONIX40 M1 PO
[2018-01-21] MEDS ORDERED: MUCINEX1200 MG PO (00:50)
[2018-01-21 00:56] LABS: HEMATOCRIT 32.4 % (42.0-52.0); HEMOGLOBIN 10.9 gm/dL (14.0-18.0); MCH 32.6 pg (26.0-34.0); MCHC 33.8 g/dL (28.0-37.0); MCV 96.6 fL (80.0-100.0); MPV 7.1 fl. (7.2-11.1); NUCLEATED RBCS 0 /100WBC; PLATELET COUNT* 347 thou/uL (150-400); RBC 3.35 mil/uL (4.50-6.00); RDW-CV 15.7 % (10.5-14.5); WBC 9.7 thou/uL (4.0-11.0)
[2018-01-21 01:05] LABS: ANION GAP 3 mmol/L (7-16); BUN 15 mg/dL (7-18); CALCIUM 9.7 mg/dL (8.5-10.1); CHLORIDE 98 mmol/L (98-107); CO2 30 mmol/L (21-32); CREATININE 0.9 mg/dL (0.6-1.3); GLUCOSE 117 mg/dL (70-99); POTASSIUM 3.6 mmol/L (3.5-5.1); SODIUM 131 mmol/L (136-145)
[2018-01-21 01:10] LABS: APTT 31.1 Seconds (25.0-31.3); INR 1.1; PROTIME 11.2 Seconds (9.20-11.50)
[2018-01-21 01:16] LABS: ALBUMIN 2.8 g/dL (3.4-5.0); ALKALINE PHOSPHATASE 72 U/L (46-116); LIPASE 187 U/L (73-393); NT-PRO BRAIN NAT PEPTIDE 17751 pg/mL (<300); SGOT 30 U/L (15-37); SGPT 48 U/L (30-65); TOTAL BILIRUBIN 0.7 mg/dL (<0.1-1.0); TOTAL PROTEIN 6.1 g/dL (6.4-8.2); TROPONIN-I LEVEL <0.06 ng/mL (<0.06)
[2018-01-21 02:17] LABS: ABSOLUTE BASOPHILS 0.1 thou/uL (0.0-0.2); ABSOLUTE EOSINOPHILS 0.4 thou/uL (0.0-0.7); ABSOLUTE LYMPHOCYTES 0.9 thou/uL (0.8-5.3); ABSOLUTE MONOCYTES 0.6 thou/uL (0.0-1.2); ABSOLUTE NEUTROPHILS 7.8 thou/uL (1.6-8.1)
[2018-01-21 02:18] LABS: ANISOCYTOSIS 1+; PLATELET ESTIMATE ADEQUATE; POLYCHROMASIA 1+
[2018-01-21] MEDS ORDERED: SPIRONOLACTONE25 M1 PO (05:30)
[2018-01-21] MEDS ORDERED: ELIQUIS5 MG PO (05:31)
[2018-01-21] MEDS ORDERED: VITAMINC500 PO (05:32)
[2018-01-21] MEDS ORDERED: TUMS PO (05:33)
[2018-01-21] MEDS ORDERED: KEFLEX500 M1 PO (05:33)
[2018-01-21] MEDS ORDERED: ALLERGY RELIEF180 MG PO (05:34)
[2018-01-21] MEDS ORDERED: FLONASE 0.05%50 MCG NASAL (05:34)
[2018-01-21] MEDS ORDERED: KETOCONAZOLE15 GM TOP (05:35)
[2018-01-21] MEDS ORDERED: ZANTAC 150MG T150 MG PO (05:36)
[2018-01-21] MEDS ORDERED: ONDANSETRON HCL4 M2 PO (05:36)
[2018-01-21] MEDS ORDERED: TOPROL XL25 MG PO (05:39)
[2018-01-21 12:28] LABS: INR 1.1; PROTIME 11.6 Seconds (9.20-11.50)
[2018-01-21 12:33] LABS: ANION GAP 7 mmol/L (7-16); BUN 17 mg/dL (7-18); CALCIUM 9.9 mg/dL (8.5-10.1); CHLORIDE 101 mmol/L (98-107); CHOLESTEROL 120 mg/dL (<200); CO2 27 mmol/L (21-32); CREATININE 0.8 mg/dL (0.6-1.3); GLUCOSE 99 mg/dL (70-99); HDL CHOLESTEROL 36 mg/dL (>40); LDL CHOLESTEROL 70 mg/dL (<100); POTASSIUM 3.9 mmol/L (3.5-5.1); SODIUM 135 mmol/L (136-145); TC:HDL 3.3 Ratio (Not establshd); TRIGLYCERIDE 71 mg/dL (<150); VLDL 14 mg/dL (<40)
[2018-01-21 12:34] LABS: SERUM ASSESSMENT Clear
--- NOTE | 2018-01-21 14:00 | EKG ---
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1945 Requested By: Mildred Waller Order Number: [id number] MD: Jenaro Booker Measurements Intervals [place] Rate: 99 P: 73 AK: 50 QRS: 50 QRSD: 112 T: 234 QT: 348 QTc: 447 Interpretive Statements Sinus rhythm Probable left atrial enlargement Incomplete left bundle branch block Repol abnrm, severe global ischemia (LM/MVD) Compared to ECG 12/09/2017 09:17:29 Left bundle-branch block now present Possible ischemia still present Electronically Signed On 01-21-2018 14:00:24 CDT by Jenaro Booker [email or web address] <ELECTRONICALLY SIGNED> By: Alexander Booker MD, [facility] 01/21/18 1400 002 0028 Alexander Booker MD, [facility] /EPI
[2018-01-22] VITALS (7 sets, daily range): BP systolic 89–156; BP diastolic 37–84
--- NOTE | 2018-01-22 17:24 | 2DMMODE ---
[place] [address] 2 D/M-MODE ECHOCARDIOGRAM Name: CRAIG SIMON Room: [address] IN [facility]#: [id number] Admission: 01/21/18 Attend Phys: Sergio Zhu Discharge: Date of : 43 Date of Service: 01/22/18 1724 Report #: [id number] THIS REPORT FOR: //name// APPROVED REPORT Study performed: 01/22/2018 14:28:01 EXAM: Comprehensive 2D, Doppler, and color-flow Echocardiogram Patient Location: In-Patient Room #: [facility] Status: routine BSA: 2.41 HR: 893 bpm BP: 89/37 mmHg Rhythm: NSR Other Information Technically limited study due to body habitus, poor endocardial definition. Indications Aortic Valve Disease ASSESS LV FUNCTION Echo Enhancing Agent Indication: Endocardial border delineation Agent(s) / Amount(s) Used: Optison 3 cc 2D Dimensions IVSd: 12.08 (7-11mm) LVOT Diam: 20.27 (18-24mm) LVDd: 52.06 mm PWd: 11.78 (7-11mm) Ascending Ao: 33.25 (22-36mm) LVDs: 35.81 (25-40mm) Aortic Root: 27.33 mm Volumes Left Atrial Volume (Systole) LA ESV Index: 52.10 mL/m2 Aortic Valve AoV Peak Enrike.: 4.16 m/s AO Peak Gr.: 69.23 mmHg LVOT Max P.90 mmHg AO Mean Gr.: 43.15 mmHg LVOT Mean P.25 mmHg LVOT Max V: 1.21 m/s AO V2 VTI: 80.46 cm LVOT Mean V: 0.84 m/[place] [address] 2 D/M-MODE ECHOCARDIOGRAM Name: CRAIG SIMON Room: [address] IN ..#: [id number] Admission: 01/21/18 Attend Phys: Sergio Zhu Discharge: Date of : 43 Date of Service: 01/22/18 1724 Report #: [id number] PAULETTE (VTI): 0.98 cm2 LVOT V1 VTI: 24.56 cm Mitral Valve E/A Ratio: 1.74 MV Decel. Time: 142.96 ms MV E Max Enrike.: 1.23 m/s MV PHT: 41.46 ms MVA (PHT): 5.31 cm2 TDI E/Lateral E': 13.67 E/Medial E': 17.57 Medial E' Enrike.: 0.07 m/s Lateral E' Enrike.: 0.09 m/s Pulmonary Valve PV Peak Enrike.: 1.15 m/s PV Peak Gr.: 5.31 mmHg Tricuspid Valve RAP Estimate: 5.00 mmHg TR Peak Gr.: 52.87 mmHg RVSP: 57.00 mmHg PA Pressure: 57.00 mmHg Left Ventricle The left ventricle is normal size. There is global hypokinesis of the left ventricle. Regional wall motion abnormalities are noted. Mild concentric left ventricular hypertrophy. Left ventricular systolic function is moderately decreased. LVEF is 35%. The left ventricular diastolic function is normal. Right Ventricle The right ventricle is normal size. The right ventricular systolic function is normal. Atria Left atrium is moderately dilated. The right atrium size is normal. Aortic Valve Bioprosthetic aortic valve is present. Mild aortic regurgitation. 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 Mild mitral regurgitation. No evidence of mitral [place] [address] 2 D/M-MODE ECHOCARDIOGRAM Name: CRAIG SIMON Room: [address]#: [id number] Admission: 01/21/18 Attend Phys: Sergio Zhu Discharge: Date of : 43 Date of Service: 01/22/18 1724 Report #: [id number] Tricuspid Valve The tricuspid valve is normal in structure. Mild tricuspid regurgitation. Moderate pulmonary hypertension. Pulmonic Valve The pulmonary valve is normal in structure. There is no pulmonic valvular regurgitation. Great Vessels The aortic root is normal in size. IVC is normal in size and collapses >50% with inspiration. Pericardium There is no pericardial effusion. <Conclusion> The left ventricle is normal size. Mild concentric left ventricular hypertrophy. Left ventricular systolic function is moderately decreased. LVEF is 35%. The left ventricular diastolic function is normal. The right ventricle is normal size. Left atrium is moderately dilated. The right atrium size is normal. Bioprosthetic aortic valve is present. 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 Mild mitral regurgitation. IVC is normal in size and collapses >50% with inspiration. There is no pericardial effusion. <ELECTRONICALLY SIGNED> By: Helio Malone MD, FACC 01/22/181723 23 23 Helio Malone MD, FACC /INF
[2018-01-23] VITALS: BP 98/43
[2018-01-23 04:00] VITALS: BP 111/59
[2018-01-23 05:23] LABS: HEMATOCRIT 29.2 % (42.0-52.0); HEMOGLOBIN 9.8 gm/dL (14.0-18.0); MCH 32.3 pg (26.0-34.0); MCHC 33.6 g/dL (28.0-37.0); MCV 96.2 fL (80.0-100.0); MPV 7.5 fl. (7.2-11.1); RBC 3.04 mil/uL (4.50-6.00); RDW-CV 15.7 % (10.5-14.5); WBC 9.2 thou/uL (4.0-11.0)
[2018-01-23 05:58] LABS: ALBUMIN 2.4 g/dL (3.4-5.0); CALCIUM 8.8 mg/dL (8.5-10.1); CREATININE 1.7 mg/dL (0.6-1.3); MAGNESIUM 2.1 mg/dL (1.8-2.4); POTASSIUM 3.8 mmol/L (3.5-5.1); TOTAL BILIRUBIN 0.8 mg/dL (<0.1-1.0); TOTAL PROTEIN 6.3 g/dL (6.4-8.2)
[2018-01-23 08:45] VITALS: BP 99/45
[2018-01-23 12:00] VITALS: BP 110/64
[2018-01-23 15:39] VITALS: BP 114/55
[2018-01-23 20:00] VITALS: BP 115/59
[2018-01-24] VITALS (12 sets, daily range): BP systolic 113–137; BP diastolic 50–74
[2018-01-24 05:31] LABS: HEMATOCRIT 29.3 % (42.0-52.0); HEMOGLOBIN 9.9 gm/dL (14.0-18.0); MCH 32.4 pg (26.0-34.0); MCHC 33.7 g/dL (28.0-37.0); MCV 96.2 fL (80.0-100.0); MPV 7.5 fl. (7.2-11.1); RBC 3.05 mil/uL (4.50-6.00); RDW-CV 15.5 % (10.5-14.5); WBC 8.6 thou/uL (4.0-11.0)
[2018-01-24 05:42] LABS: CREATININE 0.9 mg/dL (0.6-1.3); MAGNESIUM 2.1 mg/dL (1.8-2.4); POTASSIUM 4.1 mmol/L (3.5-5.1)
[2018-01-24 05:45] LABS: APTT 32.7 Seconds (25.0-31.3); INR 1.1; PROTIME 11.4 Seconds (9.20-11.50)
[2018-01-25] VITALS: BP 135/76
[2018-01-25 04:00] VITALS: BP 133/67
[2018-01-25 05:01] LABS: HEMATOCRIT 25.9 % (42.0-52.0); HEMOGLOBIN 8.8 gm/dL (14.0-18.0); MCH 32.6 pg (26.0-34.0); MCHC 34.1 g/dL (28.0-37.0); MCV 95.5 fL (80.0-100.0); MPV 7.3 fl. (7.2-11.1); RBC 2.71 mil/uL (4.50-6.00); RDW-CV 16.3 % (10.5-14.5); WBC 9.5 thou/uL (4.0-11.0)
[2018-01-25 05:12] LABS: ALBUMIN 2.3 g/dL (3.4-5.0); CALCIUM 8.4 mg/dL (8.5-10.1); TOTAL PROTEIN 5.7 g/dL (6.4-8.2)
[2018-01-25 05:20] LABS: TROPONIN-I LEVEL 2.37 ng/mL (<0.06)
[2018-01-25 07:45] VITALS: BP 114/67
--- NOTE | 2018-01-25 10:50 | CARD ---
[address] [address] CARDIAC CATH REPORT Name: CRAIG SIMON Room: [address] IN [facility]#: [id number] Admission: 01/21/18 Attend Phys: Sergio Caruso, Discharge: Date of : 43 Report #: [id number] THIS REPORT FOR: //name// APPROVED REPORT Study performed: 01/24/2018 13:41:18 Patient Details Patient Status: In-Patient Room #: 211 The patient is a 72 year-old male Event Personnel Helio Malone Health Researcher, Eliza Julio RN Window Cleaner, Kaylene Leger RTR Monitor, Satya Jo Scrub Procedures Performed Art Access - R radial artery Coronary Angiography Only CORANG PAVAN Place w/wo Plasty Single LAD; angioplasty with stenting of the interposition graft between the diagonal and first marginal branch Indication Non-STEMI Risk Factors Hypercholesterolemia, Coronary Artery DiseaseHypertension Previous Procedures/Diagnoses Previous CABGPrevious PCI, Previous LA Admission/Lab Medications/Medications given during procedure Platelet Aff. Inhib., Heparin; Angiomax bolus and infusion Procedure Narrative The patient was brought electively to the Cardiac Catheterization Laboratory and was prepped and draped in a sterile manner. The right wrist was infiltrated with 2% Lidocaine subcutaneous anesthesia. A Slender Glidesheath sheath was inserted into the right radial artery. Coronary angiography was performed using coronary diagnostic catheters. The left coronary system was accessed and visualized with a Guide AL ,075 catheter. The patient tolerated the procedure well and there were no complications associated with the procedure. There was no hematoma. Intraoperative Conscious Sedation [address] [address] CARDIAC CATH REPORT Name: CRAIG SIMON Room: [address]#: [id number] Admission: 01/21/18 Attend Phys: Sergio Caruso, Discharge: Date of : 43 Report #: [id number] There was no sedation given Fluoro Time: 39.8 minutes Dose: DAP [id number] cGycm2 5917 mGy Contrast Type and Amount: Visipaque 435 ml [place] Artery Percent Stenosis Previously defined widely patent LYON graft to the LAD; 80% stenosis of the interposition graft between the diagonal and first marginal with 70% narrowing of the interposition graft between the second marginal and distal circumflex Diagnostic Cath Left Main 0% narrowing LAD 90% proximal stenosis with total mid vessel occlusion Circumflex 50% calcified proximal narrowing Right Coronary Previously defined total occlusion of the small vessel Hemodynamics The aortic pressure is 106/59 mmHg with a mean of 79 mmHg. PCI Technique Lesion Percutaneous coronary intervention was performed on the interposition graft between the diagonal and first marginal. The lesion stenosis prior to intervention was 80% with MICHAEL 2 flow. A 6FR AL .075 100CM Guide Catheter was used to engage the ostium. A ProwaterFlex 180CM Interventional Guidewire was used to cross the lesion. BALLOON DILATION A Balloon catheter Mini Trek RX 2.0 X 8 was inserted and inflated up to 14.00atm for 13seconds. A balloon catheter 3.0x12 EA Trek was insterted and inflated up to 14:00 gena for 14 seconds. Inflated 15atm for 10 seconds, balloon inflated for 16atm fir 10 seconds, balloon inflated for 16atm for 12 seconds. EA NC Trek RX 3.0x8 balloon was inserted and inflated for 18atm for 13 seconds, balloon inflated for 18:00 gena fir 9 seconds. EA NC Trek RX balloon catheter was inserted and was inflated up to 24:00 gena for 11 seconds, balloon was inflated for 24:00atm for 10 seconds, balloon was inflated for 22:00 gena for 8 seconds. STENT DEPLOYMENT A drug-eluting stent Charles RX Stent 2.25X8mm was inserted and inflated up to 20.00atm for 14seconds. Additional Inflation: 22.00atm for 7seconds. Additional Inflation: 24.00atm [place] 8seconds. [place] [address] CARDIAC CATH REPORT Name: CRAIG SIMON Room: [address] IN ..#: [id number] Admission: 01/21/18 Attend Phys: Sergio Caruso, Discharge: Date of : 43 Report #: [id number] POST STENT DEPLOYMENT BALLOON DILATION A Balloon catheter NC Trek RX 2.75 X 8 was inserted and inflated up to 24.00atm for 9seconds. Additional Inflation: 26.00atm for 10seconds. Final angiography reveals 10 % stenosis with MICHAEL 3 flow. PCI Technique Lesion 2 Percutaneous Coronary Intervention was performed on the proximal left anterior descending artery segment. The lesion stenosis prior to intervention was 90% with MICHAEL 3 flow. A 6FR AL .075 100CM Guide Catheter was used to engage the ostium. A ProwaterFlex 180CM Interventional Guidewire was used to cross the lesion. Balloon Dilation A Balloon catheter NC Trek RX 3.0 X 8 was inserted and inflated up to 20.00atm for 6seconds. Additional Inflation: 22.00atm for 8seconds. Stent Deployment A drug-eluting stent Charles RX Stent 2.0X8mm was inserted and inflated up to 22.00atm for 8seconds. Additional Inflation: 24.00atm for 9seconds. Post Stent Deployment Balloon Dilation A Balloon catheter NC Trek RX 3.0x8 was inserted and inflated up to 25:00atm for 8seconds. Final angiography reveals 10 % stenosis with MICHAEL 3 flow. Conclusion #1 significant coronary artery disease characterized by the following: A 90% proximal LAD stenosis with total mid vessel occlusion B 50% proximal circumflex calcified stenosis C previously defined total occlusion of the small right coronary artery #2 graft study characterized by the following: A previously defined widely patent [place] [address] CARDIAC CATH REPORT Name: CRAIG SIMON Room: [address] IN [facility]#: [id number] Admission: 01/21/18 Attend Phys: Sergio Caruso, Discharge: Date of : 43 Report #: [id number] B 80% stenosis of the interposition graft between the diagonal and the first marginal with 70% narrowing of the interposition graft between the second marginal and distal circumflex #3 normal systemic pressure throughout the study #4 successful percutaneous coronary intervention with deployment of a drug-eluting stent at site of 80% stenosis of the interposition graft between the diagonal and first marginal with 10% residual narrowing and MICHAEL-3 flow the distal circulation #5 successful percutaneous coronary intervention with deployment of drug-eluting stent at site of 90% proximal LAD stenosis with 10% residual narrowing and MICHAEL-3 flow the distal vessel Recommendations Daily ASA with Plavix for at least one year Cardiac Risk Reduction Program Aggressive Medical Therapy Medications Administered Clopidogrel Diagnostic Cath Approved by: Helio Malone MD Date/Time: 01/25/2018 10:47:27 <ELECTRONICALLY SIGNED> By: Helio Malone MD, FACC 01/25/18 1050 1050 1050Helio Malone MD, FACC /INF
[2018-01-25 11:36] VITALS: BP 117/64
[2018-01-25 15:27] VITALS: BP 129/69
--- NOTE | 2018-01-25 16:38 | EKG ---
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1945 Requested By: Helio Malone Order Number: [id number] MD: Helio Malone Measurements Intervals [place] Rate: 106 P: 0 [place]: 150 QRS: 54 QRSD: 111 T: 233 QT: 320 QTc: 425 Interpretive Statements Sinus tachycardia Diffuse nonspecific st-t changes, consider ischemia Compared to ECG 01/21/2018 00:28:46 Sinus rate has increased Possible ischemia still present Electronically Signed On 01-25-2018 16:38:40 CDT by Helio Malone [email or web address] <ELECTRONICALLY SIGNED> By: Helio Malone MD, [facility] 01/25/18 1638 1728 172 Helio Malone MD, [facility] /EPI
--- NOTE | 2018-01-25 16:45 | EKG ---
[place] [address] ELECTROCARDIOGRAM REPORT Name: CRAIG SIMON Room: [address] ADM IN M.R.#: [id number] Admission: 01/21/18 Attend Phys: Sergio Caruso, Discharge: Date of : 43 Report #: [id number] THIS REPORT FOR: //name// [facility] Test Date: 2018-01-25 Test Time: 07:03:24 Pat Name: CRAIG SIMON Department: Room: [address] Gender: M Rod Hanger: WLREBECCA : 1945 Requested By: Helio Malone Order Number: [id number] MD: Helio Malone Measurements Intervals [place] Rate: 85 P: 86 VT: 186 QRS: 41 QRSD: 112 T: 191 QT: 402 QTc: 478 Interpretive Statements Sinus rhythm Incomplete left bundle branch block Borderline prolonged QT interval Baseline wander in lead(s) V1 Compared to ECG 01/21/2018 00:28:46 Early repolarization no longer present Electronically Signed On 01-25-2018 16:45:38 CDT by Helio Malone [email or web address] <ELECTRONICALLY SIGNED> By: Helio Malone MD, FACC 01/25/18 1645 0703 0703 Helio Malone MD, [facility] /EPI
[2018-01-25 20:00] VITALS: BP 116/58
[2018-01-26] VITALS: BP 102/48
[2018-01-26 04:00] VITALS: BP 143/68
[2018-01-26 04:30] LABS: HEMATOCRIT 27.1 % (42.0-52.0); HEMOGLOBIN 9.2 gm/dL (14.0-18.0); MCH 32.3 pg (26.0-34.0); MCHC 33.8 g/dL (28.0-37.0); MCV 95.5 fL (80.0-100.0); MPV 7.3 fl. (7.2-11.1); NUCLEATED RBCS 0 /100WBC; PLATELET COUNT* 354 thou/uL (150-400); RBC 2.84 mil/uL (4.50-6.00); RDW-CV 15.7 % (10.5-14.5); WBC 10.5 thou/uL (4.0-11.0)
[2018-01-26 04:45] LABS: CALCIUM 8.3 mg/dL (8.5-10.1); CREATININE 0.9 mg/dL (0.6-1.3); POTASSIUM 3.8 mmol/L (3.5-5.1)
[2018-01-26 06:45] LABS: ABSOLUTE BASOPHILS 0.2 thou/uL (0.0-0.2); ABSOLUTE EOSINOPHILS 0.7 thou/uL (0.0-0.7); ABSOLUTE LYMPHOCYTES 0.6 thou/uL (0.8-5.3); ABSOLUTE MONOCYTES 0.8 thou/uL (0.0-1.2); ABSOLUTE NEUTROPHILS 8.1 thou/uL (1.6-8.1); METAMYELOCYTES 3 %
[2018-01-26 06:47] LABS: OVALOCYTES 1+; TARGET CELLS 2+
[2018-01-26 06:48] LABS: HYPOCHROMASIA 2+; MACROCYTES 1+; POLYCHROMASIA 1+
[2018-01-26 06:49] LABS: PLATELET ESTIMATE ADEQUATE
[2018-01-26 08:18] VITALS: BP 126/67
[2018-01-26 11:57] VITALS: BP 102/58
--- NOTE | 2018-02-19 09:08 | CON ---
[address] [address] CONSULTATION Name: CRAIG SIMON Room: [address] [place].#: [id number] Admission: 01/21/18 Attend Phys: Sergio Caruso, Discharge: 01/26/18 Date of : 43 Report #: [id number] THIS REPORT FOR: //name// CC: [facility]wal [facility] Caruso HISTORY OF PRESENT ILLNESS: I was asked by Dr. Caruso to see this 72-year-old white male in Cardiology consultation for evaluation and treatment of chest pain with troponin elevation and a probable nza-JF-[id number] elevation ID. This man has known coronary artery disease status post coronary artery bypass graft surgery and status post multiple coronary stents. He is known to have severe complicated coronary anatomy. He does have a history of hyperlipidemia, essential hypertension, ischemic cardiomyopathy, congestive heart failure and possible diabetes that is non-insulin dependent and apparently diet controlled. He is also status post aortic valve replacement. He tells me that he has had a number of things going on recently including having had a stent 2 weeks ago at [facility] in his coronary artery and stent 2 weeks before that at [facility]. He also tells me that he has been seen at [facility] for possible TAVR. He has had a previous aortic valve replacement with a bioprosthetic. He is not sure whether it is of bovine or porcine and it is apparently closing up, he states. His previous aortic valve replacement was done in the traditional transthoracic fashion. He had an episode of chest pain lasting an hour at about 11:00 at night, a couple of nights ago. He responded to one nitroglycerin. It was his usual chest pain. He had another episode last night at about 1:00 in the morning that lasted for 2 hours in spite of 3 nitroglycerin and a pain pill. His previous one lasted about an hour. His coronary pain is a tightness in his left armpit. It is a 2-3 on a scale of 10. It is a pressure sensation as well. It is not worse with activity or better with rest. It typically occurs at night at rest. He denies shortness of breath with it. He has not had nausea or vomiting with it or diaphoresis with it. There is no relationship to food. Nitroglycerin may or may not make it better. He often has to take more than one nitroglycerin. The pain does not radiate. Note is that he was here a couple of weeks ago as well for a procedure. He was bridged with Integrilin. He was taken off his Plavix. He said to be allergic to both, Brilinta and Effient; however, he states the allergy is bleeding. He may have had a rash with Effient also. He does have chronic dyspnea on exertion, but he has somewhat morbidly obese and weighs 295 pounds. He is 5 feet 8 inches tall. He denies orthopnea or PND but does have edema. He has not had syncope. He does not smoke and never smoked. He does have high cholesterol. He claims he does not have diabetes but in the medical record, he said to have diet-controlled diabetes. He does have high blood pressure. There is a family history of heart disease and a half-brother. He does not have kidney disease. He has not had carotid vascular disease or peripheral vascular disease. He has never had a stroke or TIA. He denies claudication. He does have open wounds, however. Note his aortic valve replacement was in 2012 at [facility]. [address] [address] CONSULTATION Name: CRAIG SIMON Room: [address]#: [id number] Admission: 01/21/18 Attend Phys: Sergio García Mollydillan, Discharge: 01/26/18 Date of : 43 Report #: [id number] HOME MEDICATIONS: Alprazolam 1 mg at bedtime, apixaban 5 mg b.i.d., atorvastatin 40 mg at bedtime, cephalexin 500 mg t.i.d., Plavix 75 mg daily, fexofenadine 180 mg daily, Flonase nasal spray at bedtime, Lasix 40 mg b.i.d., Atrovent nasal daily, DuoNeb q. 4 hours while awake, Imdur 30 mg at bedtime, Cozaar 50 mg daily, metoprolol 25 mg daily, Protonix 40 mg b.i.d., potassium 20 mEq daily, ranitidine 300 mg daily, Ranexa 1000 mg b.i.d., spironolactone 12.5 mg daily and Carafate 1 g b.i.d. SOCIAL HISTORY: He is , does not smoke, drink or use illegal drugs. FAMILY HISTORY: He does not know of any significant family history of illnesses. ALLERGIES: He has a long list of allergies including MYLANTA, MELATONIN, SULFA, TESSALON PERLES, LORATADINE, PRASUGREL and TICAGRELOR. REVIEW OF SYSTEMS: Positive for erectile dysfunction, chest discomfort, shortness of breath with exercise, extremity edema, seasonal allergies and medical allergies. Otherwise, his review of systems is negative for some 35 different complaints in 14 different system categories including central nervous system, general, respiratory, cardiovascular, endocrine, gastrointestinal, genitourinary, hematologic, lymphatic, allergic, immunologic, psychiatric, musculoskeletal, skin, eyes, ears, nose, mouth and throat. Please see review of system form for details and negatives in review of systems. PHYSICAL EXAMINATION: GENERAL: He presents as well-developed, well-nourished, obese white male in no acute distress. VITAL SIGNS: Pulse was 81 and regular, blood pressure 106/50, respirations 18 and regular and temperature is 98.1. HEENT: His head was atraumatic. Eyes clear. NECK: Supple. There is no jugular venous distention or hepatojugular reflux. Thyroid is not enlarged. There is no adenopathy. SKIN: Warm and dry. Mucous membranes are moist. LUNGS: Clear to auscultation and percussion. HEART: Revealed normal first and second heart sounds. There is soft S4. There is no S3. There are no murmurs, rubs, thrills, heaves or gallops. PMI is not displaced. Rhythm is regular, rate is about 80. ABDOMEN: Soft, flat and nontender but obese. There are no palpable masses and no organomegaly. EXTREMITIES: Reveal no cyanosis or clubbing. There is trace edema. NEUROLOGICAL: The patient mentated normally, talked normally, moved all extremities normally. RADIOLOGICAL DATA: His EKG shows normal sinus rhythm [place] [address] CONSULTATION Name: CRAIG SIMON Room: [address]#: [id number] Admission: 01/21/18 Attend Phys: Sergio Caruso, Discharge: 01/26/18 Date of : 43 Report #: [id number] abnormalities that are suspicious for ischemia, but it is really unchanged from multiple EKGs going back all the way to December 06. Possible incomplete left bundle. There is possible left atrial enlargement. Chest x-ray was negative. I believe he had a CT of the chest that was also negative. LABORATORY DATA: He had an initial troponin of 0.06. A subsequent of 0.06 and then, the third one of 0.11. Note his NT-pro-BNP was 17,751. IMPRESSION: 1. Chest pain was a minimal troponin elevation and possible qzy-PY-kbzazdq elevation myocardial infarction. 2. Coronary artery disease. 3. Status post coronary bypass graft surgery. 4. Status post coronary stents. 5. Hyperlipidemia. 6. Essential hypertension. 7. Ischemic cardiomyopathy. 8. Congestive heart failure that may be mildly decompensated. 9. Possible ctj-kljjdpp-gvpnrpjtg diabetes mellitus, is being treated with diet only. 10. Status post bioprosthetic aortic valve resection. 11. Put in for an echo on him. RECOMMENDATIONS: I have discussed him with Dr. Malone. He wants to see the recent films. Dr. Malone wants to look at his films from [facility] before proceeding with a catheterization. In the meantime, we will treat him aggressively medically. He is already on Plavix. He is also on apixaban apparently at home. We were going to find out what that is for. I will increase his beta car and increase his nocturnal nitrate dose as well. Thank you very much for asking me to see the patient. If any questions, please feel free to contact me. Additionally, I think we will try to diurese him a bit given his BNP of 17,000. <ELECTRONICALLY SIGNED> By: Solomon Schaffer MD, FACC 02/19/18 [id number] [id number]. Jenaro Booker MD, FACC /nt
== END 2018-01-26 13:00 | DRG 246 ==
LOC: M.ERS 00:24 → M.2W 03:13 → M.TBA-ER 03:13 → M.2W 04:42
PROVIDERS: Internal Medicine; Nurse Practitioner Family; Personal Emergency Response Attendant; ADMIT Family Medicine
DX: I25.110 Atherosclerotic heart disease of native coronary artery with unstable angina pectoris (principal); I21.4 Non-ST elevation (NSTEMI) myocardial infarction; G92 Toxic encephalopathy; N17.0 Acute kidney failure with tubular necrosis; E44.1 Mild protein-calorie malnutrition; Z68.41 Body mass index [BMI] 40.0-44.9, adult; I50.22 Chronic systolic (congestive) heart failure; E66.01 Morbid (severe) obesity due to excess calories; Z96.653 Presence of artificial knee joint, bilateral; E78.5 Hyperlipidemia, unspecified; E11.9 Type 2 diabetes mellitus without complications; I25.5 Ischemic cardiomyopathy; I87.2 Venous insufficiency (chronic) (peripheral); I35.0 Nonrheumatic aortic (valve) stenosis; I48.91 Unspecified atrial fibrillation; I11.0 Hypertensive heart disease with heart failure; G47.33 Obstructive sleep apnea (adult) (pediatric); R09.02 Hypoxemia; Z95.2 Presence of prosthetic heart valve; Z95.1 Presence of aortocoronary bypass graft; I25.2 Old myocardial infarction; Z95.5 Presence of coronary angioplasty implant and graft; Z95.820 Peripheral vascular angioplasty status with implants and grafts; Z88.2 Allergy status to sulfonamides; Z88.8 Allergy status to other drugs, medicaments and biological substances; Z82.49 Family history of ischemic heart disease and other diseases of the circulatory system

== ENCOUNTER 2018-01-31 10:30 | Inpatient (IN) | payer MEDICARE, OTHER ==
[~2018-01-31] VITALS: Ht 172.7 cm; Wt 124.7 kg
--- NOTE | ~2018-01-31 | EKG ---
[place] [address] ELECTROCARDIOGRAM REPORT Name: CRAIG SIMON Room: [address] ADM IN M.R.#: [id number] Admission: 01/31/18 Attend Phys: Kendall Willingham MD Discharge: Date of : 43 Report #: [id number] THIS REPORT FOR: //name// [facility] Test Date: 2018-02-04 Test Time: 15:29:21 Pat Name: CRAIG SIMON Department: Room: [address] Gender: M Clinical Education Assistant: MARITZA : 1945 Requested By: Sergio Caruso Order Number: [id number] Reading MD: Measurements Intervals [place] Rate: 93 P: TN: QRS: 74 QRSD: 130 T: 267 QT: 395 QTc: 492 Interpretive Statements Accelerated junctional rhythm Probable LVH with secondary repol abnrm ST depr, consider ischemia, inferior leads Borderline prolonged QT interval Artifact in lead(s) I,III,aVR,aVL and baseline wander in lead(s) V1,V2,V3,V6 Compared to ECG 01/31/2018 10:36:25 Accelerated junctional rhythm now present Possible ischemia now present Sinus tachycardia no longer present [email or web address] By: 1529 1529 Epiphany Ep[facility]any, /TARA
[~2018-01-31 10:30] MED LIST changes: +ALLERGY RELIEF180 MG PO; +ELIQUIS5 MG PO; +KEFLEX500 M1 PO; +SPIRONOLACTONE25 M1 PO; +TOPROL XL25 MG PO; +TUMS PO; +ZANTAC 150MG T150 MG PO
[2018-01-31 10:33] VITALS: BP 152/75
[2018-01-31 11:22] LABS: URINE BILIRUBIN NEGATIVE (Negative); URINE BLOOD NEGATIVE (Negative); URINE CLARITY CLEAR; URINE COLOR DARK YELLOW; URINE GLUCOSE-RANDOM NEGATIVE (Negative); URINE KETONES NEGATIVE (Negative); URINE LEUKOCYTES-REFLEX TRACE (Negative); URINE NITRITE-REFLEX NEGATIVE (Negative); URINE PROTEIN TRACE (Negative); URINE UROBILINOGEN 0.2 E.U./dl (0.2-1.0)
[2018-01-31 11:23] LABS: HEMATOCRIT 30.3 % (42.0-52.0); HEMOGLOBIN 9.7 gm/dL (14.0-18.0); MCH 30.9 pg (26.0-34.0); MCV 96.4 fL (80.0-100.0); MPV 7.3 fl. (7.2-11.1); NUCLEATED RBCS 0 /100WBC; PLATELET COUNT* 412 thou/uL (150-400); RBC 3.15 mil/uL (4.50-6.00); RDW-CV 16.2 % (10.5-14.5)
[2018-01-31 11:28] LABS: CALCIUM 8.9 mg/dL (8.5-10.1); CREATININE 0.9 mg/dL (0.6-1.3); POTASSIUM 4.3 mmol/L (3.5-5.1)
[2018-01-31 11:38] LABS: ALBUMIN 2.6 g/dL (3.4-5.0); MAGNESIUM 1.7 mg/dL (1.8-2.4); TOTAL BILIRUBIN 0.5 mg/dL (<0.1-1.0); TOTAL PROTEIN 6.8 g/dL (6.4-8.2); TROPONIN-I LEVEL 0.15 ng/mL (<0.06)
[2018-01-31 11:42] LABS: SQUAMOUS 0-3 Few /LPF (0-3); URINE WBC-REFLEX 6-15 Few /HPF (0-5)
[2018-01-31 11:43] LABS: BACTERIA-REFLEX 1-9 Few /HPF (None Seen); URINE RBC 0-2 Rare /HPF (0-2)
[2018-01-31 11:44] LABS: BE -1.5 mmol/L (-2 to +3); HCO3 21.6 mmol/L (22.0-26.0); PCO2 30.9 mmHg (35.0-45.0); PO2 107.2 mmHg (75.0-100.0); pH 7.463 (7.340-7.450)
[2018-01-31 11:44] LABS: CRYSTALS None Seen /LPF (None Seen); HYALINE CASTS 0-3 Few /LPF (None Seen)
[2018-01-31 11:45] LABS: MUCUS 0-3 Light strn/LPF (None Seen)
[2018-01-31 11:58] LABS: ABSOLUTE BASOPHILS 0.1 thou/uL (0.0-0.2); ABSOLUTE EOSINOPHILS 0.5 thou/uL (0.0-0.7); ABSOLUTE LYMPHOCYTES 0.8 thou/uL (0.8-5.3); ABSOLUTE MONOCYTES 0.6 thou/uL (0.0-1.2)
[2018-01-31 11:59] LABS: LARGE PLATELETS OCCASIONAL; PLATELET ESTIMATE INCREASED; POLYCHROMASIA 1+
[2018-01-31 12:00] LABS: MACROCYTES 1+; OVALOCYTES Occasional; POIKILOCYTOSIS 1+
[2018-01-31 12:01] LABS: GIANT PLATELETS RARE
[2018-01-31 12:34] LABS: APTT 27.9 Seconds (25.0-31.3); INR 1.1; PROTIME 10.8 Seconds (9.20-11.50)
[2018-01-31 14:36] VITALS: BP 121/53
[2018-01-31 14:45] VITALS: BP 126/68
[2018-01-31 20:00] VITALS: BP 116/48
[2018-02-01] VITALS: BP 94/47
[2018-02-01 04:00] VITALS: BP 90/39
[2018-02-01 04:58] LABS: ABSOLUTE BASOPHILS 0.1 thou/uL (0.0-0.2); ABSOLUTE EOSINOPHILS 0.5 thou/uL (0.0-0.7); ABSOLUTE NEUTROPHILS 8.3 thou/uL (1.6-8.1); EOSINOPHILS 4.3 %; HEMATOCRIT 28.3 % (42.0-52.0); HEMOGLOBIN 9.3 gm/dL (14.0-18.0); LYMPHOCYTES 9.6 %; MCH 31.7 pg (26.0-34.0); MONOCYTES 9.1 %; MPV 7.3 fl. (7.2-11.1); NUCLEATED RBCS 0 /100WBC; PLATELET COUNT* 417 thou/uL (150-400); RBC 2.95 mil/uL (4.50-6.00); RDW-CV 16.6 % (10.5-14.5); WBC 10.9 thou/uL (4.0-11.0)
[2018-02-01 05:09] LABS: CALCIUM 8.7 mg/dL (8.5-10.1); CREATININE 0.9 mg/dL (0.6-1.3); POTASSIUM 3.6 mmol/L (3.5-5.1)
[2018-02-01 08:05] VITALS: BP 115/67
--- NOTE | 2018-02-01 11:07 | EKG ---
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1945 Requested By: Kendall Willingham Order Number: [id number] Reading MD: Juan Denson Measurements Intervals [place] Rate: 171 P: NV: QRS: 54 QRSD: 185 T: QT: 353 QTc: 596 Interpretive Statements sinus tachycardia nonspecific intraventricular conduction defect Artifact in lead(s) II,III,aVF,V1,V2,V3,V4,V5,V6 Compared to ECG 01/25/2018 07:03:24 Sinus rhythm no longer present Electronically Signed On 02-01-2018 11:06:50 CDT by Juan Denson [email or web address] <ELECTRONICALLY SIGNED> By: Juan Denson MD, FACC 02/01/18 1106 1036 1036 Juan Denson MD, [facility] /EPI
[2018-02-01 11:27] VITALS: BP 108/50
[2018-02-01 15:53] VITALS: BP 104/50
[2018-02-01 20:00] VITALS: BP 118/61
[2018-02-02] VITALS (7 sets, daily range): BP systolic 93–117; BP diastolic 42–64
[2018-02-02 05:02] LABS: CREATININE 0.8 mg/dL (0.6-1.3); MAGNESIUM 1.7 mg/dL (1.8-2.4); POTASSIUM 3.9 mmol/L (3.5-5.1)
[2018-02-03] VITALS: BP 100/54
[2018-02-03 04:00] VITALS: BP 98/49
[2018-02-03 04:49] LABS: HEMATOCRIT 30.7 % (42.0-52.0); MCH 31.3 pg (26.0-34.0); MCHC 32.5 g/dL (28.0-37.0); MCV 96.2 fL (80.0-100.0); MPV 7.5 fl. (7.2-11.1); RBC 3.2 mil/uL (4.50-6.00); RDW-CV 16.3 % (10.5-14.5); WBC 8.9 thou/uL (4.0-11.0)
[2018-02-03 05:08] LABS: ALBUMIN 2.7 g/dL (3.4-5.0); CALCIUM 8.9 mg/dL (8.5-10.1); CREATININE 1.1 mg/dL (0.6-1.3); MAGNESIUM 1.8 mg/dL (1.8-2.4); POTASSIUM 4.2 mmol/L (3.5-5.1); TOTAL BILIRUBIN 0.6 mg/dL (<0.1-1.0); TOTAL PROTEIN 6.1 g/dL (6.4-8.2)
[2018-02-03 08:19] VITALS: BP 128/66
[2018-02-03 12:04] VITALS: BP 110/56
[2018-02-03 15:54] VITALS: BP 114/57
[2018-02-03 19:40] VITALS: BP 91/58
[2018-02-04] VITALS (8 sets, daily range): BP systolic 90–125; BP diastolic 46–65
[2018-02-04 04:58] LABS: HEMATOCRIT 29.4 % (42.0-52.0); HEMOGLOBIN 9.7 gm/dL (14.0-18.0); MCHC 33.1 g/dL (28.0-37.0); MCV 96.7 fL (80.0-100.0); MPV 7.3 fl. (7.2-11.1); RBC 3.04 mil/uL (4.50-6.00); RDW-CV 16.9 % (10.5-14.5); WBC 9.6 thou/uL (4.0-11.0)
[2018-02-04 05:17] LABS: CALCIUM 8.8 mg/dL (8.5-10.1); CREATININE 1.2 mg/dL (0.6-1.3); MAGNESIUM 1.8 mg/dL (1.8-2.4); POTASSIUM 3.9 mmol/L (3.5-5.1)
--- NOTE | 2018-02-04 15:12 | CON ---
[address] [address] CONSULTATION Name: ADEBAYODONATOCRAIG Aida Room: [address] IN .R.#: [id number] Admission: 01/31/18 Attend Phys: Kendall Willingham MD Discharge: Date of : 43 Report #: [id number] THIS REPORT FOR: //name// CC: Helio Willingham DATE OF SERVICE: 01/31/2018 TYPE OF REPORT: Cardiology consultation. HISTORY OF PRESENT ILLNESS: The patient is a 72-year-old white male who was admitted complaining of lower extremity edema. The patient has an extensive and complicated past medical history. The history is obtained from the patient as well as some of his old records. The patient underwent multivessel coronary artery bypass surgery and aortic valve replacement using tissue valve at [facility] in 2012. At that time, he had a LYON graft to the LAD, vein graft to the diagonal, first and second marginal branches and to the distal posterior descending artery. Postoperatively, he actually developed AFib. Repeat heart catheterization in 2014 showed the vein graft to the diagonal and circumflex was chronically occluded. He has had multiple stents since that time including stents in the diagonal artery, a portion of the vein graft between the diagonal and circumflex and LAD. He was actually just admitted to [facility] in December with unstable angina. He had repeat heart catheterization from the left radial artery. He was found to have severe round valley 3-vessel disease. All the vein grafts were occluded. There was a patent LYON graft to the LAD. There was a portion of the vein graft that went from the diagonal to the circumflex that was patent; however, there was a distal 70% stenosis. He had a stent placed in the circumflex. The patient was then just admitted to [facility] last week by Dr. Malone. He had a repeat cardiac catheterization 10 days ago here at [facility] by Dr. Malone from the right radial artery. There was a patent LYON graft to the LAD, 80% stenosis of the portion of the vein graft between the diagonal and marginal artery. LAD had a 90% mid stenosis, circumflex had a 50% proximal narrowing and the right coronary artery is chronically occluded. He then had a stent placed in the portion of the vein graft between the diagonal and circumflex. The patient was just discharged 5 days ago after placing stents in the portion of the vein grafts as well as the round valley LAD. He was discharged 5 days ago to a rehabilitation center in [place]. He is not very active because of his large size. He does have oxygen at rehabilitation. Since he was discharged, he had increasing lower extremity edema. He was finally brought back to the Emergency Room today and admitted. He denies any chest pain. He does get short of breath with exertion. He has noticed increased heart rate but no syncope. He denies any leg pain or fever. PAST MEDICAL HISTORY: Otherwise is significant [place] [address] CONSULTATION Name: CRAIG SIMON Room: [address] IN [facility]#: [id number] Admission: 01/31/18 Attend Phys: Kendall Willingham MD Discharge: Date of : 43 Report #: [id number] replacement and tonsillectomy. He has had a stent in his left lower extremity. He has hypertension and hyperlipidemia. He is morbidly obese, weighing over 300 pounds. MEDICATIONS: At the rehab center consists of Xanax, Lipitor, Plavix and Flonase nasal spray. Additional medications include the following: He is on Protonix, metoprolol, Ranexa, Imdur, Lasix, sucralfate, spironolactone and ranitidine. ALLERGIES: He has intolerance to multiple medications including EFFIENT, SULFA DRUGS and BRILINTA. FAMILY HISTORY: Heart disease runs in the family. 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 No smoking or alcohol use. REVIEW OF SYSTEMS: He has had no history of stroke, asthma, peptic ulcer disease, liver disease and kidney disease. He has had a bladder cancer removed in the past. No psychiatric illness. PHYSICAL EXAMINATION: GENERAL: Revealed a morbidly obese male, lying in bed, appeared in no distress. VITAL SIGNS: He had a blood pressure of 120/70, pulse 80 and he is afebrile. HEENT: He was anicteric. Conjunctivae pink. Mucous membranes moist. NECK: Veins difficult to assess. CHEST: Clear to auscultation. CARDIOVASCULAR: Regular rate and grade 3 systolic ejection murmur. ABDOMEN: He had a very large protuberant. Soft. EXTREMITIES: Had pitting edema below the mid tibial area. SKIN: Cool and dry. NEUROLOGICAL: Nonfocal. RADIOLOGICAL DATA: Did have a recent echocardiogram last month that showed left ventricular hypertrophy and ejection fraction of 35%. There was a tissue aortic valve with evidence of significant aortic stenosis and mild mitral regurgitation. The peak gradient across the prosthetic aortic valve was almost 70 mmHg. The patient's chest x-ray today showed small left pleural effusion, small right effusion and cardiomegaly. He had a CT scan of the chest using a PE protocol with contrast last month that showed no pulmonary embolus or dissection and evidence of pulmonary edema. There were gallstones noted. LABORATORY DATA: His lab work: Sodium 137 and creatinine 0.9. Liver function studies were normal. Troponin 0.15, it was actually 2.37 last week. BNP 25,036. Recent LDL was only 70. Recent TSH 1.7. White blood cell count 12.0 and hemoglobin 9.7 and it was 12.8 [place] [address] CONSULTATION Name: CRAIG SIMON Room: [address] IN [facility]#: [id number] Admission: 01/31/18 Attend Phys: Kendall Willingham MD Discharge: Date of : 43 Report #: [id number] IMPRESSION AND RECOMMENDATIONS: 1. Coronary artery disease. Previous bypass surgery and multiple stents. I will continue aspirin and Plavix. 2. Severe aortic stenosis. The patient is being considered for transcatheter aortic valve replacement of his prosthetic aortic valve. 3. Cardiomyopathy. The patient has been on a beta car and adrenergic receptor binder. I would recommend adding spironolactone. 4. Edema. Recommend diuretics. 5. Morbid obesity. 6. History of bladder cancer. 7. Hypertension. 8. Hyperlipidemia. The patient is on a statin drug. <ELECTRONICALLY SIGNED> By: Juan Denson MD, [facility] 02/04/18 1512 1806 0020David Rolando Denson MD, FACC /nt
[2018-02-05] VITALS (7 sets, daily range): BP systolic 85–112; BP diastolic 36–56
[2018-02-05 05:27] LABS: CALCIUM 9.4 mg/dL (8.5-10.1); CREATININE 1.1 mg/dL (0.6-1.3); POTASSIUM 3.8 mmol/L (3.5-5.1)
[2018-02-06] VITALS: BP 103/36
[2018-02-06 05:09] VITALS: BP 101/41
[2018-02-06 06:06] LABS: CALCIUM 9.1 mg/dL (8.5-10.1); CREATININE 1.1 mg/dL (0.6-1.3); POTASSIUM 4.2 mmol/L (3.5-5.1)
[2018-02-06 08:00] VITALS: BP 106/55
[2018-02-06] MEDS ORDERED: SPIRONOLACTONE25 MG PO (11:41)
[2018-02-06 13:12] VITALS: BP 97/45
[2018-02-06 16:07] VITALS: BP 106/53
--- NOTE | 2018-02-15 10:39 | CON ---
[address] [address] CONSULTATION Name: CRAIG SIMON Room: [address] IN M.R.#: [id number] Admission: 01/31/18 Attend Phys: Kendall Willingham MD Discharge: 02/06/18 Date of : 44 Report #: [id number] THIS REPORT FOR: //name// CC: Helio Willingham REASON FOR CONSULTATION: Evaluation and recommendations regarding post-acute rehabilitation in 72-year-old male with a very complicated cardiac history, chronic systolic congestive heart failure, coronary artery disease post stents with valvular disease, who had shortness of breath and increased lower extremity swelling, was admitted on 01/31/2018, has been followed by Cardiology as well as Internal Medicine. He had stents, most recently placed on 01/21/2018 at [facility], discharged to a skilled level of care where he did have decline. He was then readmitted. 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 Previous level of function prior to the original hospitalization was modified independent to independent with activities of daily living. Current level of function is minimum to moderate assistance of 1-2 depending on therapy, activity and time of day. He does have significant debility and needs in physical and occupational therapy. Cardiology has been following closely and during the rehabilitation period has requested to be able to follow the patient as well. He does live with his in an accessible house. The patient did ambulate 80 feet with front-wheeled walker with physical therapy with min assist of at least 1. PAST MEDICAL HISTORY: Coronary artery disease, [id number] congestive heart failure exacerbation, chronic kidney disease stage 2, conjunctivitis, COPD, hypoventilation, hypertension, peripheral arterial disease, prostatism, unstable angina, aortic stenosis status post bioprosthetic aortic valve replacement. ALLERGIES: ALUMINUM HYDROXIDE, BENZONATATE, LORATADINE, MAGNESIUM HYDROXIDE, MELATONIN, PRASUGREL, SIMETHICONE, SULFA, , TICAGRELOR, CALCIUM CARBONATE AND MAGNESIUM CARBONATE. LABORATORIES: Reviewed. VITAL SIGNS: Reviewed. MEDICATIONS: Have been reviewed. FAMILY HISTORY: Heart disease. SOCIAL HISTORY: No tobacco, alcohol or illicit drug use. REVIEW OF SYSTEMS: A 14-point review of systems is done today, [place] [address] CONSULTATION Name: CRAIG SIMON Room: [address]#: [id number] Admission: 01/31/18 Attend Phys: Kendall Willingham MD Discharge: 02/06/18 Date of : 43 Report #: [id number] except as mentioned in HPI, specifically no fever, chest pain, shortness of breath, abdominal pain or distention. PHYSICAL EXAMINATION: GENERAL: Alert, oriented, no apparent distress. VITAL SIGNS: Reviewed and are stable. HEENT: Head: Atraumatic, normocephalic. Pupils are equal, round, reactive. ABDOMEN: Soft, nontender, nondistended. NEUROLOGIC: Cranial nerves 2-12 are grossly intact with no focal neuro deficits, 5/5 strength in the bilateral upper and lower extremities. SKIN: Warm and dry. No rashes or lesions noted. ASSESSMENT: 1. Nonhealing lower extremity diabetic wound. 2. Cellulitis. 3. Acute on chronic respiratory failure secondary to acute on chronic systolic congestive heart failure. 4. Coronary artery disease. 5. Chronic obstructive pulmonary disease, on breathing treatments and oxygen. 6. , was given Rocephin. PLAN: 1. Recommend acute inpatient rehabilitation to facilitate safe discharge to home setting while allowing Internal Medicine as well as Cardiology to continue to follow this male who is in a fragile medical state, especially given his recent readmission for this same problem. 2. PT, OT to continue during acute hospital stay. 3. We will follow. <ELECTRONICALLY SIGNED> By: Devi Arias DO 02/15/18 1039 1340 [id number] Arias DO /nt
== END 2018-02-06 17:50 | DRG 291 ==
LOC: M.ERS 10:30 → M.TBA-ER 12:25 → M.2W 12:25
PROVIDERS: Family Medicine; Internal Medicine Cardiovascular Disease; Personal Emergency Response Attendant; ADMIT Family Medicine
PROC: 5A09357 Assistance with Respiratory Ventilation, Less than 24 Consecutive Hours, Continuous Positive Airway Pressure (ICD-10-PCS; principal; 2018-01-31)
PROC: 5A09357 Assistance with Respiratory Ventilation, Less than 24 Consecutive Hours, Continuous Positive Airway Pressure (ICD-10-PCS; 2018-02-01)
PROC: 5A09357 Assistance with Respiratory Ventilation, Less than 24 Consecutive Hours, Continuous Positive Airway Pressure (ICD-10-PCS; 2018-02-03)
DX: I13.0 Hypertensive heart and chronic kidney disease with heart failure and stage 1 through stage 4 chronic kidney disease, or unspecified chronic kidney disease (principal); J96.20 Acute and chronic respiratory failure, unspecified whether with hypoxia or hypercapnia; I50.23 Acute on chronic systolic (congestive) heart failure; Z68.41 Body mass index [BMI] 40.0-44.9, adult; E66.2 Morbid (severe) obesity with alveolar hypoventilation; R65.10 Systemic inflammatory response syndrome (SIRS) of non-infectious origin without acute organ dysfunction; I25.10 Atherosclerotic heart disease of native coronary artery without angina pectoris; I48.91 Unspecified atrial fibrillation; Z96.653 Presence of artificial knee joint, bilateral; E78.5 Hyperlipidemia, unspecified; N18.2 Chronic kidney disease, stage 2 (mild); I73.9 Peripheral vascular disease, unspecified; D50.9 Iron deficiency anemia, unspecified; I35.0 Nonrheumatic aortic (valve) stenosis; I42.9 Cardiomyopathy, unspecified; Z85.51 Personal history of malignant neoplasm of bladder; Z95.2 Presence of prosthetic heart valve; Z95.5 Presence of coronary angioplasty implant and graft; I25.2 Old myocardial infarction; Z95.1 Presence of aortocoronary bypass graft; Z95.820 Peripheral vascular angioplasty status with implants and grafts; Z79.02 Long term (current) use of antithrombotics/antiplatelets; Z79.899 Other long term (current) drug therapy; Z88.2 Allergy status to sulfonamides; Z88.8 Allergy status to other drugs, medicaments and biological substances; Z82.49 Family history of ischemic heart disease and other diseases of the circulatory system

== ENCOUNTER 2018-02-06 14:12 | Inpatient (IN) | payer MEDICARE, OTHER ==
[~2018-02-06] VITALS: Ht 172.7 cm; Wt 127.0 kg
--- NOTE | ~2018-02-06 | H ---
[address] [address] HISTORY AND PHYSICAL Name: CRAIG SIMON Room: [address] IN ..#: [id number] Admission: 02/09/18 Attend Phys: Devi Arias DO Discharge: Date of : 44 Report #: [id number] THIS REPORT FOR: //name// For History and Physical please refer to the handwritten note in the patient's medical record. By: [id number] Records Staff MELANIA /EMILIA
[~2018-02-06 14:12] MED LIST changes: +SPIRONOLACTONE25 MG PO
[2018-02-09] MEDS ORDERED: ASPIR 8181 MG PO (16:26)
[2018-02-09] MEDS ORDERED: COZAAR 25 MG TA25 M2 PO (16:29)
[2018-02-09 17:48] VITALS: BP 128/63
[2018-02-09 20:54] VITALS: BP 138/58
[2018-02-09 20:58] VITALS: BP 101/48
[2018-02-09 22:52] VITALS: BP 108/56
--- NOTE | 2018-02-09 23:38 | NUR ---
STARTED TO DO REHAB TOOL ASSESSMENT AT 2030 BUT PATIENT HAD BOWEL URGENCY. AMBULATED TO THE BATHROOM WITH SBA, WALKER. HAD DIARRHEA NOT OBSERVED. PATIENT FLUSHED TOILET. TOOK A PICTURE OF TWO RED AREAS AFTER PATIENT STOOD UP FROM THE TOILET. ONE ON PATIENT'S LOWER LEFT BUTTOCK AND ONE ON PROXIMAL AREA LEFT LEG JUST BELOW LEFT BUTTOCK. PATIENT STATES HAS BEEN SCRATCHING IN THAT AREA. HAS REDNESS UNDER LEFT BREAST. HAS SCABS BILATERAL LOWER EXTREMITIES. NOTED A BIG BRUISE LEFT UPPER ARM. PATIENT HAD TO SIT DOWN AFTER PICTURES TAKEN AND THEN STARTED COMPLAINING OF LEFT UPPER CHEST PAIN RATED "2". B/P WAS 138/58 AND 02 SAT 94% ON ROOM AIR. PATIENT WAS ABLE TO AMBULATE BACK TO RECLINER. NITRO SL WAS GIVEN AND PATIENT STATES CHEST PRESSURE PAIN DECLINED TO A "1" BUT DIDN'T WANT ANYMORE NITRO AT THAT TIME. HAD PATIENT LAY IN BED LONG ENOUGH TO OBTAIN AND EKG PER HOSPITAL PROTOCOL AND IT SHOWED NSR WITH AND INCOMPLETE LEFT BUNDLE BRACH BLOCK. PATIENT HAS A HX OF A LEFT BUNDLE BRANCH BLOCK THAT HAD RESOLVED ACCORDING TO INFORMATION IN HIS MEDICAL HISTORY. PATIENT RETURNED TO RECLINER AFTER THE EKG STATING HE WASN'T READY TO GO TO BED. PATIENT WAS THEN ABLE TO PROVIDE INFORMATION SO THAT THE REHAB ADMISSION TOOL COULD BE COMPLETED. AT 2134 PRN XANAX WAS GIVEN PER PATIENT'S REQUEST. NOTED TREMORS IN PATIENT LEFT HAND. PATIENT TOOK MEDICATIONS WHOLE WITH WATER WITHOUT DIFFICULTY. HAS A INTERMEDIATE COUGH. STATES HAS CLEAR SPUTUM BUT THIS WAS NOT OBSERVED. SECOND NITRO WAS GIVEN AT 2258 FOR COMPLAINT OF LEFT UPPER CHEST PAIN RATED RATED "2" AND REDUCED TO A LEVEL OF "1". BLOOD PRESSURES TAKE BEFORE AND AFTER ADMINISTRATION OF NITRO. SEE VITAL SIGNS.
--- NOTE | 2018-02-10 05:13 | NUR ---
RESTED QUIETLY. NO FURTHER COMPLAINT OF CHEST DISCOMFORT. DR. DAY AND NURSE HUMAN DEVELOPMENT PROFESSOR, ANASTASIA MCNEIL INFORMED OF PATIENT'S EARLIER COMPLAINTS OF CHEST PRESSURE DISCOMFORT. ORDER FOR [id number] X 3 RECEIVED. 1ST TROPIN NEGATIVE. HOURLY ROUNDING IN PROGRESS.
[2018-02-10 07:56] LABS: HEMATOCRIT 32.1 % (42.0-52.0); HEMOGLOBIN 10.7 gm/dL (14.0-18.0); MCH 31.9 pg (26.0-34.0); MCHC 33.2 g/dL (28.0-37.0); MCV 96.1 fL (80.0-100.0); MPV 7.5 fl. (7.2-11.1); NUCLEATED RBCS 0 /100WBC; PLATELET COUNT* 358 thou/uL (150-400); RBC 3.35 mil/uL (4.50-6.00); RDW-CV 17.5 % (10.5-14.5); WBC 10.7 thou/uL (4.0-11.0)
[2018-02-10 08:02] LABS: CALCIUM 9.1 mg/dL (8.5-10.1); CREATININE 1.1 mg/dL (0.6-1.3); POTASSIUM 3.3 mmol/L (3.5-5.1)
[2018-02-10 08:24] VITALS: BP 129/60
[2018-02-10 08:59] LABS: ABSOLUTE BASOPHILS 0.1 thou/uL (0.0-0.2); ABSOLUTE EOSINOPHILS 0.1 thou/uL (0.0-0.7); ABSOLUTE MONOCYTES 0.2 thou/uL (0.0-1.2); ABSOLUTE NEUTROPHILS 9.3 thou/uL (1.6-8.1); ANISOCYTOSIS 1+; OVALOCYTES 1+; PLATELET ESTIMATE ADEQUATE; POLYCHROMASIA 1+
--- NOTE | 2018-02-10 12:07 | EKG ---
[place] [address] ELECTROCARDIOGRAM REPORT Name: CRAIG SIMON Room: [address] ADM IN M.R.#: [id number] Admission: 02/09/18 Attend Phys: Devi Arias DO Discharge: Date of : 43 Report #: [id number] THIS REPORT FOR: //name// [facility] Test Date: 2018-02-09 Test Time: 22:08:21 Pat Name: CRAIG SIMON Department: Room: [address] Gender: M Rehab Technician: KRYSTINA : 1945 Requested By: Devi Arias Order Number: [id number] MD: Juan Denson Measurements Intervals [place] Rate: 95 P: 98 MD: 131 QRS: 53 QRSD: 117 T: 206 QT: 389 QTc: 489 Interpretive Statements Sinus rhythm nonspecific st changes Compared to ECG 02/04/2018 15:29:21 no change Electronically Signed On 02-10-2018 12:07:19 CDT by Juan Denson [email or web address] <ELECTRONICALLY SIGNED> By: Juan Denson MD, [facility] 02/10/18 1207 07 07 Juan Denson MD, FACC /EPI
--- NOTE | 2018-02-10 18:08 | NUR ---
PT PROGRESSING TOWARD GOALS. PT ABLE TO AMBULATE WITH WALKER WITHOUT ASSISTANCE FROM NURSING STAFF. PT COMPLETES MOST ADL'S INDEPENDENTLY. PT REQUESTING TO USE WIFES WALKER. PT WAS ASKED TO ONLY USE THE WALKER APPROVED BY PHYSICAL THERAPY.
--- NOTE | 2018-02-10 19:50 | NUR ---
SITTING UP IN RECLINER. DENIES DISCOMFORT. SNACK PROVIDED. TOOK MEDICATIONS WHOLE ALL AT ONCE WITH WATER.
[2018-02-10 20:00] VITALS: BP 118/49
--- NOTE | 2018-02-11 05:55 | NUR ---
RESTED ON/OFF. NO COMPLAINTS OF DISCOMFORT. UP TO THE BATHROOM X ONE DURING THE NIGHT. HOURLY ROUNDING IN PROGRESS.
[2018-02-11 07:45] VITALS: BP 123/72
[2018-02-11 08:22] VITALS: BP 123/72
--- NOTE | 2018-02-11 16:51 | NUR ---
PT ALERT AND ORIENTED X 4. DENIES NAUSEA. PAIN MANAGED WITH TYLENOL. UP WITH SBA X 1 WITH WALKER AND GAIT BELT. AMBULATED TO DINING ROOM DURING SHIFT. UP TO RECLINER CHAIR IN ROOM DURING DAY WITH LEGS ELEVATED. PT HAS RED AREA ON LEFT BUTTOCK. PICTURE TAKEN. VS STABLE. HOURLY ROUNDS MAINTAINED. WILL USE CALL LIGHT FOR ASSISTANCE. CALL LIGHT WITHIN REACH. NURSING TO CONTINUE TO MONITOR.
--- NOTE | 2018-02-11 19:40 | NUR ---
SITTING UP IN RECLINER WATCHING [employer] GAME ON TV AND VISITING WITH DAUGHTER. TYLENOL GIVEN PER REQUEST FOR COMPLAINT OF RIGHT LEG RATED "1". TOOK MEDICATION WHOLE WITH WATER. DECLINED OFFER OF A SNACK.
[2018-02-11 20:05] VITALS: BP 125/59
--- NOTE | 2018-02-12 05:24 | NUR ---
A MAXIMILIANO GIVEN LAST NIGHT FOR COMPLAINT OF INDIGESTION WITH RELIEF. PATIENT DIDN'T GO TO BED UNTIL ABOUT MIDNIGHT. TYLENOL GIVEN JUST NOW FOR COMPLAINT OF RIGHT LEG PAIN RATED "2". HOURLY ROUNDING IN PROGRESS.
[2018-02-12 08:30] VITALS: BP 132/66
--- NOTE | 2018-02-12 13:58 | NUR ---
PT ALERT AND ORIENTED X 4. DENIES NAUSEA. RECEIVED TYLENOL FOR RIGHT LEG PAIN. UP WITH SBA X 1 WITH GAIT BELT AND WALKER. PARTICIPATED WITH THERAPIES IN MORNING. PT UP IN RECLINER FOR MEALS. CHOOSE TO STAY IN ROOM WIH SPOUSE DURING LUNCH. INDICATED FEELINGS OF BEING DEPRESSED IN AM. NOTIFIED LAUNDRY PRESS OPERATOR TO SPEAK WITH PATIENT. VS STABLE. CALL LIGHT WITHIN REACH.
--- NOTE | 2018-02-12 14:06 | NUR ---
SW met with pt to complete initial assessment, introduce self, and SW role on inpt rehab unit. Pt alert, oriented. Pt visiting pt. Pt lives at home with his and has supportive family. Pt has a history of HH after open heart surgery 5 years ago. Pt has DME: rollator, RW, canes, grab bars, double railings. Pt has 13 stairs in the home and his goal is to be able to manage his stairs safely. Pt expressed frustration and possible depression related to being in the hospital 2 months and also towards trying to arrange for appt with surgeon on heart procedure at on at 1:40 pm. Pt was not sure he wanted any medication for his depression and had already spoken with spiritual care and now with SW as well. SW suggested possibly [facility] could be a resource for emotional support; pt was open to talking with anyone to help with his "frustration". SW discussed team conferences on Monday and SW to continue to follow to assist with safe dc planning.
--- NOTE | 2018-02-12 14:19 | NUR ---
NUTRITION: PT ADMITTED TO REHAB WITH CARDIAC DEBILITY. PT AND STATED THEY HAVE BEEN THROUGH THE CARDIAC REHAB MULTIPLE TIMES. HE FOLLOWS A HEART HEALTHY DIET AT HOME - LOW Na, LOW FAT. WE BRIEFLY DISCUSSED THIS DIET, AND PT STATED HE HAS ALL THE INFO AND HANDOUTS AT HOME. HE STATED HIS PO INTAKE IS FAIR. CONSULT WAS RECEIVED FOR "JOI, CARDIAC PT." WT: 278#, WHICH PT STATED IS HIS USUAL. RD ORDERED PT'S DIET AGAIN TO REFLECT HIS PREFERENCE (HEART HEALTHY DIET WITH NO COFFEE, NO BROCCOLI). WILL FOLLOW WEEKLY.
--- NOTE | 2018-02-12 17:47 | NUR ---
PT PARTICIPATED IN AFTERNOON THERAPIES. TYLENOL GIVEN FOR RIGHT LEG PAIN. PT AMBULATED TO DINING ROOM FOR DINNER MEAL. HOURLY ROUNDS MAINTAINED. USES CALL LIGHT FOR ASSISTANCE. CALL LIGHT WITHIN REACH.
[2018-02-12 20:00] VITALS: BP 103/46
--- NOTE | 2018-02-12 20:10 | NUR ---
SITTING UP IN RECLINER. TYLENOL GIVEN PER REQUEST FOR COMPLAINT OF RIGHT LEG PAIN RATED "1". XANAX ALSO GIVEN PER REQUEST. TOOK MEDICATIONS WHOLE ALL AT ONCE WITH WATER. ALSO GAVE A MAXIMILIANO PER REQUEST.
--- NOTE | 2018-02-13 05:51 | NUR ---
RESTED QUIETLY. NO FURTHER COMPLAINT OF PAIN. UP X ONE DURING THE NIGHT TO VOID. AMBULATES WITH SBA, GAITBELT WALKER. HOURLY ROUNDING IN PROGRESS.
[2018-02-13 08:00] VITALS: BP 149/77
--- NOTE | 2018-02-13 18:18 | NUR ---
PT HAS PARTICIPATED WITH THERAPIES AND AMBULATES WELL WITH WALKER, GAITBELT AND SBA OF 1. PRN FOR LEG PAIN GIVEN WITH GOOD EFFECT. PT ALERT AND ORIENTATED. PT ABLE TO VOICE NEEDS AND PROGRESSES TOWARDS GOALS. HOURLY ROUNDING CONTINUES.
[2018-02-13 20:43] VITALS: BP 105/51
--- NOTE | 2018-02-14 02:22 | NUR ---
ASSUMED CARE @ 1955-02/13-.SITS IN RECLINER PLAYING CARDS & WATCHING TV @ SAME TIME.SEE PAIN MANAGEMENT @ .PRN XANAX GIVEN ORAL @ 2105-PER PT'S REQUEST.TOOK FIRST HS RESP TX BEFORE GOING TO BED @ 2345.ROSAURA CARE DONE TO PINK ROSAURA ANAL AREAS.THEN,MOISTURE BARRIER CREAM APPLIED @ 2345.BED ALARM PUT ON @ 2345.TURNS SELF @ NIGHT.ON HOURLY ROUNDS.MELTER CASTER DOING ODD HOUR ROUNDS.
--- NOTE | 2018-02-14 05:04 | NUR ---
SLEPT LATE @ - & SLEEPING GOOD ALL NIGHT.BRP W/ SBA X2 DURING NIGHT.SEE 2ND PAIN MANAGEMENT @ 1034.TOOK ALL BETTY.PUDDING HS SNACK.
[2018-02-14 05:11] LABS: HEMATOCRIT 31.3 % (42.0-52.0); HEMOGLOBIN 10.4 gm/dL (14.0-18.0); MCH 32.1 pg (26.0-34.0); MCHC 33.1 g/dL (28.0-37.0); MPV 7.8 fl. (7.2-11.1); RBC 3.22 mil/uL (4.50-6.00); RDW-CV 17.9 % (10.5-14.5)
[2018-02-14 05:34] LABS: CREATININE 1.1 mg/dL (0.6-1.3); MAGNESIUM 1.5 mg/dL (1.8-2.4); POTASSIUM 4.1 mmol/L (3.5-5.1); TOTAL BILIRUBIN 0.6 mg/dL (<0.1-1.0); TOTAL PROTEIN 6.3 g/dL (6.4-8.2)
[2018-02-14 08:00] VITALS: BP 120/61
--- NOTE | 2018-02-14 15:04 | NUR ---
JAQUAN and Dr Arias met with pt to review team conference summary and plan for pt to remain on rehab unit one more week with dc next Wednesday 02/21. Pt asked about cardiology appt at and Dr Arias explained that pt does not need to go to an appt tomorrow after all. Pt in agreement with plan. SW to continue to follow to assist with safe dc planning.
--- NOTE | 2018-02-14 17:47 | NUR ---
ASSUMED CARE AT 0730 PATIENT ALERT/ORIENTED, TYLENOL GIVEN FOR PAIN TO RIGHT LEG WITH GOOD RESULTS, UP WITH ASSIST OF ONE AND WALKER/GAIT BELT, PARTICIPATED IN ALL THERAPIES, TO DINING ROOM FOR THERAPIES, CALL LIGHT IN PLACE, BED/CHAIR ALARMS IN PLACE, HOURLY ROUNDING COMPLETED. MAG LEVEL LOW, PROTOCOL INITIATED
--- NOTE | 2018-02-14 19:50 | NUR ---
SITTING UP IN RECLINER WATCHING TV. TYLENOL GIVEN FOR PAIN IN RIGHT LEG RATED "2". TOOK MEDICATIONS WHOLE WITH WATER. SNACK PROVIDED.
[2018-02-14 20:09] VITALS: BP 103/54
--- NOTE | 2018-02-15 05:33 | NUR ---
GIVEN TYLENOL FOR COMPLAINT OF RIGHT LEG PAIN DURING THE NIGHT WITH RELIEF. CURRENTLY SITTING UP IN RECLINER. HOURLY ROUNDING IN PROGRESS.
[2018-02-15 06:07] LABS: CALCIUM 9.6 mg/dL (8.5-10.1); CREATININE 1.3 mg/dL (0.6-1.3); MAGNESIUM 1.8 mg/dL (1.8-2.4); POTASSIUM 4.1 mmol/L (3.5-5.1)
[2018-02-15 08:18] VITALS: BP 115/60
--- NOTE | 2018-02-15 17:48 | NUR ---
PT IS ALERT AND ORIENTATED . PRN FOR KNEE PAIN GIVEN TODAY WITH GOOD EFFECT.PT IS CONTINENT OF B+B AND AMBULATES WITH WALKER GAITBELT ON AND SBA. PT PROGRESSES TOWARDS GOALS AND HOURLY ROUNDING CONTINUES.
[2018-02-15 20:05] VITALS: BP 107/59
--- NOTE | 2018-02-16 05:09 | NUR ---
ASSUMED PT CARE AT 1930. PT ALERT AND ORIENTED X4, POLITE AND COOPERATIVE WITH CARES. PT SITTING UP IN RECLINER, STAYED UP UNTIL 2229. PT TO BATHROOM TO VOID WITH GAIT BELT, WALKER AND ASSIST OF ONE. PRN TYLENOL FOR RIGHT LEG PAIN. PT ON STRICT I&O. SLIGHT EDEMA TO BLE. TAKES MEDS WHOLE WITH WATER WITHOUT DIFFICULTY. USES CALL LIGHT APPROPRIATELY. CALL LIGHT AND FREQUENTLY USED ITEMS WITHIN REACH. HOURLY ROUNDING IN PROGRESS, WILL CONTINUE TO MONITOR.
[2018-02-16 07:51] VITALS: BP 119/67
--- NOTE | 2018-02-16 17:58 | NUR ---
ASSUMED CARE AT 0730 PATIENT ALERT/ORIENTED, NO COMPLAINTS OF PAIN THIS SHIFT, SPOKE WITH PATIENT AT LENGTH ABOUT CHAIR ALARMS AND BEING MOD I IN ROOM. SPOKE WITH MISTI KATE AND ASKED HER OPINION, SHE STATES SHE THOUGHT HE COULD BE MOD I IN ROOM, SPOKE WITH RODGER AND SHE STATED THAT SPEECH DIDN'T THINK HE WAS COGNITIVE ALERT ENOUGH. EXPLAINED TO PATIENT THAT NOTHING WOULD CHANGE UNTIL MONDAY AT THE EARLIEST BEFORE WE KNEW IF HE COULD BE MOD I. WILL PASS INFO ON TO ONCOMING NURSE.
[2018-02-16 20:12] VITALS: BP 99/50
--- NOTE | 2018-02-17 05:05 | NUR ---
ASSUMED PT CARE AT 1930. PT ALERT AND ORIENTED, POLITE AND COOPERATIVE WITH CARES. PT SITTING UP IN RECLINER, LIKES TO STAY UP LATE. PT TO BATHROOM TO VOID WITH GAIT BELT, WALKER AND ASSIST OF ONE. PT ON STRICT I&O. SLIGHT EDEMA TO BLE. TAKES MEDS WHOLE WITH WATER WITHOUT DIFFICULTY. PRN TUMS ONCE THIS SHIFT. USES CALL LIGHT APPROPRIATELY. CALL LIGHT AND FREQUENTLY USED ITEMS WITHIN REACH. HOURLY ROUNDING IN PROGRESS, WILL CONTINUE TO MONITOR.
[2018-02-17 08:00] VITALS: BP 126/59
--- NOTE | 2018-02-17 18:02 | NUR ---
AM ASSESSMENT AND VITAL SIGNS COMPLETED DOCUMENTED. PT COMPLETED ALL THERAPY SESSIONS AND TOLERATED THEM WELL. PT IS AMBULATORY WITH A GAIT BELT AND WALKER, HE USES THE CALL LIGHT FOR ASSISTANCE WHEN GETTING UP. PRN TYLENOL GIVEN X2 FOR RIGHT LEG PAIN, RELIEF OBTAINED BOTH TIMES. FALL PRECAUTIONS AND HOURLY ROUNDING CONTINUE.
[2018-02-17 19:22] VITALS: BP 107/48
[2018-02-18 05:18] LABS: HEMATOCRIT 32.1 % (42.0-52.0); HEMOGLOBIN 10.5 gm/dL (14.0-18.0); MCH 32.2 pg (26.0-34.0); MCHC 32.8 g/dL (28.0-37.0); MCV 98.2 fL (80.0-100.0); MPV 7.5 fl. (7.2-11.1); RBC 3.27 mil/uL (4.50-6.00); RDW-CV 17.9 % (10.5-14.5); WBC 7.3 thou/uL (4.0-11.0)
[2018-02-18 05:33] LABS: ALBUMIN 3.1 g/dL (3.4-5.0); CALCIUM 9.4 mg/dL (8.5-10.1); CREATININE 1.1 mg/dL (0.6-1.3); POTASSIUM 4.7 mmol/L (3.5-5.1); TOTAL BILIRUBIN 0.6 mg/dL (<0.1-1.0); TOTAL PROTEIN 6.2 g/dL (6.4-8.2)
--- NOTE | 2018-02-18 05:42 | NUR ---
ASSUMED PT CARE AT 1930. PT ALERT AND ORIENTED, POLITE AND COOPERATIVE WITH CARES. PT SITTING UP IN RECLINER WATCHING TELEVISION, LIKES TO STAY UP LATE. PT TO BATHROOM TO VOID WITH GAIT BELT, WALKER AND ASSIST OF ONE. PT ON STRICT I&O. SLIGHT ELEMA TO BLE. TAKES MEDS WHOLE WITH WATER WITHOUT DIFFICULTY. PRN TYLENOL AT BEGINNING OF SHIFT. PRN XANAX AT 2200. TAKES MED WHOLE WITH WATER WITHOUT DIFFICULTY. CALLL LIGHT AND FREQUENTLY USED ITEMS WITHIN REACH. HOURLY ROUNDING IN PROGRESS, WILL CONTINUE TO MONITOR.
[2018-02-18 07:58] VITALS: BP 119/53
--- NOTE | 2018-02-18 18:37 | NUR ---
PT HAS BEEN PLEASANT AND COOPERATIVE. PT AMBULATED TO THE DINING ROOM FOR MEALS, TOLERATED WELL. PRN TYLENOL GIVEN FOR LEG PAIN WITH GOOD RESULTS. FALL PRECAUTIONS AND HOURLY ROUNDING CONTINUE.
[2018-02-18 19:50] VITALS: BP 128/44
--- NOTE | 2018-02-19 04:35 | NUR ---
PATIENT HAS REMAINED ALERT AND ORIENTED X 4 THROUGHOUT THE SHIFT. UP AT BEDSIDE IN RECLINER UNTIL HS. PROVIDED TYLENOL FOR RIGHT LEG PAIN AND XANAX FOR REST REQUESTED. PRN TUMS ALSO PROVIDED X 1 THIS SHIFT. PATIENT STATES HE FEELS HE IS MAKING PROGRESS WITH ENDURANCE. UP TO BR WITH WALKER AND GAIT BELT, SBA FOR SAFETY. ACTIVITIES APPEARED TO BE SAFE AND PURPOSEFUL IN MOVEMENT. INDEPENDENT WITH REMOVING SHIRT, SWEAT PANTS AND SOCKS FOR BED. EXHIBITING MILD SOA WITH THESE ACTIVITIES. VITAL SIGNS STABLE ON ROOM AIR WITH SPOT O2 SA 97%. CONTINUE TO MONITOR.
[2018-02-19 08:32] VITALS: BP 123/57
--- NOTE | 2018-02-19 17:08 | NUR ---
NURSING DOCUMENTATION BY GREYSON TORREZ RN REVIEWED
--- NOTE | 2018-02-19 17:08 | NUR ---
PATIENT REMAINS ALERT AND ORIENTED. DENIES PAIN. PER PT/OT PATIENT MAY BE MODIFIED INDEP ONCE PHYSICIAN WRITES ORDER-MESSAGE LEFT FOR DR. ALEXANDRE. AMBULATES WITH STANDBY ASSIST, WALKER, AND GAITBELT CURRENTLY. TOLERATING MEALS. PLANS TO DC HOME WED. VSS. CALL LIGHT WITHIN REACH. WILL CONTINUE TO MONITOR.
[2018-02-19 20:00] VITALS: BP 120/52
--- NOTE | 2018-02-20 05:10 | NUR ---
ASSUMED PT CARE AT 1930. PT ALERT AND ORIENTED X4, POLITE AND COOPERATIVE WITH CARES. UP TO BATHROOM WITH GAIT BELT, WALKER AND SBA FOR SAFETY X3. STOOL X1 THIS SHIFT. TYLENOL ONCE THIS SHIFT FOR LEG PAIN. TUMS ONCE THIS SHIFT PER PT REQUEST. AWAITING RETURN CALL FROM DR. ALEXANDRE FOR ORDER MAKING PT MOD I IN ROOM. THERAPIES HAVE APPROVED. PT ANTICIPATING DISCHARGE ON MONDAY. CALL LIGHT AND FREQUENTLY USED ITEMS WITHIN REACH. HOURLY ROUNDING IN PROGRESS, WILL CONTINUE TO MONITOR.
[2018-02-20 08:02] VITALS: BP 120/57
--- NOTE | 2018-02-20 15:50 | NUR ---
SW met with pt to discuss dc planning and in preparation for team conference tomorrow. Pt to dc home with tomorrow; pt and pt in agreement with plan. SW discussed HH with pt and provided options and to be arranged and finalized at dc tomorrow. Pt plans to be here in the morning. SW provided referral/resource for [facility] follow up services. SW to continue to follow to assist with finalizing safe dc plan.
--- NOTE | 2018-02-20 17:46 | NUR ---
PT ALERT AND ORIENTED X 4. DENIES NAUSEA. TYLENOL GIVEN FOR RIGHT LEG PAIN DURING SHIFT. SBA X 1 WITH WALKER AND GAIT BELT. PARTICIPATED IN THERAPY DURING SHIFT. RECEIVED ORDER FOR PATIENT TO BE MOD I IN ROOM. HOURLY ROUNDS MAINTAINED. WILL USE CALL LIGHT FOR ASSISTANCE. CALL LIGHT WITHIN REACH. NURSING TO CONTINUE TO MONITOR.
[2018-02-20 20:00] VITALS: BP 101/46
[2018-02-21 04:56] LABS: HEMOGLOBIN 10.6 gm/dL (14.0-18.0); MCH 32.5 pg (26.0-34.0); MCHC 33.2 g/dL (28.0-37.0); MPV 7.5 fl. (7.2-11.1); RBC 3.27 mil/uL (4.50-6.00); RDW-CV 18.4 % (10.5-14.5); WBC 8.3 thou/uL (4.0-11.0)
[2018-02-21 05:08] LABS: ALBUMIN 3.1 g/dL (3.4-5.0); CALCIUM 9.1 mg/dL (8.5-10.1); CREATININE 1.1 mg/dL (0.6-1.3); PHOSPHORUS* 3.8 mg/dL (2.5-4.9); POTASSIUM 3.8 mmol/L (3.5-5.1)
--- NOTE | 2018-02-21 05:14 | NUR ---
PT ALERT AND ORIENTED X4, POLITE AND COOPERATIVE WITH CARES. TYLENOL TWICE THIS SHIFT FOR RIGHT LEG PAIN. PT IS MOD I IN ROOM. CALLS OUT APPROPRIATELY FOR ASSISTANCE. PT ANTICIPATING DISCHARGE HOME TODAY. CALL LIGHT AND FREQUENTLY USED ITEMS WITHIN REACH. HOURLY ROUNDING IN PROGRESS, WILL CONTINUE TO MONITOR.
[2018-02-21 08:00] VITALS: BP 121/57
[2018-02-21] MEDS ORDERED: CARAFATE 1 GM TA1 G1 PO (10:35)
[2018-02-21 10:36] VITALS: BP 121/57
[2018-02-21 10:57] VITALS: BP 121/57
--- NOTE | 2018-02-21 10:59 | NUR ---
Pt to dc home with today after team conference. Pt in agreement with plan. SW faxed referral info and final orders and med list to pt preference of [facility] [phone] fax [phone]. Pt has all DME at home already and pt here to provide pt ride home.
--- NOTE | 2018-02-21 16:07 | NUR ---
PATIENT DISCHARGED TO HOME TODAY, ALL GOALS MET, DISCHARGE PAPERS GIVEN TO FAMILY AND REVIEWED WITH PATIENT/FAMILY, ALL QUESTIONS ANSWERED, PRESCRIPTION GIVEN TO PATIENT. ALL BELONGINGS SENT WITH PATIENT, PATIENT LEFT FLOOR VIA W/C WITH STAFF TO CAR
--- NOTE | 2018-02-28 14:08 | D ---
[facility] [address] [place] [address] DISCHARGE SUMMARY Name: ALFREDCRAIG Parra Room: [address] [place]#: [id number] Admission: 02/09/18 Attend Phys: Devi Arias DO Discharge: 02/21/18 Date of : 43 Report #: [id number] THIS REPORT FOR: //name// CC: Devi Walton DISCHARGE DIAGNOSES: Severe cardiac debility with acute on chronic congestive heart failure. DISCHARGE DISPOSITION: To the home setting. He is to follow with his primary care physician within 1 week and his center mgr, Dr. Eastman within 1 week. He will then further follow with Medicine. Home health PT, OT and nursing. Notifications for physician were given. Maintain fall precautions. Medications were reviewed and reconciled by myself and are available in the MAR. The discharge prescriptions were metoprolol 25 mg p.o. daily, spironolactone 25 mg p.o. daily. MEDICATIONS: Reviewed, reconciled by myself and are available in the MAR. The patient did satisfy modified independent level of care in the acute rehabilitation hospital prior to discharge home and met all his goals for cardiac rehabilitation. <ELECTRONICALLY SIGNED> By: Devi Arias DO 02/28/18 1408 [id number] Arias DO /nt
== END 2018-02-21 14:21 | disposition home health service (06) | DRG 70 ==
LOC: M.REH 14:12
PROVIDERS: Family Medicine; Internal Medicine; ADMIT Physical Medicine & Rehabilitation
DX: G93.40 Encephalopathy, unspecified (principal); J96.20 Acute and chronic respiratory failure, unspecified whether with hypoxia or hypercapnia; I50.23 Acute on chronic systolic (congestive) heart failure; I13.0 Hypertensive heart and chronic kidney disease with heart failure and stage 1 through stage 4 chronic kidney disease, or unspecified chronic kidney disease; N39.0 Urinary tract infection, site not specified; Z68.41 Body mass index [BMI] 40.0-44.9, adult; R53.81 Other malaise; I25.10 Atherosclerotic heart disease of native coronary artery without angina pectoris; J44.9 Chronic obstructive pulmonary disease, unspecified; N18.2 Chronic kidney disease, stage 2 (mild); D64.9 Anemia, unspecified; Z96.653 Presence of artificial knee joint, bilateral; I73.9 Peripheral vascular disease, unspecified; E66.01 Morbid (severe) obesity due to excess calories; I87.2 Venous insufficiency (chronic) (peripheral); I25.5 Ischemic cardiomyopathy; I48.91 Unspecified atrial fibrillation; G47.33 Obstructive sleep apnea (adult) (pediatric); Z88.8 Allergy status to other drugs, medicaments and biological substances; Z88.2 Allergy status to sulfonamides; Z95.1 Presence of aortocoronary bypass graft; Z95.5 Presence of coronary angioplasty implant and graft; Z95.2 Presence of prosthetic heart valve; Z82.49 Family history of ischemic heart disease and other diseases of the circulatory system